=== PATIENT | female | born 1980 | race Caucasian/White ===

== ENCOUNTER 2016-11-12 12:47 | Day surgery (SDC) | payer BC, MEDICAID ==
[2016-11-12] MEDS ORDERED: PROPOFOL 10 MG/ML VIAL IV ONE ×2 (14:00→14:48)
[2016-11-12] MEDS ORDERED: LIDOCAINE 2% MDV (20MG/ML) 20ML VIAL IV ONE (14:48)
--- NOTE | 2016-11-15 08:30 | Operative Note ---
DATE OF SURGERY: 11/12/2016 SURGEON: Cara Jean Baptiste MD OPERATION: COLONOSCOPY. INDICATIONS: This is a 36-year-old female with history of chronic diarrhea who presented for colonoscopy. POSTOPERATIVE DIAGNOSIS: Normal colonic and terminal ileum mucosa with no neoplasm or ulcerative lesions. ANESTHESIA: Sedation is per Anesthesia. Pulse oximetry was monitored throughout the procedure to maintain O2 saturation of 90% or greater. Supplemental oxygen was administered via nasal cannula. Cardiac and vital signs were monitored throughout the duration of the procedure, and they were stable. The procedure of colonoscopy and risks and benefits of the procedure, including the risk of bleeding and perforation, among others, were explained to the patient who voiced understanding and desired to have the procedure done. Physical examination was performed, and the patient was found stable for sedation. PROCEDURE: The patient was placed in the left lateral position. Sedation was initiated. A digital rectal exam was performed and showed some mild external hemorrhoids with no palpable rectal masses. An Olympus PCF-180AL colonoscope was then inserted into the rectum under direct visualization. It was advanced to the cecum without difficulty. The ileocecal valve and appendiceal orifice were identified and photographed. The colonic mucosa was carefully examined upon introduction of the colonoscope. There were no lesions noted. The ileocecal valve was intubated and the terminal ileum mucosa was inspected for about 10 cm and it appeared normal. The colonoscope was then withdrawn while carefully examining the colonic mucosal surfaces. No other lesions were noted. Random biopsies were obtained from the ileocecal valve and the rest of the colon. In the rectum, retroflexion was performed and grade 1 internal hemorrhoids were noted. The colonoscope was then withdrawn and the procedure was terminated. The patient tolerated the procedure well without any immediate complications. She remained with stable vital signs and was transferred to the recovery room. RECOMMENDATIONS: 1. She should be on a high-fiber diet. 2. She is to have a repeat colonoscopy at age 52. Thank you for allowing me to participate in the care of your patient. Cara Jean Baptiste MD CC: Dr. Morales GUSTAFSON
== END 2016-11-12 15:00 | disposition home or self-care (01) ==
LOC: HOP 12:47
PROVIDERS: ATTEND Internal Medicine Gastroenterology
DX: R19.7 Diarrhea, unspecified (principal); E78.00 Pure hypercholesterolemia, unspecified; E11.9 Type 2 diabetes mellitus without complications; Z79.4 Long term (current) use of insulin; F31.9 Bipolar disorder, unspecified; I10 Essential (primary) hypertension
CPT/HCPCS: 80053; 83036

== ENCOUNTER 2016-12-16 19:46 | Emergency (ER) | payer BC, MEDICAID ==
--- NOTE | 2016-12-16 20:22 | Emergency Department Record ---
History of Present Illness - General Chief Complaint: Headache Migraine Stated Complaint: MIGRAINE Time Seen by Provider: 12/16/16 20:21 Mode of Arrival: Ambulatory - History of Present Illness Initial Comments: The patient is here due to a BISHOP for the last 12 hours that will not go away. The pain is a throbbing pain in the R frontal area that came on this AM and gradually worsened. She has nausea but no vomiting and denies any visual changes. The patient has a long hx of these exact same BISHOP's and is seeing an Neurologist at [facility]. She usually receive Reglan, Benadryl and Toradol for the pain with resolution of her symptoms. MD Complaint: Headache, "Migraine" Onset/Timin -: Hour(s) Onset Description: Gradual Location: Frontal, Neck, Right Severity scale (1-10): 9 Quality: Pulsatile, Throbbing, Similar to previous headaches Consistency: Constant Improves With: Nothing Worsens With: None, Movement of head/neck Treatments Prior to Arrival: Prescription analgesic - Related Data Home Medications Medication Instructions Recorded Confirmed Last Taken Insulin Aspart [Novolog] 100 unit SQ TID 03/04/14 12/16/16 12/15/16 Dapagliflozin Propanediol [Farxiga] 10 mg PO DAILY 04/03/15 12/16/16 12/15/16 Insulin Detemir [Levemir] 120 unit SQ ASDIR 04/03/15 12/16/16 12/15/16 Liraglutide [Victoza 2-Cas] 1.2 mg SQ DAILY pen.injctr 06/01/16 12/16/16 Quetiapine Fumarate [Seroquel] 100 mg PO QAM tab 12/14/16 12/16/16 12/15/16 Quetiapine Fumarate [Seroquel] 100 mg PO QPM tab 12/14/16 12/16/16 12/15/16 Previous Rx's Medication Instructions Recorded Metformin HCl [Glucophage] 1,000 mg PO BID #180 tablet 05/21/15 Allergies Allergy/AdvReac Type Severity Reaction Status Date / Time doxycycline Allergy Intermediate VOMITING Verified 12/16/16 20:18 fluoxetine HCl [From Prozac] Allergy Intermediate HYPERSENSIT Verified 12/16/16 20:18 IVITY Sulfa (Sulfonamide Allergy Intermediate HIVES Verified 02/16/17 20:18 Antibiotics) sulfamethoxazole Allergy Intermediate HIVES Verified 12/16/16 20:18 [From Bactrim] sumatriptan [From Imitrex] Allergy Intermediate TACHYCARDIA Verified 12/16/16 20 :18 sumatriptan succinate Allergy Intermediate TACHYCARDIA Verified 12/16/16 20:18 [From Imitrex] topiramate [From Topamax] Allergy Intermediate DIZZINESS Verified 12/16/16 20:18 trimethoprim [From Bactrim] Allergy Intermediate HIVES Verified 12/16/16 20:18 SILK TAPE AdvReac Mild RASH Uncoded 12/16/16 20:18 Travel Screening - Travel/Exposure Within Last 30 Days Have you traveled within the last 30 days?: No - Travel/Exposure Within Last Year Have you traveled outside the [place] in the last year?: No - Additonal Travel Details Have you been exposed to anyone with a communicable illness?: No - Travel Symptoms Symptom Screening: None Review of Systems Constitutional: Denies: Chills, Fever, Malaise Eyes: Denies: Eye discharge ENT: Denies: Congestion Respiratory: Denies: Cough Cardiovascular: Denies: Arrhythmia Past Medical History - SOCIAL HISTORY Smoking Status: Never smoker Alcohol Use: None Drug Use Detail:: Marijuana - RESPIRATORY Hx Respiratory Disorders: Yes Hx Bronchitis: Yes (2014) Hx Sleep Apnea: Yes Hx of CPAP: No - CARDIOVASCULAR Hx Cardio Disorders: No Hx Edema: Yes Hx Hypertension: Yes Comment:: high cholesterol - NEURO Hx Neuro Disorders: Yes Hx Headaches: Yes Hx of Migraines: Yes Hx Neuropathy: Yes (BLE) Hx Seizures: Yes (high fever related as a child none since 7yrs old) - GI Hx GI Disorders: Yes Hx Abdominal Pain: Yes Hx Reflux: Yes Hx Irritable Bowel: Yes - Hx Genitourinary Disorders: No Hx UTI: Yes Comment:: PCOS, endometriosis in abd cavity - ENDOCRINE Hx Endocrine Disorders: Yes Hx Diabetes: Yes Hx Thyroid Disease: No - MUSCULOSKELETAL Hx Musculoskeletal Disorders: Yes Comment:: Bulging discs - PSYCH Hx Psych Problems: No Hx Anxiety: Yes (panic attacks) Hx Behavior Problems: Yes (bipolar) - HEMATOLOGY/ONCOLOGY Hx Hematology/Oncology Disorders: No Family Medical History Any Significant Family History?: No Hx Cancer: Father, Mother, Grandparents *Cancer Comment: lung, colon, prostate, melanoma Hx Diabetes: Father, Mother, Grandparents Hx Heart Disease: Father, Mother Physical Exam - General General Appearance: Alert, Oriented x3, Cooperative, No acute distress - Head Head exam: Atraumatic, Normocephalic, Normal inspection - Eye Eye exam: Normal appearance - Neck Neck exam: Normal inspection, Full ROM. negative: Lymphadenopathy, Meningismus (The neck is very supple.), Tenderness - Respiratory Respiratory exam: Normal lung sounds bilaterally. negative: Respiratory distress - Cardiovascular Cardiovascular Exam: Regular rate, Normal rhythm, Normal heart sounds - Extremities Extremities exam: Normal inspection, Full ROM, Normal capillary refill. negative: Tenderness - Neurological Neurological exam: Alert, Normal gait, Other (Neg Drift and Rhomberg exams.). negative: Abnormal gait, Altered, Motor sensory deficit Course Vital Signs 12/16/16 19:56 Temperature 99.2 F Pulse Rate [ 103 H Pulse Ox Probe] Respiratory 18 Rate Blood Pressure 124/78 [Left Arm] Pulse Ox 98 - Reevaluation(s) Reevaluation #1: The patient is doing much better and the BISHOP is much improved. She feels ready for home. She denies any new symptoms or new issues with her BISHOP's. 12/16/16 21:51 Disposition Disposition: Discharge Clinical Impression: Migraine Qualifiers: Migraine type: other Status migrainosus presence: without status migrainosus Intractability: not intractable Qualified Code(s): G43.809 - Other migraine, not intractable, without status migrainosus Disposition: Home, Self-Care Condition: (1) Good Instructions: Migraine Headache (ED) Additional Instructions: Continue your regular migraine medicine regimen. Please see your PCP for recheck next week if needed. Return to the ER if worse. Forms: Patient Portal Access Time of Disposition: 21:50
[2016-12-16] MEDS ORDERED: METOCLOPRAMIDE HCL 10 MG/2 ML VIAL IVP ONE (20:34)
[2016-12-16] MEDS ORDERED: DIPHENHYDRAMINE HCL IV 50 MG/ML VIAL IVP ONE (20:34)
[2016-12-16] MEDS ORDERED: 0.9 % SODIUM CHLORIDE 1,000 ML BAG IV ONE (20:34)
[2016-12-16] MEDS ORDERED: KETOROLAC 30 MG/ML VIAL IVP ONE (20:34)
== END 2016-12-16 21:58 | disposition home or self-care (01) ==
LOC: ER 19:46
DX: G43.809 Other migraine, not intractable, without status migrainosus (principal); R11.0 Nausea
CPT/HCPCS: 99284 ×2; 96374; 96375; J1885; J1200; J2765; J7030

== ENCOUNTER 2016-12-29 18:26 | Emergency (ER) | payer BC, MEDICAID ==
[2016-12-29 20:07] LABS: BASO % 0.1 % (0-6); EOS % 9.7 % (0-6); HEMATOCRIT 33.8 % (35.0-47.0); HEMOGLOBIN 11.3 gm/dl (11.6-16.0); LYMPH % 30.6 % (16-45); MEAN CELL VOLUME 88.7 fl (81-97); MEAN CORPUSCULAR HGB CONC 33.4 g/dl (32-36); MEAN PLATELET VOLUME 10.6 fl (7.4-10.4); MONO % 6.6 % (0-9); PLATELET COUNT 167 K/uL (130-400); RED BLOOD COUNT 3.81 M/uL (3.80-5.40); RED CELL DISTRIBUTION WIDTH 14.9 % (11.5-14.5); WHITE BLOOD COUNT W/O DIFF 6.7 K/uL (4.2-12.2)
[2016-12-29 20:08] LABS: MEAN CORPUSCULAR HEMOGLOBIN 29.6 pg (27-33)
[2016-12-29 20:22] LABS: ANION GAP 16.5 (7-16); BLOOD UREA NITROGEN 15 mg/dL (7-17); CARBON DIOXIDE 24.5 mmol/L (22-30); CREATININE 0.7 mg/dL (0.52-1.04); EST GLOMERULAR FILTRATION RATE > 60 ml/min; GLUCOSE,RANDOM 374 mg/dL (70-110)
[2016-12-29] MEDS ORDERED: HUMULIN R 100 UNIT/ML VIAL SC ONE (20:44)
[2016-12-29] MEDS ORDERED: HUMULIN R 100 UNIT/ML VIAL SQ ONE (20:44)
[2016-12-29] MEDS ORDERED: HYDROCODONE/APAP 5/325MG TABLET PO ONE (20:56)
--- NOTE | 2016-12-29 20:58 | Emergency Department Record ---
History of Present Illness - General Chief complaint: Rash Stated complaint: RASH ON NECK Time Seen by Provider: 12/29/16 19:24 Source: Patient Mode of Arrival: Ambulatory Limitations: No limitations - History of Present Illness Initial comments: pt has rash on back of her neck which is getting worse. she has had it for 2 wks and saw her family doctor who gave her an ointment for it. it continues to get worse and is painful MD complaint: Abscess/boil, Rash Onset/Timin -: Week(s) Hx Tetanus Toxoid Vaccination: Yes Year of Tetanus Vaccination: 2011 Location: Neck Severity: Moderate Severity scale (1-10): 9 Quality: Aching Consistency: Constant Improves with: None Worsens with: Palpation, Movement Associated symptoms: Denies other symptoms Treatments Prior to Arrival: OTC topical medication - Related Data Home Medications Medication Instructions Recorded Confirmed Last Taken Insulin Aspart [Novolog] 100 unit SQ TID 03/04/14 12/29/16 1 Day Ago Dapagliflozin Propanediol [Farxiga] 10 mg PO DAILY 04/03/15 12/29/16 1 Day Ago Insulin Detemir [Levemir] 120 unit SQ ASDIR 04/03/15 12/29/16 1 Day Ago Liraglutide [Victoza 2-Cas] 1.2 mg SQ DAILY pen.injctr 06/01/16 12/29/16 1 Day Ago Quetiapine Fumarate [Seroquel] 100 mg PO QAM tab 12/14/16 12/29/16 1 Day Ago Quetiapine Fumarate [Seroquel] 100 mg PO QPM tab 12/14/16 12/29/16 1 Day Ago Previous Rx's Medication Instructions Recorded Metformin HCl [Glucophage] 1,000 mg PO BID #180 tablet 05/21/15 Clindamycin HCl [Cleocin HCl] 300 mg PO QID #40 capsule 12/29/16 Hydrocodone/Acetaminophen [Brave 1 tab PO Q6H PRN #10 tab 12/29/16 5mg/325mg] Allergies Allergy/AdvReac Type Severity Reaction Status Date / Time doxycycline Allergy Intermediate VOMITING Verified 12/29/16 18:54 fluoxetine HCl [From Prozac] Allergy Intermediate HYPERSENSIT Verified 12/29/16 18:54 IVITY Sulfa (Sulfonamide Allergy Intermediate HIVES Verified 12/29/16 18:54 Antibiotics) sulfamethoxazole Allergy Intermediate HIVES Verified 12/29/16 18:54 [From Bactrim] sumatriptan [From Imitrex] Allergy Intermediate TACHYCARDIA Verified 12/29/16 18 :54 sumatriptan succinate Allergy Intermediate TACHYCARDIA Verified 12/29/16 18:54 [From Imitrex] trimethoprim [From Bactrim] Allergy Intermediate HIVES Verified 12/29/16 18:54 SILK TAPE AdvReac Mild RASH Uncoded 12/29/16 18:54 Travel Screening - Travel/Exposure Within Last 30 Days Have you traveled within the last 30 days?: No - Travel/Exposure Within Last Year Have you traveled outside the [place] in the last year?: No - Additonal Travel Details Have you been exposed to anyone with a communicable illness?: No - Travel Symptoms Symptom Screening: None Review of Systems Reviewed: No additional complaints except as noted below Constitutional: Reports: As per HPI. Denies: Chills, Fever, Malaise, Night sweats, Weakness, Weight change Eyes: Reports: As per HPI. Denies: Eye discharge, Eye pain, Photophobia, Vision change ENT: Reports: As per HPI. Denies: Congestion, Dental pain, Ear pain, Epistaxis , Hearing loss, Throat pain Respiratory: Reports: As per HPI. Denies: Cough, Dyspnea, Hemoptysis, Stridor, Wheezes Cardiovascular: Reports: As per HPI. Denies: Arrhythmia, Chest pain, Dyspnea on exertion, Edema, Murmurs, Orthopnea, Palpitations, Paroxysmal nocturnal dyspnea, Rheumatic Fever, Syncope Endocrine: Reports: As per HPI. Denies: Fatigue, Heat or cold intolerance, Polydipsia, Polyuria Gastrointestinal: Reports: As per HPI. Denies: Abdominal pain, Constipation, Diarrhea, Hematemesis, Hematochezia, Melena, Nausea, Vomiting Genitourinary: Reports: As per HPI. Denies: Abnormal menses, Discharge, Dyspareunia, Dysuria, Frequency, Hematuria, Incontinence, Retention, Urgency Musculoskeletal: Reports: As per HPI. Denies: Arthralgia, Back pain, Gout, Joint swelling, Myalgia, Neck pain Skin: Reports: As per HPI. Denies: Bruising, Change in color, Change in hair/ nails, Lesions, Pruritus, Rash Neurological: Reports: As per HPI. Denies: Abnormal gait, Confusion, Headache, Numbness, Paresthesias, Seizure, Tingling, Tremors, Vertigo, Weakness Psychiatric: Reports: As per HPI. Denies: Anxiety, Auditory hallucinations, Depression, Homicidal thoughts, Suicidal thoughts, Visual hallucinations Hematological/Lymphatic: Reports: As per HPI. Denies: Anemia, Blood Clots, Easy bleeding, Easy bruising, Swollen glands Past Medical History - SOCIAL HISTORY Smoking Status: Never smoker Alcohol Use: None Drug Use: None - RESPIRATORY Hx Respiratory Disorders: Yes Hx Bronchitis: Yes (2015) Hx Sleep Apnea: Yes Hx of CPAP: No - CARDIOVASCULAR Hx Cardio Disorders: No Hx Edema: Yes Hx Hypertension: Yes Comment:: high cholesterol - NEURO Hx Neuro Disorders: Yes Hx Headaches: Yes Hx of Migraines: Yes Hx Neuropathy: Yes (BLE) Hx Seizures: Yes (high fever related as a child none since 7yrs old) - GI Hx GI Disorders: Yes Hx Abdominal Pain: Yes Hx Reflux: Yes Hx Irritable Bowel: Yes - Hx Genitourinary Disorders: No Hx UTI: Yes Comment:: PCOS, endometriosis in abd cavity - ENDOCRINE Hx Endocrine Disorders: Yes Hx Diabetes: Yes Hx Thyroid Disease: No - MUSCULOSKELETAL Hx Musculoskeletal Disorders: Yes Comment:: Bulging discs - PSYCH Hx Psych Problems: No Hx Anxiety: Yes (panic attacks) Hx Behavior Problems: Yes (bipolar) - HEMATOLOGY/ONCOLOGY Hx Hematology/Oncology Disorders: No Family Medical History Any Significant Family History?: Yes Hx Cancer: Father, Mother, Grandparents *Cancer Comment: lung, colon, prostate, melanoma Hx Diabetes: Father, Mother, Grandparents Hx Heart Disease: Father, Mother Physical Exam - General General Appearance: Alert, Oriented x3, Cooperative, Mild distress - Head Head exam: Normal inspection - Eye Eye exam: Normal appearance, PERRL, EOMI Pupils: Normal accommodation - ENT ENT exam: Normal exam, Mucous membranes moist, Normal external ear exam, Normal orophraynx Ear exam: Normal external inspection. negative: External canal tenderness Nasal Exam: Normal inspection. negative: Discharge, Sinus tenderness Mouth exam: Normal external inspection, Tongue normal Teeth exam: Normal inspection. negative: Dental caries Throat exam: Normal inspection. negative: Tonsillar erythema, Tonsillar exudate - Neck Neck exam: Full ROM, Tenderness, Other (rash on back of neck) - Respiratory Respiratory exam: Normal lung sounds bilaterally. negative: Respiratory distress - Cardiovascular Cardiovascular Exam: Regular rate, Normal rhythm, Normal heart sounds - GI/Abdominal GI/Abdominal exam: Soft, Normal bowel sounds. negative: Tenderness - Rectal Rectal exam: Deferred - exam: Deferred - Extremities Extremities exam: Normal inspection, Full ROM, Normal capillary refill. negative: Tenderness - Back Back exam: Reports: Normal inspection, Full ROM. Denies: Muscle spasm, Rash noted, Tenderness - Neurological Neurological exam: Alert, CN II-XII intact, Normal gait, Oriented X3 - Psychiatric Psychiatric exam: Normal affect, Normal mood - Skin Skin exam: Dry, Intact, Normal color, Warm Course Vital Signs 12/29/16 18:48 Temperature 99.2 F Pulse Rate 93 H Respiratory 20 Rate Blood Pressure 156/99 Pulse Ox 98 Medical Decision Making - Lab Data Result diagrams: 12/29/16 20:00 12/29/16 20:00 Lab Results 12/29/16 12/29/16 Range/Units 20:00 20:00 WBC 6.7 (4.2-12.2) K/uL RBC 3.81 (3.80-5.40) M/uL Hgb 11.3 L (11.6-16.0) gm/dl Hct 33.8 L (35.0-47.0) % MCV 88.7 (81-97) fl MCH 29.6 (27-33) pg MCHC 33.4 (32-36) g/dl RDW 14.9 H (11.5-14.5) % Plt Count 167 (130-400) K/uL MPV 10.6 H (7.4-10.4) fl Gran % 53.0 (47-80) % Lymphocytes % 30.6 (16-45) % Monocytes % 6.6 (0-9) % Eosinophils % 9.7 H (0-6) % Basophils % 0.1 (0-6) % Sodium 136 (136-145) mmol/L Potassium 4.6 (3.5-5.1) mmol/L Chloride 95 L (98-107) mmol/L Carbon Dioxide 24.5 (22-30) mmol/L Anion Gap 16.5 H (7-16) BUN 15 (7-17) mg/dL Creatinine 0.7 (0.52-1.04) mg/dL Estimated GFR > 60 ml/min Random Glucose 374 H (70-110) mg/dL Calcium 9.4 (8.5-10.1) mg/dL Disposition Disposition: Discharge Clinical Impression: Cellulitis, neck, Thyroid nodule Hyperglycemia due to type 2 diabetes mellitus Qualifiers: Diabetes mellitus certified massage therapist insulin use: with certified massage therapist use Qualified Code(s): E11.65 - Type 2 diabetes mellitus with hyperglycemia; Z79.4 - group home (current ) use of insulin Disposition: Home, Self-Care Condition: (1) Good Instructions: Cellulitis (ED), Thyroid Nodules (ED), Diabetic Hyperglycemia (ED ) Additional Instructions: follow up with family doctor. return sooner if worse. moist heat 4 time a day. get ultrasound of thyroid. Prescriptions: Clindamycin HCl [Cleocin HCl] 300 mg PO QID #40 capsule Hydrocodone/Acetaminophen [Brave 5mg/325mg] 1 tab PO Q6H PRN #10 tab PRN Reason: Pain - General Forms: Patient Portal Access
[2016-12-29] MEDS ORDERED: CLINDAMYCIN 150 MG CAP PO ONE (21:03)
== END 2016-12-29 21:36 | disposition home or self-care (01) ==
LOC: ER 18:26
DX: L03.221 Cellulitis of neck (principal); E04.1 Nontoxic single thyroid nodule; E11.65 Type 2 diabetes mellitus with hyperglycemia; Z79.4 Long term (current) use of insulin; I10 Essential (primary) hypertension
CPT/HCPCS: 36416; 70491; 80048; 82948; 85025; 96372; 99283; 99284

== ENCOUNTER 2017-01-23 16:18 | Emergency (ER) | payer BC, MEDICAID ==
--- NOTE | 2017-01-23 17:25 | Emergency Department Record ---
History of Present Illness - General Chief Complaint: Headache Migraine Stated Complaint: HEADACHE FOR A WEEK Time Seen by Provider: 01/23/17 17:18 Source: Patient, Family Mode of Arrival: Ambulatory Limitations: No limitations - History of Present Illness Initial Comments: 36 yo female presents with headache. She states it has been present for about one week. She has a long history of migraines. This headache has similar features to her migraine. She has light sensitivity. She has nausea and some dry heaves. The location is typical. No fevers. No injury or trauma. She is followed for her migraines by Dr Thornton and her neurologist at [facility]. She has had migraines since age 18. MD Complaint: Headache, "Migraine" Onset/Timin -: Days(s) Onset Description: Gradual Location: Diffuse Severity: Moderate Severity scale (1-10): 9 Quality: Aching Consistency: Constant, Intermittent Improves With: Nothing Worsens With: Exertion/activity, Light, Noise Associated Symptoms: Nausea, Photophobia, Sensitivity to sound - Symptoms of Stroke Onset of Symptoms Date: 01/15/17 - Related Data Home Medications Medication Instructions Recorded Confirmed Last Taken Insulin Aspart [Novolog] 100 unit SQ TID 03/04/14 01/23/17 1 Day Ago Dapagliflozin Propanediol [Farxiga] 10 mg PO DAILY 04/03/15 01/23/17 1 Day Ago Insulin Detemir [Levemir] 120 unit SQ ASDIR 04/03/15 01/23/17 1 Day Ago Liraglutide [Victoza 2-Cas] 1.2 mg SQ DAILY pen.injctr 06/01/16 01/23/17 1 Day Ago Previous Rx's Medication Instructions Recorded Metformin HCl [Glucophage] 1,000 mg PO BID #180 tablet 05/21/15 Allergies Allergy/AdvReac Type Severity Reaction Status Date / Time doxycycline Allergy Intermediate VOMITING Verified 01/23/17 17:14 fluoxetine HCl [From Prozac] Allergy Intermediate HYPERSENSIT Verified 01/23/17 17:14 IVITY Sulfa (Sulfonamide Allergy Intermediate HIVES Verified 01/23/17 17:14 Antibiotics) sulfamethoxazole Allergy Intermediate HIVES Verified 01/23/17 17:14 [From Bactrim] sumatriptan [From Imitrex] Allergy Intermediate TACHYCARDIA Verified 01/23/17 17 :14 sumatriptan succinate Allergy Intermediate TACHYCARDIA Verified 01/23/17 17:14 [From Imitrex] trimethoprim [From Bactrim] Allergy Intermediate HIVES Verified 01/23/17 17:14 SILK TAPE AdvReac Mild RASH Uncoded 01/23/17 17:14 Travel Screening - Travel/Exposure Within Last 30 Days Have you traveled within the last 30 days?: No - Travel/Exposure Within Last Year Have you traveled outside the [place] in the last year?: No - Additonal Travel Details Have you been exposed to anyone with a communicable illness?: No - Travel Symptoms Symptom Screening: None Review of Systems Constitutional: Denies: Chills, Fever, Malaise, Weakness Eyes: Reports: Photophobia. Denies: Eye discharge, Eye pain, Vision change ENT: Denies: Congestion, Throat pain Respiratory: Denies: Cough, Dyspnea, Wheezes Cardiovascular: Denies: Chest pain, Palpitations, Syncope Endocrine: Denies: Fatigue Gastrointestinal: Reports: Nausea. Denies: Abdominal pain, Diarrhea, Vomiting Genitourinary: Denies: Dysuria, Urgency Musculoskeletal: Reports: Back pain (chronic). Denies: Arthralgia, Joint swelling, Myalgia Skin: Denies: Bruising, Change in color, Rash Neurological: Reports: Headache. Denies: Confusion, Numbness, Paresthesias, Tingling, Tremors, Vertigo, Weakness Psychiatric: Denies: Anxiety Hematological/Lymphatic: Denies: Blood Clots, Easy bleeding, Easy bruising, Swollen glands Past Medical History - SOCIAL HISTORY Smoking Status: Never smoker Alcohol Use: None Drug Use: None - RESPIRATORY Hx Respiratory Disorders: Yes Hx Bronchitis: Yes (2015) Hx Sleep Apnea: Yes Hx of CPAP: No - CARDIOVASCULAR Hx Cardio Disorders: No Hx Edema: Yes Hx Hypertension: Yes Comment:: high cholesterol - NEURO Hx Neuro Disorders: Yes Hx Headaches: Yes Hx of Migraines: Yes Hx Neuropathy: Yes (BLE) Hx Seizures: Yes (high fever related as a child none since 7yrs old) - GI Hx GI Disorders: Yes Hx Abdominal Pain: Yes Hx Reflux: Yes Hx Irritable Bowel: Yes - Hx Genitourinary Disorders: No Hx UTI: Yes Comment:: PCOS, endometriosis in abd cavity - ENDOCRINE Hx Endocrine Disorders: Yes Hx Diabetes: Yes Hx Thyroid Disease: No - MUSCULOSKELETAL Hx Musculoskeletal Disorders: Yes Comment:: Bulging discs - PSYCH Hx Psych Problems: No Hx Anxiety: Yes (panic attacks) Hx Behavior Problems: Yes (bipolar) - HEMATOLOGY/ONCOLOGY Hx Hematology/Oncology Disorders: No Family Medical History Any Significant Family History?: Yes Hx Cancer: Father, Mother, Grandparents *Cancer Comment: lung, colon, prostate, melanoma Hx Diabetes: Father, Mother, Grandparents Hx Heart Disease: Father, Mother Physical Exam - General General Appearance: Alert, Oriented x3, Cooperative, No acute distress Limitations: No limitations - Head Head exam: Normal inspection - Eye Eye exam: Normal appearance, PERRL, EOMI. negative: Conjunctival injection, Nystagmus, Periorbital swelling - ENT ENT exam: Normal exam, Mucous membranes moist Ear exam: Normal external inspection Nasal Exam: Normal inspection Mouth exam: Normal external inspection Teeth exam: Normal inspection Throat exam: Normal inspection - Neck Neck exam: Normal inspection, Full ROM. negative: Tenderness - Respiratory Respiratory exam: Normal lung sounds bilaterally. negative: Respiratory distress - Cardiovascular Cardiovascular Exam: Regular rate, Normal rhythm, Normal heart sounds - GI/Abdominal GI/Abdominal exam: Soft, Other (Morbid obesity) - Rectal Rectal exam: Deferred - exam: Deferred - Extremities Extremities exam: Normal inspection, Full ROM, Normal capillary refill. negative: Tenderness - Back Back exam: Reports: Normal inspection, Full ROM. Denies: Muscle spasm, Rash noted, Tenderness - Neurological Neurological exam: Alert, CN II-XII intact, Normal gait, Oriented X3. negative : Altered, Motor sensory deficit - Psychiatric Psychiatric exam: Normal affect, Normal mood. negative: Agitated, Anxious - Skin Skin exam: Dry, Intact, Normal color, Warm Course Vital Signs 01/23/17 17:10 Temperature 99.5 F Pulse Rate 111 H Respiratory 20 Rate Blood Pressure 129/72 Pulse Ox 96 - Reevaluation(s) Reevaluation #1: The patient is much improved at this time Her pain and nausea are well controlled DC home to follow up with the PCP 01/23/17 18:58 Disposition Disposition: Discharge Clinical Impression: Migraine Qualifiers: Migraine type: other Status migrainosus presence: without status migrainosus Intractability: not intractable Qualified Code(s): G43.809 - Other migraine, not intractable, without status migrainosus Disposition: Home, Self-Care Condition: (1) Good Instructions: Migraine Headache (ED) Additional Instructions: Call your doctor tomorrow for close follow up Return if you have any uncontrolled pain, new symptoms or concenrs. Forms: Patient Portal Access Time of Disposition: 18:58
[2017-01-23] MEDS ORDERED: DIPHENHYDRAMINE HCL IV 50 MG/ML VIAL IVP ONE (17:26)
[2017-01-23] MEDS ORDERED: 0.9 % SODIUM CHLORIDE 1,000 ML BAG IV ONE (17:26)
[2017-01-23] MEDS ORDERED: METOCLOPRAMIDE HCL 10 MG/2 ML VIAL IVP ONE (17:26)
[2017-01-23] MEDS ORDERED: KETOROLAC 30 MG/ML VIAL IVP ONE (17:26)
[2017-01-23] MEDS ORDERED: ACETAMINOPHEN 1,000 MG in SODIUM CHLORIDE 1 BAG IVPB ONE (18:14)
[2017-01-23] MEDS ORDERED: DEXAMETHASONE SOD PHOSPHATE 10MG/ML VIAL IVP ONE ×2 (18:14→18:15)
[2017-01-23] MEDS ORDERED: MORPHINE SULFATE 5 MG/ML PFS IVP ONE (18:16)
== END 2017-01-23 19:15 | disposition home or self-care (01) ==
LOC: ER 16:18
DX: G43.809 Other migraine, not intractable, without status migrainosus (principal); R11.0 Nausea; H53.149 Visual discomfort, unspecified
CPT/HCPCS: 96374; 96375; 99284; J1200; J1885; J2765; J7030

== ENCOUNTER 2017-03-03 20:46 | Emergency (ER) | payer MEDICAID ==
[2017-03-03] MEDS ORDERED: DIPHENHYDRAMINE HCL IV 50 MG/ML VIAL IVP ONE (20:58)
[2017-03-03] MEDS ORDERED: 0.9 % SODIUM CHLORIDE 1,000 ML BAG IV ONE (20:58)
[2017-03-03] MEDS ORDERED: KETOROLAC 30 MG/ML VIAL IVP ONE (20:59)
[2017-03-03] MEDS ORDERED: METOCLOPRAMIDE HCL 10 MG/2 ML VIAL IVP ONE (20:59)
--- NOTE | 2017-03-03 20:59 | Emergency Department Record ---
History of Present Illness - General Chief Complaint: Headache Migraine Stated Complaint: MIGRAINE Time Seen by Provider: 03/03/17 20:52 Source: Patient Mode of Arrival: Ambulatory Limitations: No limitations - History of Present Illness Initial Comments: 36 yo female presents with a headache. She has had a headache for several days. She has had migraines since she a teenager. She does follow with Dr thornton and a [facility] [place] [facility] neurologist for migraines. She gets light sensitive and nausea. The current symptoms are typical of her migraines. No new or unusual symptoms. No trauma or fevers. MD Complaint: "Migraine" -: Days(s) Onset Description: Gradual Location: Diffuse Quality: Aching Consistency: Constant Improves With: Nothing Worsens With: Light Associated Symptoms: Photophobia Treatments Prior to Arrival: Migraine medication - Related Data Home Medications Medication Instructions Recorded Confirmed Last Taken Insulin Aspart [Novolog] 100 unit SQ TID 03/04/14 03/03/17 1 Day Ago ~01/22/17 Dapagliflozin Propanediol [Farxiga] 10 mg PO DAILY 04/03/15 03/03/17 1 Day Ago ~01/22/17 Insulin Detemir [Levemir] 120 unit SQ ASDIR 04/03/15 03/03/17 1 Day Ago ~01/22/17 Liraglutide [Victoza 2-Cas] 1.2 mg SQ DAILY pen.injctr 06/01/16 03/03/17 1 Day Ago ~01/22/17 Previous Rx's Medication Instructions Recorded Metformin HCl [Glucophage] 1,000 mg PO BID #180 tablet 05/21/15 Allergies Allergy/AdvReac Type Severity Reaction Status Date / Time doxycycline Allergy Intermediate VOMITING Unverified 02/02/17 10:17 fluoxetine HCl [From Prozac] Allergy Intermediate HYPERSENSIT Unverified 10:17 IVITY Sulfa (Sulfonamide Allergy Intermediate HIVES Unverified 02/02/17 10:17 Antibiotics) sulfamethoxazole Allergy Intermediate HIVES Unverified 02/02/17 10:17 [From Bactrim] sumatriptan succinate Allergy Intermediate TACHYCARDIA Unverified 02/02/17 10:17 [From Imitrex] trimethoprim [From Bactrim] Allergy Intermediate HIVES Unverified 02/02/17 10:17 topiramate [From Topamax] AdvReac DIZZINESS Verified 03/03/17 20:54 SILK TAPE AdvReac Mild RASH Uncoded 01/23/17 17:14 Imitrex (oral only) AdvReac TACHYCARDIA Uncoded 03/03/17 20:55 Review of Systems Constitutional: Denies: Chills, Fever, Malaise, Weakness Eyes: Reports: Photophobia. Denies: Eye discharge, Eye pain, Vision change ENT: Denies: Congestion, Throat pain Respiratory: Denies: Cough Cardiovascular: Denies: Chest pain, Palpitations, Syncope Endocrine: Denies: Fatigue Gastrointestinal: Reports: Nausea. Denies: Abdominal pain, Diarrhea Genitourinary: Denies: Dysuria, Urgency Musculoskeletal: Denies: Arthralgia, Back pain, Myalgia, Neck pain Skin: Denies: Bruising, Change in color, Rash Neurological: Reports: Headache. Denies: Abnormal gait, Confusion, Numbness, Tingling Psychiatric: Denies: Anxiety Hematological/Lymphatic: Denies: Blood Clots, Easy bleeding, Easy bruising, Swollen glands Past Medical History - SOCIAL HISTORY Smoking Status: Never smoker Drug Use: None - RESPIRATORY Hx Respiratory Disorders: Yes Hx Bronchitis: Yes (2015) Hx Sleep Apnea: Yes Hx of CPAP: No - CARDIOVASCULAR Hx Cardio Disorders: No Hx Edema: Yes Hx Hypertension: Yes Comment:: high cholesterol - NEURO Hx Neuro Disorders: Yes Hx Headaches: Yes Hx of Migraines: Yes Hx Neuropathy: Yes (BLE) Hx Seizures: Yes (high fever related as a child none since 7yrs old) - GI Hx GI Disorders: Yes Hx Abdominal Pain: Yes Hx Reflux: Yes Hx Irritable Bowel: Yes - Hx Genitourinary Disorders: No Hx UTI: Yes Comment:: PCOS, endometriosis in abd cavity - ENDOCRINE Hx Endocrine Disorders: Yes Hx Diabetes: Yes Hx Thyroid Disease: No - MUSCULOSKELETAL Hx Musculoskeletal Disorders: Yes Comment:: Bulging discs - PSYCH Hx Psych Problems: No Hx Anxiety: Yes (panic attacks) Hx Behavior Problems: Yes (bipolar) - HEMATOLOGY/ONCOLOGY Hx Hematology/Oncology Disorders: No Family Medical History Hx Cancer: Father, Mother, Grandparents *Cancer Comment: lung, colon, prostate, melanoma Hx Diabetes: Father, Mother, Grandparents Hx Heart Disease: Father, Mother Physical Exam - General General Appearance: Alert, Oriented x3, Cooperative, No acute distress, Other ( Well appearing) Limitations: No limitations - Head Head exam: Atraumatic, Normocephalic, Normal inspection - Eye Eye exam: Normal appearance, PERRL, EOMI. negative: Conjunctival injection, Nystagmus, Periorbital swelling - ENT ENT exam: Normal exam, Mucous membranes moist Ear exam: Normal external inspection. negative: External canal tenderness Nasal Exam: Normal inspection. negative: Discharge, Sinus tenderness Mouth exam: Normal external inspection, Tongue normal Teeth exam: Normal inspection. negative: Dental caries Throat exam: Normal inspection. negative: Tonsillar erythema, Tonsillar exudate - Neck Neck exam: Normal inspection, Full ROM. negative: Lymphadenopathy, Meningismus , Tenderness, Thyromegaly - Respiratory Respiratory exam: Normal lung sounds bilaterally. negative: Respiratory distress - Cardiovascular Cardiovascular Exam: Regular rate, Normal rhythm, Normal heart sounds - GI/Abdominal GI/Abdominal exam: Soft - Rectal Rectal exam: Deferred - exam: Deferred - Extremities Extremities exam: Normal inspection, Full ROM, Normal capillary refill. negative: Tenderness - Back Back exam: Reports: Normal inspection, Full ROM. Denies: Muscle spasm, Rash noted, Tenderness - Neurological Neurological exam: Alert, CN II-XII intact, Normal gait, Oriented X3. negative : Altered, Motor sensory deficit - Psychiatric Psychiatric exam: Normal affect, Normal mood. negative: Agitated, Anxious - Skin Skin exam: Dry, Intact, Normal color, Warm Course - Reevaluation(s) Reevaluation #1: 03/03/17 20:57 EMR reviewed for prior ED visits and clinic visits she does follow with her PCP regarding her migraines Reevaluation #2: The patient is reporting feeling better Will provide Ofirmev as well and likely re-eval and DC if improved 03/03/17 22:18 Reevaluation #3: 03/03/17 22:46The patient is much improved DC home Disposition Disposition: Discharge Clinical Impression: Migraine Qualifiers: Migraine type: unspecified Status migrainosus presence: without status migrainosus Intractability: not intractable Qualified Code(s): G43.909 - Migraine, unspecified, not intractable, without status migrainosus Disposition: Home, Self-Care Condition: (1) Good Instructions: Migraine Headache (ED) Additional Instructions: Call Dr Thornton tomorrow to discuss your migraines and this ER visit Return if worse, fever, vomiting or any new concerns. Forms: Patient Portal Access Time of Disposition: 22:46
[2017-03-03] MEDS ORDERED: ACETAMINOPHEN 1,000 MG/100 ML BTL IVPB ONE (22:17)
== END 2017-03-03 22:52 | disposition home or self-care (01) ==
LOC: ER 20:46
DX: G43.909 Migraine, unspecified, not intractable, without status migrainosus (principal); R11.0 Nausea; H53.149 Visual discomfort, unspecified
CPT/HCPCS: 99284 ×2; 96374; 96375; J1885; J1200; J2765; J7030

== ENCOUNTER 2017-03-17 18:18 | Emergency (ER) | payer OTHER, MEDICAID ==
[2017-03-17] MEDS ORDERED: DIPHENHYDRAMINE HCL IV 50 MG/ML VIAL IVP ONE (19:50)
[2017-03-17] MEDS ORDERED: METOCLOPRAMIDE HCL 10 MG/2 ML VIAL IVP ONE (19:50)
[2017-03-17] MEDS ORDERED: KETOROLAC 30 MG/ML VIAL IVP ONE (19:50)
[2017-03-17] MEDS ORDERED: 0.9 % SODIUM CHLORIDE 1,000 ML BAG IV ONE (19:51)
--- NOTE | 2017-03-17 20:55 | Emergency Department Record ---
History of Present Illness - General Chief Complaint: Headache Migraine Stated Complaint: BISHOP Time Seen by Provider: 03/17/17 19:37 Source: Patient Mode of Arrival: Ambulatory Limitations: No limitations - History of Present Illness Initial Comments: pt has had migraine for 2 days that oral meds are not working for. it feels the same as always MD Complaint: "Migraine" Onset/Timin -: Days(s) Onset Description: Gradual Location: Frontal Severity scale (1-10): 10 Quality: Pulsatile, Throbbing, Similar to previous headaches Consistency: Constant Improves With: Nothing Worsens With: Light, Noise Associated Symptoms: Nausea, Photophobia, Sensitivity to sound Treatments Prior to Arrival: Migraine medication - Related Data Home Medications Medication Instructions Recorded Confirmed Last Taken Insulin Aspart [Novolog] 100 unit SQ TID 03/04/14 03/03/17 1 Day Ago ~01/22/17 Dapagliflozin Propanediol [Farxiga] 10 mg PO DAILY 04/03/15 03/03/17 1 Day Ago ~01/22/17 Insulin Detemir [Levemir] 120 unit SQ ASDIR 04/03/15 03/03/17 1 Day Ago ~01/22/17 Liraglutide [Victoza 2-Cas] 1.2 mg SQ DAILY pen.injctr 06/01/16 03/03/17 1 Day Ago ~01/22/17 Previous Rx's Medication Instructions Recorded Metformin HCl [Glucophage] 1,000 mg PO BID #180 tablet 05/21/15 Allergies Allergy/AdvReac Type Severity Reaction Status Date / Time doxycycline Allergy Intermediate VOMITING Unverified 02/02/17 10:17 fluoxetine HCl [From Prozac] Allergy Intermediate HYPERSENSIT Unverified 10:17 IVITY Sulfa (Sulfonamide Allergy Intermediate HIVES Unverified 02/02/17 10:17 Antibiotics) sulfamethoxazole Allergy Intermediate HIVES Unverified 02/02/17 10:17 [From Bactrim] sumatriptan succinate Allergy Intermediate TACHYCARDIA Unverified 02/02/17 10:17 [From Imitrex] trimethoprim [From Bactrim] Allergy Intermediate HIVES Unverified 02/02/17 10:17 topiramate [From Topamax] AdvReac DIZZINESS Verified 03/03/17 20:54 SILK TAPE AdvReac Mild RASH Uncoded 01/23/17 17:14 Imitrex (oral only) AdvReac TACHYCARDIA Uncoded 03/03/17 20:55 Travel Screening - Travel/Exposure Within Last 30 Days Have you traveled within the last 30 days?: No - Travel Symptoms Symptom Screening: None Review of Systems Reviewed: No additional complaints except as noted below Constitutional: Reports: As per HPI. Denies: Chills, Fever, Malaise, Night sweats, Weakness, Weight change Eyes: Reports: As per HPI. Denies: Eye discharge, Eye pain, Photophobia, Vision change ENT: Reports: As per HPI. Denies: Congestion, Dental pain, Ear pain, Epistaxis , Hearing loss, Throat pain Respiratory: Reports: As per HPI. Denies: Cough, Dyspnea, Hemoptysis, Stridor, Wheezes Cardiovascular: Reports: As per HPI. Denies: Arrhythmia, Chest pain, Dyspnea on exertion, Edema, Murmurs, Orthopnea, Palpitations, Paroxysmal nocturnal dyspnea, Rheumatic Fever, Syncope Endocrine: Reports: As per HPI. Denies: Fatigue, Heat or cold intolerance, Polydipsia, Polyuria Gastrointestinal: Reports: As per HPI. Denies: Abdominal pain, Constipation, Diarrhea, Hematemesis, Hematochezia, Melena, Nausea, Vomiting Genitourinary: Reports: As per HPI. Denies: Abnormal menses, Discharge, Dyspareunia, Dysuria, Frequency, Hematuria, Incontinence, Retention, Urgency Musculoskeletal: Reports: As per HPI. Denies: Arthralgia, Back pain, Gout, Joint swelling, Myalgia, Neck pain Skin: Reports: As per HPI. Denies: Bruising, Change in color, Change in hair/ nails, Lesions, Pruritus, Rash Neurological: Reports: As per HPI. Denies: Abnormal gait, Confusion, Headache, Numbness, Paresthesias, Seizure, Tingling, Tremors, Vertigo, Weakness Psychiatric: Reports: As per HPI. Denies: Anxiety, Auditory hallucinations, Depression, Homicidal thoughts, Suicidal thoughts, Visual hallucinations Hematological/Lymphatic: Reports: As per HPI. Denies: Anemia, Blood Clots, Easy bleeding, Easy bruising, Swollen glands Past Medical History - SOCIAL HISTORY Smoking Status: Never smoker - RESPIRATORY Hx Respiratory Disorders: Yes Hx Bronchitis: Yes (2014) Hx Sleep Apnea: Yes Hx of CPAP: No - CARDIOVASCULAR Hx Cardio Disorders: No Hx Edema: Yes Hx Hypertension: Yes Comment:: high cholesterol - NEURO Hx Neuro Disorders: Yes Hx Headaches: Yes Hx of Migraines: Yes Hx Neuropathy: Yes (BLE) Hx Seizures: Yes (high fever related as a child none since 7yrs old) - GI Hx GI Disorders: Yes Hx Abdominal Pain: Yes Hx Reflux: Yes Hx Irritable Bowel: Yes - Hx Genitourinary Disorders: Yes Hx UTI: Yes Comment:: PCOS, endometriosis in abd cavity - ENDOCRINE Hx Endocrine Disorders: Yes Hx Diabetes: Yes Hx Thyroid Disease: No - MUSCULOSKELETAL Hx Musculoskeletal Disorders: Yes Comment:: Bulging discs - PSYCH Hx Psych Problems: Yes Hx Anxiety: Yes (panic attacks) Hx Behavior Problems: Yes (bipolar) - HEMATOLOGY/ONCOLOGY Hx Hematology/Oncology Disorders: No Family Medical History Any Significant Family History?: Yes Hx Cancer: Father, Mother, Grandparents *Cancer Comment: lung, colon, prostate, melanoma Hx Diabetes: Father, Mother, Grandparents Hx Heart Disease: Father, Mother Physical Exam - General General Appearance: Alert, Oriented x3, Cooperative, Mild distress - Head Head exam: Normal inspection - Eye Eye exam: Normal appearance, PERRL, EOMI Pupils: Normal accommodation - ENT ENT exam: Normal exam, Mucous membranes moist, Normal external ear exam, Normal orophraynx Ear exam: Normal external inspection. negative: External canal tenderness Nasal Exam: Normal inspection. negative: Discharge, Sinus tenderness Mouth exam: Normal external inspection, Tongue normal Teeth exam: Normal inspection. negative: Dental caries Throat exam: Tonsillar erythema. negative: Tonsillar exudate - Neck Neck exam: Normal inspection, Full ROM. negative: Tenderness - Respiratory Respiratory exam: Normal lung sounds bilaterally. negative: Respiratory distress - Cardiovascular Cardiovascular Exam: Regular rate, Normal rhythm, Normal heart sounds - GI/Abdominal GI/Abdominal exam: Soft, Normal bowel sounds. negative: Tenderness - Rectal Rectal exam: Deferred - exam: Deferred - Extremities Extremities exam: Normal inspection, Full ROM, Normal capillary refill. negative: Tenderness - Back Back exam: Reports: Normal inspection, Full ROM. Denies: Muscle spasm, Rash noted, Tenderness - Neurological Neurological exam: Alert, CN II-XII intact, Normal gait, Oriented X3 - Psychiatric Psychiatric exam: Normal affect, Normal mood - Skin Skin exam: Dry, Intact, Normal color, Warm Course Vital Signs 05/18/17 19:13 Temperature 99.5 F Pulse Rate [ 105 H Pulse Ox Probe] Respiratory 18 Rate Blood Pressure 131/84 [Left Arm] Pulse Ox 96 - Reevaluation(s) Reevaluation #1: 03/17/17 20:53 pt feels better Disposition Disposition: Discharge Clinical Impression: Migraine Qualifiers: Migraine type: unspecified Status migrainosus presence: with status migrainosus Intractability: intractable Qualified Code(s): G43.911 - Migraine, unspecified, intractable, with status migrainosus Disposition: Home, Self-Care Condition: (1) Good Instructions: Migraine Headache (ED) Additional Instructions: follow up with neurologist. return sooner if worse. Forms: Patient Portal Access
== END 2017-03-17 21:16 | disposition home or self-care (01) ==
LOC: ER 18:18
DX: G43.911 Migraine, unspecified, intractable, with status migrainosus (principal); R11.0 Nausea; H53.149 Visual discomfort, unspecified
CPT/HCPCS: 99284 ×2; 96374; 96375; J1885; J1200; J2765; J7030

== ENCOUNTER 2017-03-19 12:03 | Emergency (ER) | payer OTHER, MEDICAID ==
[2017-03-19] MEDS ORDERED: 0.9 % SODIUM CHLORIDE 1,000 ML BAG IV ONE (12:35)
[2017-03-19] MEDS ORDERED: KETOROLAC 30 MG/ML VIAL IVP ONE (12:37)
[2017-03-19] MEDS ORDERED: DIPHENHYDRAMINE HCL IV 50 MG/ML VIAL IVP ONE (12:37)
[2017-03-19] MEDS ORDERED: METOCLOPRAMIDE HCL 10 MG/2 ML VIAL IVP ONE (12:37)
--- NOTE | 2017-03-19 13:19 | Emergency Department Record ---
History of Present Illness - General Chief Complaint: Headache Migraine Stated Complaint: BISHOP Time Seen by Provider: 03/19/17 12:14 Source: Patient, RN notes reviewed Mode of Arrival: Ambulatory - History of Present Illness Initial Comments: headache same as her usual and she said she is planning to see her neurologist and get reevaluated for her headaches MD Complaint: Headache, "Migraine" Onset/Timin -: Days(s) Onset Description: Gradual Location: Diffuse Severity: Mild Severity scale (1-10): 10 Quality: Aching Consistency: Constant Improves With: Nothing Treatments Prior to Arrival: Migraine medication - Related Data Home Medications Medication Instructions Recorded Confirmed Last Taken Insulin Aspart [Novolog] 100 unit SQ TID 03/04/14 03/19/17 1 Day Ago ~03/18/17 Dapagliflozin Propanediol [Farxiga] 10 mg PO DAILY 04/03/15 03/19/17 1 Day Ago ~03/18/17 Insulin Detemir [Levemir] 120 unit SQ ASDIR 04/03/15 03/19/17 1 Day Ago ~03/18/17 Albiglutide [Tanzeum] 50 mg SQ WEEKLY 03/17/17 03/19/17 1 Day Ago ~03/18/17 Previous Rx's Medication Instructions Recorded Metformin HCl [Glucophage] 1,000 mg PO BID #180 tablet 05/21/15 Allergies Allergy/AdvReac Type Severity Reaction Status Date / Time doxycycline Allergy Intermediate VOMITING Verified 03/19/17 12:13 fluoxetine HCl [From Prozac] Allergy Intermediate HYPERSENSIT Verified 03/19/17 12:13 IVITY Sulfa (Sulfonamide Allergy Intermediate HIVES Verified 03/19/17 12:13 Antibiotics) sulfamethoxazole Allergy Intermediate HIVES Verified 03/19/17 12:13 [From Bactrim] sumatriptan succinate Allergy Intermediate TACHYCARDIA Verified 03/19/17 12:13 [From Imitrex] trimethoprim [From Bactrim] Allergy Intermediate HIVES Verified 03/19/17 12:13 topiramate [From Topamax] AdvReac DIZZINESS Verified 03/19/17 12:13 SILK TAPE AdvReac Mild RASH Uncoded 03/19/17 12:13 Imitrex (oral only) AdvReac TACHYCARDIA Uncoded 03/19/17 12:13 Travel Screening - Travel/Exposure Within Last 30 Days Have you traveled within the last 30 days?: No - Travel/Exposure Within Last Year Have you traveled outside the [place] in the last year?: No - Additonal Travel Details Have you been exposed to anyone with a communicable illness?: No - Travel Symptoms Symptom Screening: None Review of Systems Reviewed: No additional complaints except as noted below Constitutional: Reports: As per HPI. Denies: Chills, Fever, Malaise, Night sweats, Weakness, Weight change Eyes: Reports: As per HPI. Denies: Eye discharge, Eye pain, Photophobia, Vision change ENT: Reports: As per HPI. Denies: Congestion, Dental pain, Ear pain, Epistaxis , Hearing loss, Throat pain Respiratory: Reports: As per HPI. Denies: Cough, Dyspnea, Hemoptysis, Stridor, Wheezes Cardiovascular: Reports: As per HPI. Denies: Arrhythmia, Chest pain, Dyspnea on exertion, Edema, Murmurs, Orthopnea, Palpitations, Paroxysmal nocturnal dyspnea, Rheumatic Fever, Syncope Endocrine: Reports: As per HPI. Denies: Fatigue, Heat or cold intolerance, Polydipsia, Polyuria Gastrointestinal: Reports: As per HPI. Denies: Abdominal pain, Constipation, Diarrhea, Hematemesis, Hematochezia, Melena, Nausea, Vomiting Genitourinary: Reports: As per HPI. Denies: Abnormal menses, Discharge, Dyspareunia, Dysuria, Frequency, Hematuria, Incontinence, Retention, Urgency Musculoskeletal: Reports: As per HPI. Denies: Arthralgia, Back pain, Gout, Joint swelling, Myalgia, Neck pain Skin: Reports: As per HPI. Denies: Bruising, Change in color, Change in hair/ nails, Lesions, Pruritus, Rash Neurological: Reports: As per HPI, Headache. Denies: Abnormal gait, Confusion, Numbness, Paresthesias, Seizure, Tingling, Tremors, Vertigo, Weakness Psychiatric: Reports: As per HPI. Denies: Anxiety, Auditory hallucinations, Depression, Homicidal thoughts, Suicidal thoughts, Visual hallucinations Hematological/Lymphatic: Reports: As per HPI. Denies: Anemia, Blood Clots, Easy bleeding, Easy bruising, Swollen glands Past Medical History - SOCIAL HISTORY Smoking Status: Never smoker Alcohol Use: None Drug Use: None - RESPIRATORY Hx Respiratory Disorders: Yes Hx Bronchitis: Yes (2014) Hx Sleep Apnea: Yes Hx of CPAP: No - CARDIOVASCULAR Hx Cardio Disorders: No Hx Edema: Yes Hx Hypertension: Yes Comment:: high cholesterol - NEURO Hx Neuro Disorders: Yes Hx Headaches: Yes Hx of Migraines: Yes Hx Neuropathy: Yes (BLE) Hx Seizures: Yes (high fever related as a child none since 7yrs old) - GI Hx GI Disorders: Yes Hx Abdominal Pain: Yes Hx Reflux: Yes Hx Irritable Bowel: Yes - Hx Genitourinary Disorders: Yes Hx UTI: Yes Comment:: PCOS, endometriosis in abd cavity - ENDOCRINE Hx Endocrine Disorders: Yes Hx Diabetes: Yes Hx Thyroid Disease: No - MUSCULOSKELETAL Hx Musculoskeletal Disorders: Yes Comment:: Bulging discs - PSYCH Hx Psych Problems: Yes Hx Anxiety: Yes (panic attacks) Hx Behavior Problems: Yes (bipolar) - HEMATOLOGY/ONCOLOGY Hx Hematology/Oncology Disorders: No Family Medical History Any Significant Family History?: Yes Hx Cancer: Father, Mother, Grandparents *Cancer Comment: lung, colon, prostate, melanoma Hx Diabetes: Father, Mother, Grandparents Hx Heart Disease: Father, Mother Physical Exam - General General Appearance: Alert, Oriented x3, Cooperative, No acute distress - Head Head exam: Normal inspection - Eye Eye exam: Normal appearance, PERRL Pupils: Normal accommodation - ENT ENT exam: Normal exam, Mucous membranes moist, Normal external ear exam, Normal orophraynx, TM's normal bilaterally Ear exam: Normal external inspection. negative: External canal tenderness Nasal Exam: Normal inspection. negative: Discharge, Sinus tenderness Mouth exam: Normal external inspection, Tongue normal Teeth exam: Normal inspection. negative: Dental caries Throat exam: Normal inspection. negative: Tonsillar erythema, Tonsillar exudate - Neck Neck exam: Normal inspection, Full ROM. negative: Tenderness - Respiratory Respiratory exam: Normal lung sounds bilaterally. negative: Respiratory distress - Cardiovascular Cardiovascular Exam: Regular rate, Normal rhythm, Normal heart sounds - GI/Abdominal GI/Abdominal exam: Soft, Normal bowel sounds. negative: Tenderness - Rectal Rectal exam: Deferred - exam: Deferred - Extremities Extremities exam: Normal inspection, Full ROM, Normal capillary refill. negative: Tenderness - Back Back exam: Reports: Normal inspection, Full ROM. Denies: Muscle spasm, Rash noted, Tenderness - Neurological Neurological exam: Alert, Normal gait, Oriented X3, Reflexes normal - Psychiatric Psychiatric exam: Normal affect, Normal mood - Skin Skin exam: Dry, Intact, Normal color, Warm Course Vital Signs 05/20/17 12:06 Temperature 98.7 F Pulse Rate 111 H Respiratory 16 Rate Blood Pressure 138/77 Pulse Ox 98 improved and neuro check intact - Reevaluation(s) Reevaluation #1: patient headache is better 03/19/17 14:06 Reevaluation #2: feeling better , neuro intact 03/19/17 14:55 Disposition Clinical Impression: Migraine Qualifiers: Migraine type: unspecified Status migrainosus presence: without status migrainosus Intractability: not intractable Qualified Code(s): G43.909 - Migraine, unspecified, not intractable, without status migrainosus Disposition: Home, Self-Care Condition: (1) Good Instructions: Migraine Headache (ED) Additional Instructions: follow up with family in 2-3 days Forms: Patient Portal Access Time of Disposition: 14:53
[2017-03-19] MEDS ORDERED: HYDROMORPHONE HCL 1 MG/ML CPJ IVP ONE (13:41)
== END 2017-03-19 15:09 | disposition home or self-care (01) ==
LOC: ER 12:03
DX: G43.909 Migraine, unspecified, not intractable, without status migrainosus (principal); R11.0 Nausea; H53.8 Other visual disturbances; I10 Essential (primary) hypertension
CPT/HCPCS: 99284 ×2; 96374; 96375; J1885; J1170; J1200; J2765; J7030

== ENCOUNTER 2017-03-27 10:00 | Emergency (ER) | payer OTHER, MEDICAID ==
[2017-03-27] MEDS ORDERED: METOCLOPRAMIDE HCL 10 MG/2 ML VIAL IVP ONE (10:13)
[2017-03-27] MEDS ORDERED: KETOROLAC 30 MG/ML VIAL IVP ONE (10:13)
[2017-03-27] MEDS ORDERED: 0.9 % SODIUM CHLORIDE 1,000 ML BAG IV ONE (10:13)
[2017-03-27] MEDS ORDERED: DIPHENHYDRAMINE HCL IV 50 MG/ML VIAL IVP ONE (10:13)
--- NOTE | 2017-03-27 10:21 | Emergency Department Record ---
History of Present Illness - General Chief Complaint: Headache Migraine Stated Complaint: HEADACHE/VOMITING Time Seen by Provider: 03/27/17 10:10 Source: Patient Mode of Arrival: Ambulatory Limitations: No limitations - History of Present Illness Initial Comments: 36 yo female presents with a headache. She has a history of migraines for about 15-20 years. She follows with Dr Thornton. She tried her home medications without resolution of symptoms. She is nauseated and light sensitive. No fevers or trauma. Her symptoms are similar to her migraine pattern. No new or atypical features. No vision changes except light bothers her. Complaint: "Migraine" Onset/Timin -: Days(s) Onset Description: Gradual Location: Left Severity scale (1-10): 10 Quality: Aching, Similar to previous headaches Consistency: Constant Improves With: Nothing Worsens With: None Associated Symptoms: Vomiting Treatments Prior to Arrival: None - Related Data Home Medications Medication Instructions Recorded Confirmed Last Taken Insulin Aspart [Novolog] 100 unit SQ TID 03/04/14 03/27/17 1 Day Ago ~03/18/17 Dapagliflozin Propanediol [Farxiga] 10 mg PO DAILY 04/03/15 03/27/17 1 Day Ago ~03/18/17 Insulin Detemir [Levemir] 120 unit SQ ASDIR 04/03/15 03/27/17 1 Day Ago ~03/18/17 Albiglutide [Tanzeum] 50 mg SQ WEEKLY 03/17/17 03/27/17 1 Day Ago ~03/18/17 Previous Rx's Medication Instructions Recorded Metformin HCl [Glucophage] 1,000 mg PO BID #180 tablet 05/21/15 Allergies Allergy/AdvReac Type Severity Reaction Status Date / Time doxycycline Allergy Intermediate VOMITING Verified 03/19/17 12:13 fluoxetine HCl [From Prozac] Allergy Intermediate HYPERSENSIT Verified 03/19/17 12:13 IVITY Sulfa (Sulfonamide Allergy Intermediate HIVES Verified 03/19/17 12:13 Antibiotics) sulfamethoxazole Allergy Intermediate HIVES Verified 03/19/17 12:13 [From Bactrim] sumatriptan succinate Allergy Intermediate TACHYCARDIA Verified 03/19/17 12:13 [From Imitrex] trimethoprim [From Bactrim] Allergy Intermediate HIVES Verified 03/19/17 12:13 topiramate [From Topamax] AdvReac DIZZINESS Verified 03/19/17 12:13 SILK TAPE AdvReac Mild RASH Uncoded 03/19/17 12:13 Imitrex (oral only) AdvReac TACHYCARDIA Uncoded 03/19/17 12:13 Travel Screening - Travel/Exposure Within Last 30 Days Have you traveled within the last 30 days?: No Review of Systems Constitutional: Denies: Chills, Fever, Malaise, Weakness Eyes: Reports: Photophobia. Denies: Eye discharge, Eye pain, Vision change ENT: Denies: Congestion, Throat pain Respiratory: Denies: Cough, Dyspnea, Hemoptysis, Stridor, Wheezes Cardiovascular: Denies: Chest pain, Palpitations, Syncope Endocrine: Denies: Fatigue Gastrointestinal: Reports: Nausea. Denies: Abdominal pain, Diarrhea, Vomiting Genitourinary: Denies: Dysuria, Frequency, Urgency Musculoskeletal: Denies: Arthralgia, Back pain, Myalgia, Neck pain Skin: Denies: Bruising, Change in color, Rash Neurological: Reports: Headache. Denies: Confusion, Tingling, Weakness Psychiatric: Denies: Anxiety Hematological/Lymphatic: Denies: Anemia, Blood Clots, Easy bleeding, Easy bruising, Swollen glands Past Medical History - SOCIAL HISTORY Smoking Status: Never smoker Alcohol Use: None Drug Use: None - RESPIRATORY Hx Respiratory Disorders: Yes Hx Bronchitis: Yes (2015) Hx Sleep Apnea: Yes Hx of CPAP: No - CARDIOVASCULAR Hx Cardio Disorders: Yes Hx Edema: Yes Hx Hypertension: Yes Comment:: high cholesterol - NEURO Hx Neuro Disorders: Yes Hx Headaches: Yes Hx of Migraines: Yes Hx Neuropathy: Yes (BLE) Hx Seizures: Yes (high fever related as a child none since 7yrs old) - GI Hx GI Disorders: Yes Hx Abdominal Pain: Yes Hx Reflux: Yes Hx Irritable Bowel: Yes - Hx Genitourinary Disorders: Yes Hx UTI: Yes Comment:: PCOS, endometriosis in abd cavity - ENDOCRINE Hx Endocrine Disorders: Yes Hx Diabetes: Yes Hx Thyroid Disease: No - MUSCULOSKELETAL Hx Musculoskeletal Disorders: Yes Comment:: Bulging discs - PSYCH Hx Psych Problems: Yes Hx Anxiety: Yes (panic attacks) Hx Behavior Problems: Yes (bipolar) - HEMATOLOGY/ONCOLOGY Hx Hematology/Oncology Disorders: No Family Medical History Any Significant Family History?: Yes Hx Cancer: Father, Mother, Grandparents *Cancer Comment: lung, colon, prostate, melanoma Hx Diabetes: Father, Mother, Grandparents Hx Heart Disease: Father, Mother Physical Exam - General General Appearance: Alert, Oriented x3, Cooperative, No acute distress, Other ( Well appearing, no acute distress) Limitations: No limitations - Head Head exam: Atraumatic, Normocephalic, Normal inspection - Eye Eye exam: Normal appearance, PERRL. negative: Conjunctival injection, Periorbital swelling - ENT ENT exam: Normal exam, Mucous membranes moist, Normal external ear exam, Normal orophraynx, TM's normal bilaterally Ear exam: Normal external inspection. negative: External canal tenderness Nasal Exam: Normal inspection. negative: Discharge, Sinus tenderness Mouth exam: Normal external inspection, Tongue normal Teeth exam: Normal inspection. negative: Dental caries Throat exam: Normal inspection. negative: Tonsillar erythema, Tonsillar exudate - Neck Neck exam: Normal inspection, Full ROM. negative: Tenderness - Respiratory Respiratory exam: Normal lung sounds bilaterally. negative: Respiratory distress - Cardiovascular Cardiovascular Exam: Regular rate, Normal rhythm, Normal heart sounds - GI/Abdominal GI/Abdominal exam: Soft. negative: Tenderness - Rectal Rectal exam: Deferred - exam: Deferred - Extremities Extremities exam: Normal inspection, Full ROM, Normal capillary refill. negative: Pedal edema, Tenderness - Back Back exam: Reports: Normal inspection, Full ROM. Denies: Muscle spasm, Rash noted, Tenderness - Neurological Neurological exam: Alert, CN II-XII intact, Normal gait, Oriented X3, Reflexes normal. negative: Altered, Motor sensory deficit - Psychiatric Psychiatric exam: Normal affect, Normal mood - Skin Skin exam: Dry, Intact, Normal color, Warm Course Vital Signs 03/27/17 10:07 Temperature 98.7 F Pulse Rate 94 H Respiratory 18 Rate Blood Pressure 136/74 Pulse Ox 97 - Reevaluation(s) Reevaluation #1: 03/27/17 12:09 The patient is improved and ready for DC home She will call her neurologist office this week Disposition Disposition: Discharge Clinical Impression: Migraine Disposition: Home, Self-Care Condition: (1) Good Instructions: Migraine Headache (ED) Additional Instructions: Call your doctor and your neurologist this week for close follow up Rest and stay well hydrated Return if any worsening or uncontrolled symptoms Forms: Patient Portal Access Time of Disposition: 12:09
== END 2017-03-27 12:37 | disposition home or self-care (01) ==
LOC: ER 10:00
DX: G43.909 Migraine, unspecified, not intractable, without status migrainosus (principal); R11.2 Nausea with vomiting, unspecified; H53.149 Visual discomfort, unspecified
CPT/HCPCS: 99284 ×2; 96374; 96375; J1885; J1200; J2765; J7030

== ENCOUNTER 2017-04-10 08:19 | Emergency (ER) | payer OTHER, MEDICAID ==
[2017-04-10] MEDS ORDERED: 0.9 % SODIUM CHLORIDE 1000ML 1,000 ML IV ONE (08:44)
[2017-04-10] MEDS ORDERED: METOCLOPRAMIDE HCL 10 MG/2 ML VIAL IVP ONE (08:45)
[2017-04-10] MEDS ORDERED: KETOROLAC 30 MG/ML VIAL IVP ONE (08:45)
[2017-04-10] MEDS ORDERED: DIPHENHYDRAMINE HCL IV 50 MG/ML VIAL IVP ONE (08:45)
[2017-04-10] MEDS ORDERED: HYDROMORPHONE HCL 1 MG/ML CPJ IVP ONE (08:45)
--- NOTE | 2017-04-10 08:52 | Emergency Department Record ---
History of Present Illness - General Chief Complaint: Headache Migraine Stated Complaint: MIGRAINE Time Seen by Provider: 04/10/17 08:38 Source: Patient, RN Mode of Arrival: Ambulatory - History of Present Illness Initial Comments: her typical headache and she is going to go to a different neurologist and no nuchal signs and no vomiting and she has nausea. She had toradol and reglan PO 5 hours ago and she took norco yesterday. Aura distorted vision eyes a dancing around MD Complaint: "Migraine" Onset/Timin -: Days(s) Onset Description: Sudden, Awoke with symptoms Location: Frontal Severity scale (1-10): 9 Quality: Pulsatile, Throbbing, Similar to previous headaches Consistency: Constant Improves With: Nothing Worsens With: Light, Noise Associated Symptoms: Photophobia Treatments Prior to Arrival: Migraine medication - Related Data Home Medications Medication Instructions Recorded Confirmed Last Taken Insulin Aspart [Novolog] 100 unit SQ TID 03/04/14 04/10/17 04/10/17 Dapagliflozin Propanediol [Farxiga] 10 mg PO DAILY 04/03/15 04/10/17 04/10/17 Insulin Detemir [Levemir] 120 unit SQ ASDIR 04/03/15 04/10/17 04/10/17 Albiglutide [Tanzeum] 50 mg SQ WEEKLY 03/17/17 04/10/17 04/10/17 Previous Rx's Medication Instructions Recorded Metformin HCl [Glucophage] 1,000 mg PO BID #180 tablet 05/21/15 Allergies Allergy/AdvReac Type Severity Reaction Status Date / Time doxycycline Allergy Intermediate VOMITING Verified 04/10/17 08:28 fluoxetine HCl [From Prozac] Allergy Intermediate HYPERSENSIT Verified 04/10/17 08:28 IVITY Sulfa (Sulfonamide Allergy Intermediate HIVES Verified 04/10/17 08:28 Antibiotics) sulfamethoxazole Allergy Intermediate HIVES Verified 04/10/17 08:28 [From Bactrim] sumatriptan succinate Allergy Intermediate TACHYCARDIA Verified 04/10/17 08:28 [From Imitrex] trimethoprim [From Bactrim] Allergy Intermediate HIVES Verified 04/10/17 08:28 topiramate [From Topamax] AdvReac DIZZINESS Verified 04/10/17 08:28 SILK TAPE AdvReac Mild RASH Uncoded 03/19/17 12:13 Imitrex (oral only) AdvReac TACHYCARDIA Uncoded 03/19/17 12:13 Travel Screening - Travel/Exposure Within Last 30 Days Have you traveled within the last 30 days?: No - Travel/Exposure Within Last Year Have you traveled outside the [place] in the last year?: No - Additonal Travel Details Have you been exposed to anyone with a communicable illness?: No - Travel Symptoms Symptom Screening: None Review of Systems Reviewed: No additional complaints except as noted below Constitutional: Reports: As per HPI. Denies: Chills, Fever, Malaise, Night sweats, Weakness, Weight change Eyes: Reports: As per HPI. Denies: Eye discharge, Eye pain, Photophobia, Vision change ENT: Reports: As per HPI. Denies: Congestion, Dental pain, Ear pain, Epistaxis , Hearing loss, Throat pain Respiratory: Reports: As per HPI. Denies: Cough, Dyspnea, Hemoptysis, Stridor, Wheezes Cardiovascular: Reports: As per HPI. Denies: Arrhythmia, Chest pain, Dyspnea on exertion, Edema, Murmurs, Orthopnea, Palpitations, Paroxysmal nocturnal dyspnea, Rheumatic Fever, Syncope Endocrine: Reports: As per HPI. Denies: Fatigue, Heat or cold intolerance, Polydipsia, Polyuria Gastrointestinal: Reports: As per HPI, Nausea. Denies: Abdominal pain, Constipation, Diarrhea, Hematemesis, Hematochezia, Melena, Vomiting Genitourinary: Reports: As per HPI. Denies: Abnormal menses, Discharge, Dyspareunia, Dysuria, Frequency, Hematuria, Incontinence, Retention, Urgency Musculoskeletal: Reports: As per HPI. Denies: Arthralgia, Back pain, Gout, Joint swelling, Myalgia, Neck pain Skin: Reports: As per HPI. Denies: Bruising, Change in color, Change in hair/ nails, Lesions, Pruritus, Rash Neurological: Reports: As per HPI, Headache. Denies: Abnormal gait, Confusion, Numbness, Paresthesias, Seizure, Tingling, Tremors, Vertigo, Weakness Psychiatric: Reports: As per HPI. Denies: Anxiety, Auditory hallucinations, Depression, Homicidal thoughts, Suicidal thoughts, Visual hallucinations Hematological/Lymphatic: Reports: As per HPI. Denies: Anemia, Blood Clots, Easy bleeding, Easy bruising, Swollen glands Past Medical History - SOCIAL HISTORY Smoking Status: Never smoker Alcohol Use: None Drug Use Detail:: Marijuana - RESPIRATORY Hx Respiratory Disorders: Yes Hx Bronchitis: Yes (2015) Hx Sleep Apnea: Yes Hx of CPAP: No - CARDIOVASCULAR Hx Cardio Disorders: Yes Hx Edema: Yes Hx Hypertension: Yes Comment:: high cholesterol - NEURO Hx Neuro Disorders: Yes Hx Headaches: Yes Hx of Migraines: Yes Hx Neuropathy: Yes (BLE) Hx Seizures: Yes (high fever related as a child none since 7yrs old) - GI Hx GI Disorders: Yes Hx Abdominal Pain: Yes Hx Reflux: Yes Hx Irritable Bowel: Yes - Hx Genitourinary Disorders: Yes Hx UTI: Yes Comment:: PCOS, endometriosis in abd cavity - ENDOCRINE Hx Endocrine Disorders: Yes Hx Diabetes: Yes Hx Thyroid Disease: No - MUSCULOSKELETAL Hx Musculoskeletal Disorders: Yes Comment:: Bulging discs - PSYCH Hx Psych Problems: Yes Hx Anxiety: Yes (panic attacks) Hx Behavior Problems: Yes (bipolar) - HEMATOLOGY/ONCOLOGY Hx Hematology/Oncology Disorders: No Family Medical History Any Significant Family History?: Yes Hx Cancer: Father, Mother, Grandparents *Cancer Comment: lung, colon, prostate, melanoma Hx Diabetes: Father, Mother, Grandparents Hx Heart Disease: Father, Mother Physical Exam - General General Appearance: Alert, Oriented x3, Cooperative, No acute distress - Head Head exam: Normal inspection - Eye Eye exam: Normal appearance, PERRL Pupils: Normal accommodation - ENT ENT exam: Normal exam, Mucous membranes moist, Normal external ear exam, Normal orophraynx, TM's normal bilaterally Ear exam: Normal external inspection. negative: External canal tenderness Nasal Exam: Normal inspection. negative: Discharge, Sinus tenderness Mouth exam: Normal external inspection, Tongue normal Teeth exam: Normal inspection. negative: Dental caries Throat exam: Normal inspection. negative: Tonsillar erythema, Tonsillar exudate - Neck Neck exam: Normal inspection, Full ROM. negative: Tenderness - Respiratory Respiratory exam: Normal lung sounds bilaterally. negative: Respiratory distress - Cardiovascular Cardiovascular Exam: Regular rate, Normal rhythm, Normal heart sounds - GI/Abdominal GI/Abdominal exam: Soft, Normal bowel sounds. negative: Tenderness - Rectal Rectal exam: Deferred - exam: Deferred - Extremities Extremities exam: Normal inspection, Full ROM, Normal capillary refill. negative: Tenderness - Back Back exam: Reports: Normal inspection, Full ROM. Denies: Muscle spasm, Rash noted, Tenderness - Neurological Neurological exam: Alert, Normal gait, Oriented X3, Reflexes normal - Psychiatric Psychiatric exam: Normal affect, Normal mood - Skin Skin exam: Dry, Intact, Normal color, Warm Course Vital Signs 04/10/17 08:28 Temperature 98.6 F Pulse Rate [ 99 H Pulse Ox Probe] Respiratory 22 Rate Blood Pressure 133/70 [Left Arm] Pulse Ox 98 - Reevaluation(s) Reevaluation #1: feeling better 04/10/17 09:55 Disposition Clinical Impression: Migraine Qualifiers: Migraine type: with aura Status migrainosus presence: without status migrainosus Intractability: not intractable Qualified Code(s): G43.109 - Migraine with aura, not intractable, without status migrainosus Disposition: Home, Self-Care Condition: (1) Good Instructions: Migraine Headache (ED) Additional Instructions: follow up with Dr. Flynn Forms: Patient Portal Access Time of Disposition: 09:56
== END 2017-04-10 10:11 | disposition home or self-care (01) ==
LOC: ER 08:19
DX: G43.109 Migraine with aura, not intractable, without status migrainosus (principal); R11.0 Nausea; H53.149 Visual discomfort, unspecified
CPT/HCPCS: 99284 ×2; 96374; 96375; J1885; J1170; J1200; J2765

== ENCOUNTER 2017-04-28 13:48 | Emergency (ER) | payer OTHER, MEDICARE, MEDICAID ==
[2017-04-28] MEDS ORDERED: KETOROLAC 30 MG/ML VIAL IVP ONE (14:22)
[2017-04-28] MEDS ORDERED: DIPHENHYDRAMINE HCL IV 50 MG/ML VIAL IVP ONE (14:22)
[2017-04-28] MEDS ORDERED: METOCLOPRAMIDE HCL 10 MG/2 ML VIAL IVP ONE (14:22)
--- NOTE | 2017-04-28 14:27 | Emergency Department Record ---
History of Present Illness - General Chief Complaint: Headache Migraine Stated Complaint: BISHOP Time Seen by Provider: 04/28/17 14:17 Source: Patient Mode of Arrival: Ambulatory Limitations: No limitations - History of Present Illness Initial Comments: 37 yo female returns to ED for evaluation of headache symptoms. Patient reports that her headache symptoms are similar to previous, denies fevers, chills, or neck stiffness symptoms. Patient reports "throbbing" in the head and nausea symptoms. Patient reports that she follows-up with a neurologist through [facility] as well as Dr. Thornton for her chronic headaches. Complaint: Headache Onset/Timin -: Days(s) Onset Description: Gradual Location: Frontal, Retro-orbital Severity: Moderate Severity scale (1-10): 9 Quality: Throbbing, Similar to previous headaches Consistency: Constant Improves With: Nothing Worsens With: Light, Noise Associated Symptoms: Photophobia, Sensitivity to sound Treatment Prior to Arrival Comment:: Jose G ED - Related Data Home Medications Medication Instructions Recorded Confirmed Last Taken Insulin Aspart [Novolog] 100 unit SQ TID 03/04/14 04/28/17 04/28/17 Dapagliflozin Propanediol [Farxiga] 10 mg PO DAILY 04/03/15 04/28/17 04/28/17 Insulin Detemir [Levemir] 120 unit SQ ASDIR 04/03/15 04/28/17 04/28/17 Albiglutide [Tanzeum] 50 mg SQ WEEKLY 03/17/17 04/28/17 04/28/17 Previous Rx's Medication Instructions Recorded Metformin HCl [Glucophage] 1,000 mg PO BID #180 tablet 05/21/15 Allergies Allergy/AdvReac Type Severity Reaction Status Date / Time cephalexin monohydrate Allergy Intermediate throat Verified 04/28/17 14:01 [From Keflex] swelling doxycycline Allergy Intermediate VOMITING Verified 04/28/17 14:01 fluoxetine HCl [From Prozac] Allergy Intermediate HYPERSENSIT Verified 04/28/17 14:01 IVITY Sulfa (Sulfonamide Allergy Intermediate HIVES Verified 04/28/17 14:01 Antibiotics) sulfamethoxazole Allergy Intermediate HIVES Verified 04/28/17 14:01 [From Bactrim] sumatriptan succinate Allergy Intermediate TACHYCARDIA Verified 04/28/17 14:01 [From Imitrex] trimethoprim [From Bactrim] Allergy Intermediate HIVES Verified 04/28/17 14:01 topiramate [From Topamax] AdvReac DIZZINESS Verified 04/28/17 14:01 SILK TAPE AdvReac Mild RASH Uncoded 03/19/17 12:13 Imitrex (oral only) AdvReac TACHYCARDIA Uncoded 03/19/17 12:13 Travel Screening - Travel/Exposure Within Last 30 Days Have you traveled within the last 30 days?: No - Travel/Exposure Within Last Year Have you traveled outside the [place] in the last year?: No - Additonal Travel Details Have you been exposed to anyone with a communicable illness?: No - Travel Symptoms Symptom Screening: None Review of Systems Constitutional: Denies: Chills, Fever, Malaise, Night sweats Eyes: Reports: Photophobia. Denies: Eye discharge, Eye pain ENT: Denies: Congestion, Ear pain, Epistaxis Respiratory: Denies: Cough, Dyspnea Cardiovascular: Denies: Chest pain, Dyspnea on exertion Endocrine: Denies: Fatigue, Heat or cold intolerance Gastrointestinal: Denies: Abdominal pain, Vomiting Genitourinary: Denies: Incontinence, Retention Musculoskeletal: Denies: Arthralgia, Back pain Skin: Denies: Bruising, Change in color Neurological: Reports: Headache. Denies: Confusion, Seizure Psychiatric: Denies: Anxiety Hematological/Lymphatic: Denies: Anemia, Blood Clots Past Medical History - SOCIAL HISTORY Smoking Status: Never smoker Alcohol Use: None Drug Use: None - RESPIRATORY Hx Respiratory Disorders: Yes Hx Bronchitis: Yes (2015) Hx Sleep Apnea: Yes Hx of CPAP: No - CARDIOVASCULAR Hx Cardio Disorders: Yes Hx Edema: Yes Comment:: high cholesterol - NEURO Hx Neuro Disorders: Yes Hx Headaches: Yes Hx of Migraines: Yes Hx Neuropathy: Yes (BLE) Hx Seizures: Yes (high fever related as a child none since 7yrs old) - GI Hx GI Disorders: Yes Hx Abdominal Pain: Yes - Hx Genitourinary Disorders: Yes Comment:: PCOS, endometriosis in abd cavity - ENDOCRINE Hx Endocrine Disorders: Yes Hx Diabetes: Yes Hx Thyroid Disease: No - MUSCULOSKELETAL Hx Musculoskeletal Disorders: Yes Hx Gout: Yes Comment:: Bulging discs - PSYCH Hx Psych Problems: Yes Hx Anxiety: Yes (panic attacks) Hx Behavior Problems: Yes (bipolar) - HEMATOLOGY/ONCOLOGY Hx Hematology/Oncology Disorders: No Family Medical History Any Significant Family History?: Yes Hx Cancer: Father, Mother, Grandparents *Cancer Comment: lung, colon, prostate, melanoma Hx Diabetes: Father, Mother, Grandparents Hx Heart Disease: Father, Mother Physical Exam - General General Appearance: Alert, Oriented x3, Cooperative, Mild distress Limitations: No limitations - Head Head exam: Atraumatic, Normocephalic, Normal inspection Head exam detail: negative: Abrasion, Contusion, Marcelino's sign, General tenderness, Hematoma, Laceration - Eye Eye exam: Normal appearance. negative: Conjunctival injection, Periorbital swelling, Periorbital tenderness, Scleral icterus - ENT Ear exam: negative: Auricular hematoma, Auricular trauma Nasal Exam: negative: Active bleeding, Discharge, Dried blood Mouth exam: negative: Drooling, Laceration, Muffled voice, Tongue elevation - Neck Neck exam: Normal inspection. negative: Meningismus, Tenderness - Respiratory Respiratory exam: Normal lung sounds bilaterally. negative: Rales, Respiratory distress, Rhonchi, Stridor - Cardiovascular Cardiovascular Exam: Regular rate, Normal rhythm, Normal heart sounds - GI/Abdominal GI/Abdominal exam: Soft. negative: Rebound, Rigid, Tenderness - Rectal Rectal exam: Deferred - exam: Deferred - Extremities Extremities exam: negative: Pedal edema, Tenderness - Back Back exam: Denies: CVA tenderness (R), CVA tenderness (L) - Neurological Neurological exam: Alert, Normal gait, Oriented X3 - Psychiatric Psychiatric exam: Normal affect, Normal mood - Skin Skin exam: Normal color. negative: Abrasion Type of lesion: negative: abrasion Course Vital Signs 04/28/17 14:15 Temperature 98.9 F Pulse Rate 110 H Respiratory 20 Rate Blood Pressure 116/67 Pulse Ox 97 - Reevaluation(s) Reevaluation #1: 04/28/17 14:32 Records reviewed from patient's visit last night to [facility], patient was given Reglan, Benadryl, Toradol, and IM Thorazine for her headache symptoms. Will reassess the patient's symptoms in 45-60 minutes. Reevaluation #2: 04/28/17 16:45 Patient reassessed, reports that she is feeling much better, is drinking apple juice, and reports that she is ready to go home at this time. Patient appears stable for discharge at this time. Disposition Disposition: Discharge Clinical Impression: Headache Qualifiers: Headache type: unspecified Headache chronicity pattern: acute headache Intractability: not intractable Qualified Code(s): R51 - Headache Disposition: Home, Self-Care Condition: (2) Stable Instructions: Acute Headache (ED) Additional Instructions: Return to ED if your symptoms worsen or if you have any concerns. Follow-up with Dr. Thornton in 3-5 days as directed. Forms: Patient Portal Access Time of Disposition: 16:45
[2017-04-28] MEDS ORDERED: MAGNESIUM SULFATE 16 MEQ in 0.9 % SODIUM CHLORIDE 100ML 100 ML IV ONE (14:40)
== END 2017-04-28 17:05 | disposition home or self-care (01) ==
LOC: ER 13:48
DX: R51 Headache (principal); H53.149 Visual discomfort, unspecified
CPT/HCPCS: 99284 ×2; 96374; 96375; J1885; J1200; J2765

== ENCOUNTER → 2017-04-29 | Day surgery (SDC) | payer OTHER, MEDICARE, MEDICAID ==
[~2017-04-29] MED LIST: FENTANYL PF 100MCG/2ML VIAL IV ONE; LIDOCAINE 2% MDV (20MG/ML) 20ML VIAL IV ONE; PROPOFOL 10 MG/ML VIAL IV ONE
--- NOTE | 2017-05-02 15:10 | Operative Note ---
DATE OF SURGERY: 04/29/2017 SURGEON: Cara Jean Baptiste MD OPERATION: ESOPHAGOGASTRODUODENOSCOPY. INDICATIONS: This is a 37-year-old female with a history of abdominal pain and nausea and vomiting who presented for esophagogastroduodenoscopy. POSTOPERATIVE DIAGNOSES: 1. Normal esophagus. 2. Diffuse erosive gastritis. 3. Normal duodenum. ANESTHESIA: Sedation is per Anesthesia. Pulse oximetry was monitored throughout the procedure to maintain O2 saturation of 90% or greater. Supplemental oxygen was administered via nasal cannula. Cardiac and vital signs were monitored throughout the duration of the procedure, and they were stable. The procedure of esophagogastroduodenoscopy and risks and benefits of the procedure, including the risk of bleeding and perforation, among others, were explained to the patient who voiced understanding and desired to have the procedure done. Physical examination was performed, and the patient was found stable for sedation. PROCEDURE: The patient was placed in the left lateral position. Sedation was initiated. A plastic bite block was inserted into the oral cavity. The Olympus [id number] gastroscope was introduced into the oral cavity and advanced to the proximal esophagus without difficulty. The esophageal mucosa was carefully examined upon introduction of the gastroscope. The proximal, mid, and distal esophageal mucosa appeared normal. The gastroscope was then advanced into the stomach, and surveillance of the stomach revealed normal gastric fundus but diffuse erosions in the gastric body and antrum but no ulcers were noted. The gastroscope was then advanced to the descending duodenum without difficulty. The duodenal bulb and descending duodenum appeared normal. The gastroscope was then withdrawn into the stomach and retroflexion was performed. No other lesions were noted. The gastroscope was then straightened and withdrawn while carefully examining the gastric and esophageal mucosa. No other lesions noted. Multiple duodenal and gastric biopsies were obtained. She remained with stable vital signs and was transferred to the recovery room. RECOMMENDATIONS: The patient should remain on proton pump inhibitors. I would be happy to see her back in the office as needed. Thank you for allowing me to participate in the care of your patient. Cara Jean Baptiste MD CC: Dr. Morales GUSTAFSON
== END | disposition home or self-care (01) ==
LOC: HOP 12:05
PROVIDERS: ATTEND Internal Medicine Gastroenterology
DX: R10.9 Unspecified abdominal pain (principal); R11.2 Nausea with vomiting, unspecified; K29.60 Other gastritis without bleeding; E11.9 Type 2 diabetes mellitus without complications; Z79.84 Long term (current) use of oral hypoglycemic drugs; Z79.4 Long term (current) use of insulin; G62.9 Polyneuropathy, unspecified; E78.00 Pure hypercholesterolemia, unspecified; F31.89 Other bipolar disorder
CPT/HCPCS: 43239; 00740; J3010

== ENCOUNTER 2017-05-06 13:15 | Emergency (ER) | payer OTHER, MEDICARE, MEDICAID ==
--- NOTE | 2017-05-06 13:34 | Emergency Department Record ---
History of Present Illness - General Chief complaint: Extremity Problem Stated complaint: RT LEG PAIN Time Seen by Provider: 05/06/17 13:16 Source: Patient Mode of Arrival: Ambulatory Limitations: No limitations - History of Present Illness Initial comments: 37 yo presents with right second toe pain for several days. She developed a blister initially. She called Dr Jacobsen her livestock inspector. She states she was advised to rupture the blister. The toes has been mildly swollen and tender. No pus. She additionally has developed an ache in her upper medial thigh and was concerned about DVT. No history of DVT. No calf pain. No trauma or immobilization. MD Complaint: Extremity pain, Joint pain -: Days(s) Location: Right -: Yes Arthralgia Radiation: Distal Quality: Aching Consistency: Constant Improves with: Nothing Worsens with: Palpation, Walking Associated Symptoms: Arthralgias - Related Data Home Medications Medication Instructions Recorded Confirmed Last Taken Insulin Aspart [Novolog] 100 unit SQ TID 03/04/14 05/06/17 05/06/17 Dapagliflozin Propanediol [Farxiga] 10 mg PO DAILY 04/03/15 05/06/17 05/06/17 Insulin Detemir [Levemir] 120 unit SQ ASDIR 04/03/15 05/06/17 05/06/17 Albiglutide [Tanzeum] 50 mg SQ WEEKLY 03/17/17 04/28/17 05/06/17 Previous Rx's Medication Instructions Recorded Metformin HCl [Glucophage] 1,000 mg PO BID #180 tablet 05/21/15 Clindamycin HCl [Cleocin HCl] 300 mg PO QID #28 capsule 05/06/17 Mupirocin [Bactroban] 1 apply TP BID #1 tube 05/06/17 Allergies Allergy/AdvReac Type Severity Reaction Status Date / Time cephalexin monohydrate Allergy Intermediate throat Verified 05/06/17 13:16 [From Keflex] swelling doxycycline Allergy Intermediate VOMITING Verified 05/06/17 13:16 fluoxetine HCl [From Prozac] Allergy Intermediate HYPERSENSIT Verified 05/06/17 13:16 IVITY Sulfa (Sulfonamide Allergy Intermediate HIVES Verified 05/06/17 13:16 Antibiotics) sulfamethoxazole Allergy Intermediate HIVES Verified 05/06/17 13:16 [From Bactrim] sumatriptan succinate Allergy Intermediate TACHYCARDIA Verified 05/06/17 13:16 [From Imitrex] trimethoprim [From Bactrim] Allergy Intermediate HIVES Verified 05/06/17 13:16 topiramate [From Topamax] AdvReac DIZZINESS Verified 05/06/17 13:16 SILK TAPE AdvReac Mild RASH Uncoded 03/19/17 12:13 Imitrex (oral only) AdvReac TACHYCARDIA Uncoded 03/19/17 12:13 Review of Systems Constitutional: Denies: Chills, Fever, Weakness Eyes: Denies: Eye discharge ENT: Denies: Congestion, Throat pain Respiratory: Denies: Cough Cardiovascular: Denies: Chest pain Endocrine: Denies: Fatigue, Polydipsia, Polyuria Gastrointestinal: Denies: Abdominal pain, Diarrhea, Nausea, Vomiting Genitourinary: Denies: Dysuria Musculoskeletal: Reports: As per HPI, Arthralgia, Joint swelling Skin: Reports: As per HPI, Change in color. Denies: Bruising Neurological: Denies: Confusion, Headache Psychiatric: Denies: Anxiety Hematological/Lymphatic: Denies: Blood Clots, Easy bleeding, Easy bruising, Swollen glands Past Medical History - SOCIAL HISTORY Smoking Status: Never smoker Drug Use: None - RESPIRATORY Hx Respiratory Disorders: Yes Hx Bronchitis: Yes (2015) Hx Sleep Apnea: Yes Hx of CPAP: No - CARDIOVASCULAR Hx Cardio Disorders: Yes Hx Edema: Yes Comment:: high cholesterol - NEURO Hx Neuro Disorders: Yes Hx Headaches: Yes Hx of Migraines: Yes Hx Neuropathy: Yes (BLE) Hx Seizures: Yes (high fever related as a child none since 7yrs old) - GI Hx GI Disorders: Yes Hx Abdominal Pain: Yes - Hx Genitourinary Disorders: Yes Comment:: PCOS, endometriosis in abd cavity - ENDOCRINE Hx Endocrine Disorders: Yes Hx Diabetes: Yes Hx Thyroid Disease: No - MUSCULOSKELETAL Hx Musculoskeletal Disorders: Yes Hx Gout: Yes Comment:: Bulging discs - PSYCH Hx Psych Problems: Yes Hx Anxiety: Yes (panic attacks) Hx Behavior Problems: Yes (bipolar) - HEMATOLOGY/ONCOLOGY Hx Hematology/Oncology Disorders: No Family Medical History Hx Cancer: Father, Mother, Grandparents *Cancer Comment: lung, colon, prostate, melanoma Hx Diabetes: Father, Mother, Grandparents Hx Heart Disease: Father, Mother Physical Exam - General General Appearance: Alert, Oriented x3, Cooperative, No acute distress Limitations: No limitations - Head Head exam: Normal inspection - Eye Eye exam: Normal appearance - ENT ENT exam: Normal exam Ear exam: Normal external inspection Nasal Exam: Normal inspection - Neck Neck exam: Normal inspection - Respiratory Respiratory exam: Normal lung sounds bilaterally. negative: Respiratory distress - Cardiovascular Cardiovascular Exam: Regular rate, Normal rhythm, Normal heart sounds - GI/Abdominal GI/Abdominal exam: Soft. negative: Tenderness - Rectal Rectal exam: Deferred - exam: Deferred - Extremities Extremities exam: Full ROM, Joint swelling, Normal capillary refill, Tenderness (medial thigh). negative: Normal inspection, Calf tenderness, Pedal edema Image of Feet: 1 - ulcered appearing area left from the debrided blsiter, mild swelling, mild erythema, no pus - Neurological Neurological exam: Alert, Normal gait, Oriented X3, Reflexes normal - Psychiatric Psychiatric exam: Normal affect, Normal mood - Skin Skin exam: Erythema (mild of the toe) Course - Reevaluation(s) Reevaluation #1: XR and Venous doppler ordered 05/06/17 13:37 Reevaluation #2: The XR was reviewed No acute lissa changes noted The prelim venous doppler report was reviewed. No DVT. Limited below the knee. No above the knee where her pain is located. She will be advised to see her PCP for a recheck if symptoms continue 05/06/17 14:32 Disposition Disposition: Discharge Clinical Impression: Leg pain, right, Cellulitis of toe, right Disposition: Home, Self-Care Condition: (1) Good Instructions: Cellulitis (ED) Additional Instructions: Call your doctor and livestock inspector today to schedule rechecks of your symptoms first of the week Return if worse, fever, pus or concerns Use the Post-OP shoe and avoid shoes with a cover to eliminate rubbing of the toes Take the Clindamycin 4 times daily Apply the Bactroban twice daily to the toe Prescriptions: Clindamycin HCl [Cleocin HCl] 300 mg PO QID #28 capsule Mupirocin [Bactroban] 1 apply TP BID #1 tube Forms: Patient Portal Access Time of Disposition: 14:39 Quality - Quality Measures Quality Measures: N/A - Blood Pressure Screening View Details: Yes Blood Pressure Classification: Normal BP Reading Systolic Measurement: 115 Diastolic Measurement: 76 Screening for High Blood Pressure: < Normal BP, F/U Not Required > [G8783] Normal BP Follow-up Interventions: No follow-up required
[2017-05-06] MEDS: CLINDAMYCIN 150 MG CAP PO ONE (13:55)
[2017-05-06] MEDS: MUPIROCIN OINT 22 GM TUBE TOP STA (14:52)
--- NOTE | 2017-05-06 14:55 | RADIOLOGY REPORT ---
EXAM: RIGHT SECOND TOE HISTORY: PAIN. TECHNIQUE: Three views of the right second toe were performed. FINDINGS: There is no evidence of fracture or dislocation. No lytic or blastic lesion. IMPRESSION: NEGATIVE RIGHT SECOND TOE EXAMINATION. JOB NUMBER: [id number] [facility]
--- NOTE | 2017-05-06 14:58 | US VENOUS DOPPLER REPORT ---
EXAM: ULTRASOUND OF THE DEEP VENOUS SYSTEM OF THE RIGHT LOWER EXTREMITY HISTORY: RIGHT LOWER EXTREMITY SOFT TISSUE SWELLING. TECHNIQUE: Sonographic evaluation of the deep venous system of the right lower extremity was performed with the addition of Doppler, compression, and augmentation. FINDINGS: There is no evidence of deep vein thrombosis identified from the right common femoral vein to the popliteal vein. The posterior tibial, anterior tibial, and peroneal veins are not visualized on this examination. IMPRESSION: NO SONOGRAPHIC EVIDENCE OF DEEP VEIN THROMBOSIS IDENTIFIED IN THE PROXIMAL RIGHT LOWER EXTREMITY. [facility]: [id number] [facility]
[2017-05-06] MEDS ORDERED: MUPIROCIN OINT 22 GM TUBE TOP SCH (22:00)
== END 2017-05-06 15:08 | disposition home or self-care (01) ==
LOC: ER 13:15
DX: L03.031 Cellulitis of right toe (principal); M79.651 Pain in right thigh
CPT/HCPCS: 73660; 99283; 99284

== ENCOUNTER 2017-05-16 19:47 | Emergency (ER) | payer OTHER, MEDICARE, MEDICAID ==
--- NOTE | 2017-05-16 20:10 | Emergency Department Record ---
History of Present Illness - General Chief Complaint: Headache Migraine Stated Complaint: BISHOP Time Seen by Provider: 05/16/17 20:01 Source: Patient Mode of Arrival: Ambulatory - History of Present Illness Initial Comments: The patient states that she has had a typical migraine headache over the past week associated with photophobia, nausea, vomiting 3 times. She has taken toradol pils, reglan, norco, and her other meds without relief. She is under lots of stress as a family member has stage 3 cancer. She denies f,c, stiff neck URI symptoms, rashes, st, cough. MD Complaint: "Migraine" Onset/Timin -: Days(s) Location: Frontal Severity scale (1-10): 10 Quality: Pulsatile Consistency: Constant, Getting worse Worsens With: Light, Noise Associated Symptoms: Photophobia Treatments Prior to Arrival: Antiemetic - Related Data Home Medications Medication Instructions Recorded Confirmed Last Taken Insulin Aspart [Novolog] 100 unit SQ TID 03/04/14 05/16/17 05/06/17 Dapagliflozin Propanediol [Farxiga] 10 mg PO DAILY 04/03/15 05/16/17 05/06/17 Insulin Detemir [Levemir] 120 unit SQ ASDIR 04/03/15 05/16/17 05/06/17 Albiglutide [Tanzeum] 50 mg SQ WEEKLY 03/17/17 05/16/17 05/06/17 Diphenhydramine HCl [Benadryl] 50 mg PO Q6H PRN 05/16/17 05/16/17 Unknown Ketorolac Tromethamine 10 mg PO TID PRN 05/16/17 05/16/17 05/16/17 10:00 Metoclopramide HCl [Reglan] 10 mg PO TID PRN 05/16/17 05/16/17 05/16/17 10:00 Previous Rx's Medication Instructions Recorded Metformin HCl [Glucophage] 1,000 mg PO BID #180 tablet 05/21/15 Mupirocin [Bactroban] 1 apply TP BID #1 tube 05/06/17 Allergies Allergy/AdvReac Type Severity Reaction Status Date / Time cephalexin monohydrate Allergy Intermediate throat Verified 05/06/17 13:16 [From Keflex] swelling doxycycline Allergy Intermediate VOMITING Verified 05/06/17 13:16 fluoxetine HCl [From Prozac] Allergy Intermediate HYPERSENSIT Verified 05/06/17 13:16 IVITY Sulfa (Sulfonamide Allergy Intermediate HIVES Verified 05/06/17 13:16 Antibiotics) sulfamethoxazole Allergy Intermediate HIVES Verified 05/06/17 13:16 [From Bactrim] sumatriptan succinate Allergy Intermediate TACHYCARDIA Verified 05/06/17 13:16 [From Imitrex] trimethoprim [From Bactrim] Allergy Intermediate HIVES Verified 05/06/17 13:16 topiramate [From Topamax] AdvReac DIZZINESS Verified 05/06/17 13:16 SILK TAPE AdvReac Mild RASH Uncoded 03/19/17 12:13 Imitrex (oral only) AdvReac TACHYCARDIA Uncoded 03/19/17 12:13 Travel Screening - Travel/Exposure Within Last 30 Days Have you traveled within the last 30 days?: No Review of Systems Reviewed: No additional complaints except as noted below Constitutional: Reports: As per HPI. Denies: Chills, Fever, Malaise, Night sweats, Weakness, Weight change Eyes: Reports: As per HPI. Denies: Eye discharge, Eye pain, Photophobia, Vision change ENT: Reports: As per HPI. Denies: Congestion, Dental pain, Ear pain, Epistaxis , Hearing loss, Throat pain Respiratory: Reports: As per HPI. Denies: Cough, Dyspnea, Hemoptysis, Stridor, Wheezes Cardiovascular: Reports: As per HPI. Denies: Arrhythmia, Chest pain, Dyspnea on exertion, Edema, Murmurs, Orthopnea, Palpitations, Paroxysmal nocturnal dyspnea, Rheumatic Fever, Syncope Endocrine: Reports: As per HPI. Denies: Fatigue, Heat or cold intolerance, Polydipsia, Polyuria Gastrointestinal: Reports: As per HPI. Denies: Abdominal pain, Constipation, Diarrhea, Hematemesis, Hematochezia, Melena, Nausea, Vomiting Genitourinary: Reports: As per HPI. Denies: Abnormal menses, Discharge, Dyspareunia, Dysuria, Frequency, Hematuria, Incontinence, Retention, Urgency Musculoskeletal: Reports: As per HPI. Denies: Arthralgia, Back pain, Gout, Joint swelling, Myalgia, Neck pain Skin: Reports: As per HPI. Denies: Bruising, Change in color, Change in hair/ nails, Lesions, Pruritus, Rash Neurological: Reports: As per HPI. Denies: Abnormal gait, Confusion, Headache, Numbness, Paresthesias, Seizure, Tingling, Tremors, Vertigo, Weakness Psychiatric: Reports: As per HPI. Denies: Anxiety, Auditory hallucinations, Depression, Homicidal thoughts, Suicidal thoughts, Visual hallucinations Hematological/Lymphatic: Reports: As per HPI. Denies: Anemia, Blood Clots, Easy bleeding, Easy bruising, Swollen glands Past Medical History - SOCIAL HISTORY Smoking Status: Never smoker Alcohol Use: None Drug Use: None - RESPIRATORY Hx Respiratory Disorders: Yes Hx Bronchitis: Yes (2015) Hx Sleep Apnea: Yes Hx of CPAP: No - CARDIOVASCULAR Hx Cardio Disorders: Yes Hx Edema: Yes Comment:: high cholesterol - NEURO Hx Neuro Disorders: Yes Hx Headaches: Yes Hx of Migraines: Yes Hx Neuropathy: Yes (BLE) Hx Seizures: Yes (high fever related as a child none since 7yrs old) - GI Hx GI Disorders: Yes Hx Abdominal Pain: Yes - Hx Genitourinary Disorders: Yes Comment:: PCOS, endometriosis in abd cavity - ENDOCRINE Hx Endocrine Disorders: Yes Hx Diabetes: Yes Hx Thyroid Disease: No - MUSCULOSKELETAL Hx Musculoskeletal Disorders: Yes Hx Gout: Yes Comment:: Bulging discs - PSYCH Hx Psych Problems: Yes Hx Anxiety: Yes (panic attacks) Hx Behavior Problems: Yes (bipolar) - HEMATOLOGY/ONCOLOGY Hx Hematology/Oncology Disorders: No Family Medical History Any Significant Family History?: Yes Hx Cancer: Father, Mother, Grandparents *Cancer Comment: lung, colon, prostate, melanoma Hx Diabetes: Father, Mother, Grandparents Hx Heart Disease: Father, Mother Physical Exam - General General Appearance: Alert, Oriented x3, Cooperative, Moderate distress (in dark room, holdin gice pack on her left cheek), Other (morbidly obese) - Head Head exam: Normal inspection - Eye Eye exam: Normal appearance, PERRL Pupils: Normal accommodation - ENT ENT exam: Normal exam, Mucous membranes moist, Normal external ear exam, Normal orophraynx, TM's normal bilaterally Ear exam: Normal external inspection. negative: External canal tenderness Nasal Exam: Normal inspection. negative: Discharge, Sinus tenderness Mouth exam: Normal external inspection, Tongue normal Teeth exam: Normal inspection. negative: Dental caries Throat exam: Normal inspection. negative: Tonsillar erythema, Tonsillar exudate - Neck Neck exam: Normal inspection, Full ROM. negative: Tenderness - Respiratory Respiratory exam: Normal lung sounds bilaterally. negative: Respiratory distress - Cardiovascular Cardiovascular Exam: Regular rate, Normal rhythm, Normal heart sounds - GI/Abdominal GI/Abdominal exam: Soft, Normal bowel sounds. negative: Tenderness - Rectal Rectal exam: Deferred - exam: Deferred - Extremities Extremities exam: Normal inspection, Full ROM, Normal capillary refill. negative: Tenderness - Back Back exam: Reports: Normal inspection, Full ROM. Denies: Muscle spasm, Rash noted, Tenderness - Neurological Neurological exam: Alert, Normal gait, Oriented X3, Reflexes normal - Psychiatric Psychiatric exam: Normal affect, Normal mood - Skin Skin exam: Dry, Intact, Normal color, Warm Course Vital Signs 05/16/17 19:55 Temperature 99.4 F Pulse Rate [ 109 H Pulse Ox Probe] Respiratory 20 Rate Blood Pressure 127/82 [Left Arm] Pulse Ox 97 - Reevaluation(s) Reevaluation #2: Patient states she is not feeling much better. She agrees to get norflex and phenergan and go home to bed. 05/16/17 21:20 Medical Decision Making - Management Options MDM Management: No Additional Work-up Planned Disposition Disposition: Discharge Clinical Impression: Migraine Qualifiers: Migraine type: unspecified Status migrainosus presence: without status migrainosus Intractability: not intractable Qualified Code(s): G43.909 - Migraine, unspecified, not intractable, without status migrainosus Disposition: Home, Self-Care Condition: (1) Good Instructions: Migraine Headache (ED) Additional Instructions: Home, rest. Do not drive tonight. Continue present meds. Follow up with PCP as needed. Quality - Quality Measures Quality Measures: N/A, Headache - Headache: Neuroimaging Quality Measure: Measure #419: Overuse of Neuroimaging Headache: Use of Neuroimaging: < CTA, CT, MRA or MRI was NOT ordered > [G9534] Neurological Exam: Patient had a normal neurological exam. [G9535] - Blood Pressure Screening Blood Pressure Classification: Pre-Hypertensive BP Reading Systolic Measurement: 127 Diastolic Measurement: 82 Screening for High Blood Pressure: < Normal BP, F/U Not Required > [G8783] Normal BP Follow-up Interventions: No follow-up required
[2017-05-16] MEDS ORDERED: METOCLOPRAMIDE HCL 10 MG/2 ML VIAL IVP ONE (20:14)
[2017-05-16] MEDS ORDERED: KETOROLAC 30 MG/ML VIAL IVP ONE (20:14)
[2017-05-16] MEDS ORDERED: 0.9 % SODIUM CHLORIDE 1,000 ML BAG IV ONE (20:14)
[2017-05-16] MEDS ORDERED: DIPHENHYDRAMINE HCL IV 50 MG/ML VIAL IVP ONE (20:14)
[2017-05-16] MEDS ORDERED: PROMETHAZINE HCL 25 MG in 0.9 % SODIUM CHLORIDE 100ML 50 ML IVP ONE (21:19)
[2017-05-16] MEDS ORDERED: ORPHENADRINE CITRATE 60MG/2ML VIAL IVP ONE (21:19)
== END 2017-05-16 22:03 | disposition home or self-care (01) ==
LOC: ER 19:47
DX: G43.909 Migraine, unspecified, not intractable, without status migrainosus (principal); R11.2 Nausea with vomiting, unspecified; H53.149 Visual discomfort, unspecified
CPT/HCPCS: 99284 ×2; 96374; 96375; J1885; J1200; J2360; J2550; J2765

== ENCOUNTER 2017-10-05 16:08 | Emergency (ER) | payer MEDICARE, OTHER, MEDICAID ==
[2017-10-05] MEDS: KETOROLAC 30 MG/ML VIAL IVP ONE (16:54)
[2017-10-05] MEDS: METOCLOPRAMIDE HCL 10 MG/2 ML VIAL IVP ONE (16:54)
[2017-10-05] MEDS ORDERED: HYDROMORPHONE HCL 1MG/ML **SYRINGE IVP ONE (16:54)
[2017-10-05] MEDS: DIPHENHYDRAMINE HCL IV 50 MG/ML VIAL IVP ONE (16:54)
[2017-10-05] MEDS: 0.9 % SODIUM CHLORIDE 1000ML 1,000 ML IV ONE (16:55)
--- NOTE | 2017-10-05 17:10 | Emergency Department Record ---
History of Present Illness - General Chief complaint: ENT Stated complaint: MIGRAINE,LT EAR PAIN Time Seen by Provider: 10/05/17 16:22 Source: Patient, RN notes reviewed Mode of Arrival: Ambulatory - History of Present Illness Initial comments: headache similiar to other headaches and she has been seen for migraines before Onset/Timin -: Days(s) Location: L ear Severity scale (1-10): 8 Consistency: Constant Improves with: None Worsens with: None Associated Symptoms: Other - Related Data Previous Rx's Medication Instructions Recorded Metformin HCl [Glucophage] 1,000 mg PO BID #180 tablet 05/21/15 Neomycin/Polymyxin B Sulf/Hc 4 drop OT QID #10 btl 10/05/17 [Cortisporin Otic] Allergies Allergy/AdvReac Type Severity Reaction Status Date / Time cephalexin monohydrate Allergy Intermediate throat Unverified 09/14/17 13:45 [From Keflex] swelling doxycycline Allergy Intermediate VOMITING Unverified 09/14/17 13:45 fluoxetine HCl [From Prozac] Allergy Intermediate HYPERSENSIT Unverified 13:45 IVITY Sulfa (Sulfonamide Allergy Intermediate HIVES Unverified 09/14/17 13:45 Antibiotics) sulfamethoxazole Allergy Intermediate HIVES Unverified 09/14/17 13:45 [From Bactrim] sumatriptan succinate Allergy Intermediate TACHYCARDIA Unverified 09/14/17 13:45 [From Imitrex] trimethoprim [From Bactrim] Allergy Intermediate HIVES Unverified 09/14/17 13:45 topiramate [From Topamax] AdvReac DIZZINESS Unverified 09/14/17 13:45 SILK TAPE AdvReac Mild RASH Uncoded 03/19/17 12:13 Imitrex (oral only) AdvReac TACHYCARDIA Uncoded 03/19/17 12:13 Travel Screening - Travel/Exposure Within Last 30 Days Have you traveled within the last 30 days?: No Review of Systems Reviewed: No additional complaints except as noted below Constitutional: Reports: As per HPI. Denies: Chills, Fever, Malaise, Night sweats, Weakness, Weight change Eyes: Reports: As per HPI. Denies: Eye discharge, Eye pain, Photophobia, Vision change ENT: Reports: As per HPI, Ear pain (left ear apin ). Denies: Congestion, Dental pain, Epistaxis, Hearing loss, Throat pain Respiratory: Reports: As per HPI. Denies: Cough, Dyspnea, Hemoptysis, Stridor, Wheezes Cardiovascular: Reports: As per HPI. Denies: Arrhythmia, Chest pain, Dyspnea on exertion, Edema, Murmurs, Orthopnea, Palpitations, Paroxysmal nocturnal dyspnea, Rheumatic Fever, Syncope Endocrine: Reports: As per HPI. Denies: Fatigue, Heat or cold intolerance, Polydipsia, Polyuria Gastrointestinal: Reports: As per HPI. Denies: Abdominal pain, Constipation, Diarrhea, Hematemesis, Hematochezia, Melena, Nausea, Vomiting Genitourinary: Reports: As per HPI. Denies: Abnormal menses, Discharge, Dyspareunia, Dysuria, Frequency, Hematuria, Incontinence, Retention, Urgency Musculoskeletal: Reports: As per HPI. Denies: Arthralgia, Back pain, Gout, Joint swelling, Myalgia, Neck pain Skin: Reports: As per HPI. Denies: Bruising, Change in color, Change in hair/ nails, Lesions, Pruritus, Rash Neurological: Reports: As per HPI, Headache. Denies: Abnormal gait, Confusion, Numbness, Paresthesias, Seizure, Tingling, Tremors, Vertigo, Weakness Psychiatric: Reports: As per HPI. Denies: Anxiety, Auditory hallucinations, Depression, Homicidal thoughts, Suicidal thoughts, Visual hallucinations Hematological/Lymphatic: Reports: As per HPI. Denies: Anemia, Blood Clots, Easy bleeding, Easy bruising, Swollen glands Past Medical History - SOCIAL HISTORY Smoking Status: Never smoker Alcohol Use: None Drug Use: None - RESPIRATORY Hx Respiratory Disorders: Yes Hx Bronchitis: Yes (2015) Hx Sleep Apnea: Yes Hx of CPAP: No - CARDIOVASCULAR Hx Cardio Disorders: Yes Hx Edema: Yes Comment:: high cholesterol - NEURO Hx Neuro Disorders: Yes Hx Headaches: Yes Hx of Migraines: Yes Hx Neuropathy: Yes (BLE) Hx Seizures: Yes (high fever related as a child none since 7yrs old) - GI Hx GI Disorders: Yes Hx Abdominal Pain: Yes - Hx Genitourinary Disorders: Yes Comment:: PCOS, endometriosis in abd cavity - ENDOCRINE Hx Endocrine Disorders: Yes Hx Diabetes: Yes Hx Thyroid Disease: No - MUSCULOSKELETAL Hx Musculoskeletal Disorders: Yes Hx Gout: Yes Comment:: Bulging discs - PSYCH Hx Psych Problems: Yes Hx Anxiety: Yes (panic attacks) Hx Behavior Problems: Yes (bipolar) - HEMATOLOGY/ONCOLOGY Hx Hematology/Oncology Disorders: No Family Medical History Any Significant Family History?: Yes Hx Cancer: Father, Mother, Grandparents *Cancer Comment: lung, colon, prostate, melanoma Hx Diabetes: Father, Mother, Grandparents Hx Heart Disease: Father, Mother Physical Exam - General General Appearance: Alert, Oriented x3, Cooperative, No acute distress - Head Head exam: Normal inspection - Eye Eye exam: Normal appearance, PERRL Pupils: Normal accommodation - ENT ENT exam: Normal exam, Mucous membranes moist, Normal external ear exam, Normal orophraynx, TM's normal bilaterally Ear exam: Normal external inspection. negative: External canal tenderness Nasal Exam: Normal inspection. negative: Discharge, Sinus tenderness Mouth exam: Normal external inspection, Tongue normal Teeth exam: Normal inspection. negative: Dental caries Throat exam: Normal inspection. negative: Tonsillar erythema, Tonsillar exudate - Neck Neck exam: Normal inspection, Full ROM. negative: Tenderness - Respiratory Respiratory exam: Normal lung sounds bilaterally. negative: Respiratory distress - Cardiovascular Cardiovascular Exam: Regular rate, Normal rhythm, Normal heart sounds - GI/Abdominal GI/Abdominal exam: Soft, Normal bowel sounds. negative: Tenderness - Rectal Rectal exam: Deferred - exam: Deferred - Extremities Extremities exam: Normal inspection, Full ROM, Normal capillary refill. negative: Tenderness - Back Back exam: Reports: Normal inspection, Full ROM. Denies: Muscle spasm, Rash noted, Tenderness - Neurological Neurological exam: Alert, Normal gait, Oriented X3, Reflexes normal - Psychiatric Psychiatric exam: Normal affect, Normal mood - Skin Skin exam: Dry, Intact, Normal color, Warm Course Vital Signs 10/05/17 16:16 Temperature 98.2 F Pulse Rate 99 H Respiratory 20 Rate Blood Pressure 142/72 Pulse Ox 98 - Reevaluation(s) Reevaluation #1: feeling better 10/05/17 17:39 Disposition Clinical Impression: Migraine Qualifiers: Migraine type: unspecified Status migrainosus presence: without status migrainosus Intractability: not intractable Qualified Code(s): G43.909 - Migraine, unspecified, not intractable, without status migrainosus Otitis externa Qualifiers: Otitis externa type: swimmer's ear Chronicity: acute Laterality: left Qualified Code(s): H60.332 - Swimmer's ear, left ear Disposition: Home, Self-Care Condition: (1) Good Prescriptions: Neomycin/Polymyxin B Sulf/Hc [Cortisporin Otic] 4 drop OT QID #10 btl Forms: Patient Portal Access Time of Disposition: 17:12 Quality - Quality Measures Quality Measures: N/A - Blood Pressure Screening Does Patient Have Any of the Following: No Blood Pressure Classification: Hypertensive Reading Systolic Measurement: 142 Diastolic Measurement: 72 Screening for High Blood Pressure: < Pre-Hypertensive BP, F/U Documented > [ G8950] Pre-Hypertensive Follow-up Interventions: Referral to alternative/primary care provider.
== END 2017-10-05 17:58 | disposition home or self-care (01) ==
LOC: ER 16:08
DX: H60.332 Swimmer's ear, left ear (principal)
CPT/HCPCS: 99284 ×2; 96374; 96375; J1885; J1200; J2765

== ENCOUNTER 2017-10-22 06:34 | Emergency (ER) | payer MEDICARE, OTHER, MEDICAID ==
--- NOTE | 2017-10-22 07:34 | Emergency Department Record ---
History of Present Illness - General Chief complaint: Lower Extremity Pain Stated complaint: CAST NEEDS TO COME OFF Time Seen by Provider: 10/22/17 07:10 Source: Patient Mode of Arrival: Wheelchair Limitations: No limitations - History of Present Illness Initial comments: pt has a cast that was put on her l foot 3 days ago that is causing her increased pain and numbness. cast was put on by superintendent track because she has an ulcer on her great toe. she has been put in casts before for this reasong but has never had pain from it like this. Complaint: Extremity pain Onset/Timin -: Hour(s) Location: Left, Lower Leg History of Same: No Radiation: Proximal Severity scale (1-10): 8 Quality: Burning Consistency: Constant Improves with: Nothing Worsens with: Nothing Associated Symptoms: Denies other symptoms - Related Data Previous Rx's Medication Instructions Recorded Metformin HCl [Glucophage] 1,000 mg PO BID #180 tablet 05/21/15 Neomycin/Polymyxin B Sulf/Hc 4 drop OT QID #10 btl 10/05/17 [Cortisporin Otic] Amoxicillin/Potassium Clav 1 each PO BID #20 tablet 10/22/17 [Augmentin 875Mg/125Mg] Allergies Allergy/AdvReac Type Severity Reaction Status Date / Time cephalexin monohydrate Allergy Intermediate throat Verified 10/22/17 06:45 [From Keflex] swelling doxycycline Allergy Intermediate VOMITING Verified 10/22/17 06:46 fluoxetine HCl [From Prozac] Allergy Intermediate HYPERSENSIT Verified 10/22/17 06:46 IVITY Sulfa (Sulfonamide Allergy Intermediate HIVES Verified 10/22/17 06:46 Antibiotics) sulfamethoxazole Allergy Intermediate HIVES Verified 10/22/17 06:46 [From Bactrim] sumatriptan succinate Allergy Intermediate TACHYCARDIA Verified 10/22/17 06:46 [From Imitrex] trimethoprim [From Bactrim] Allergy Intermediate HIVES Verified 10/22/17 06:46 topiramate [From Topamax] AdvReac DIZZINESS Verified 10/22/17 06:46 Imitrex (oral only) AdvReac Intermediate TACHYCARDIA Uncoded 10/22/17 06:45 SILK TAPE AdvReac Mild RASH Uncoded 03/19/17 12:13 Travel Screening - Travel/Exposure Within Last 30 Days Have you traveled within the last 30 days?: No - Travel/Exposure Within Last Year Have you traveled outside the [place] in the last year?: No - Additonal Travel Details Have you been exposed to anyone with a communicable illness?: No Review of Systems Reviewed: No additional complaints except as noted below Constitutional: Reports: As per HPI. Denies: Chills, Fever, Malaise, Night sweats, Weakness, Weight change Eyes: Reports: As per HPI. Denies: Eye discharge, Eye pain, Photophobia, Vision change ENT: Reports: As per HPI. Denies: Congestion, Dental pain, Ear pain, Epistaxis , Hearing loss, Throat pain Respiratory: Reports: As per HPI. Denies: Cough, Dyspnea, Hemoptysis, Stridor, Wheezes Cardiovascular: Reports: As per HPI. Denies: Arrhythmia, Chest pain, Dyspnea on exertion, Edema, Murmurs, Orthopnea, Palpitations, Paroxysmal nocturnal dyspnea, Rheumatic Fever, Syncope Endocrine: Reports: As per HPI. Denies: Fatigue, Heat or cold intolerance, Polydipsia, Polyuria Gastrointestinal: Reports: As per HPI. Denies: Abdominal pain, Constipation, Diarrhea, Hematemesis, Hematochezia, Melena, Nausea, Vomiting Genitourinary: Reports: As per HPI. Denies: Abnormal menses, Discharge, Dyspareunia, Dysuria, Frequency, Hematuria, Incontinence, Retention, Urgency Musculoskeletal: Reports: As per HPI. Denies: Arthralgia, Back pain, Gout, Joint swelling, Myalgia, Neck pain Skin: Reports: As per HPI. Denies: Bruising, Change in color, Change in hair/ nails, Lesions, Pruritus, Rash Neurological: Reports: As per HPI. Denies: Abnormal gait, Confusion, Headache, Numbness, Paresthesias, Seizure, Tingling, Tremors, Vertigo, Weakness Psychiatric: Reports: As per HPI. Denies: Anxiety, Auditory hallucinations, Depression, Homicidal thoughts, Suicidal thoughts, Visual hallucinations Hematological/Lymphatic: Reports: As per HPI. Denies: Anemia, Blood Clots, Easy bleeding, Easy bruising, Swollen glands Past Medical History - SOCIAL HISTORY Smoking Status: Never smoker Alcohol Use: None Drug Use: None - RESPIRATORY Hx Respiratory Disorders: Yes Hx Bronchitis: Yes (2014) Hx Sleep Apnea: Yes Hx of CPAP: No - CARDIOVASCULAR Hx Cardio Disorders: Yes Hx Edema: Yes Comment:: high cholesterol - NEURO Hx Neuro Disorders: Yes Hx Headaches: Yes Hx of Migraines: Yes Hx Neuropathy: Yes (BLE) Hx Seizures: Yes (high fever related as a child none since 7yrs old) - GI Hx GI Disorders: Yes Hx Abdominal Pain: Yes - Hx Genitourinary Disorders: Yes Comment:: PCOS, endometriosis in abd cavity - ENDOCRINE Hx Endocrine Disorders: Yes Hx Diabetes: Yes Hx Thyroid Disease: No - MUSCULOSKELETAL Hx Musculoskeletal Disorders: Yes Hx Gout: Yes Comment:: Bulging discs - PSYCH Hx Psych Problems: Yes Hx Anxiety: Yes (panic attacks) Hx Behavior Problems: Yes (bipolar) - HEMATOLOGY/ONCOLOGY Hx Hematology/Oncology Disorders: No Family Medical History Any Significant Family History?: Yes Hx Cancer: Father, Mother, Grandparents *Cancer Comment: lung, colon, prostate, melanoma Hx Diabetes: Father, Mother, Grandparents Hx Heart Disease: Father, Mother Physical Exam - General General Appearance: Alert, Oriented x3, Cooperative, Mild distress - Head Head exam: Normal inspection - Eye Eye exam: Normal appearance, PERRL, EOMI Pupils: Normal accommodation - ENT ENT exam: Normal exam, Mucous membranes moist, Normal external ear exam, Normal orophraynx Ear exam: Normal external inspection. negative: External canal tenderness Nasal Exam: Normal inspection. negative: Discharge, Sinus tenderness Mouth exam: Normal external inspection, Tongue normal Teeth exam: Normal inspection. negative: Dental caries Throat exam: Normal inspection. negative: Tonsillar erythema, Tonsillar exudate - Neck Neck exam: Normal inspection, Full ROM. negative: Tenderness - Respiratory Respiratory exam: Normal lung sounds bilaterally. negative: Respiratory distress - Cardiovascular Cardiovascular Exam: Regular rate, Normal rhythm, Normal heart sounds - GI/Abdominal GI/Abdominal exam: Soft, Normal bowel sounds. negative: Tenderness - Rectal Rectal exam: Deferred - exam: Deferred - Extremities Extremities exam: Full ROM, Normal capillary refill, Tenderness, Other (cast removed) Image of Feet: 1 - mild erythema and selling w slight oozing 2 - ulcer 3 - new area of erythema [from cast] - Back Back exam: Reports: Normal inspection, Full ROM. Denies: Muscle spasm, Rash noted, Tenderness - Neurological Neurological exam: Alert, CN II-XII intact, Normal gait, Oriented X3 - Psychiatric Psychiatric exam: Normal affect, Normal mood - Skin Skin exam: Dry, Intact, Normal color, Warm Course Vital Signs 10/22/17 06:36 Temperature 98.7 F Pulse Rate 86 Respiratory 20 Rate Blood Pressure 130/87 Pulse Ox 97 - Reevaluation(s) Reevaluation #1: 10/22/17 07:38 cast removed. pt feels better but is concerned re new redness in 2nd toe Disposition Disposition: Discharge Clinical Impression: Cast discomfort, Cast removal Cellulitis Qualifiers: Site of cellulitis: extremity Site of cellulitis of extremity: toe Laterality: left Qualified Code(s): L03.032 - Cellulitis of left toe Diabetic ulcer of toe Qualifiers: Diabetes mellitus type: type 2 Laterality: left Non-pressure ulcer stage: unspecified non-pressure ulcer stage Qualified Code(s): E11.621 - Type 2 diabetes mellitus with foot ulcer; L97.529 - Non-pressure chronic ulcer of other part of left foot with unspecified severity; L97.529 - Non-pressure chronic ulcer of other part of left foot with unspecified severity; L97.529 - Non-pressure chronic ulcer of other part of left foot with unspecified severity ; L97.529 - Non-pressure chronic ulcer of other part of left foot with unspecified severity Condition: (1) Good Instructions: Diabetic Foot Ulcers (ED), Cellulitis (ED) Additional Instructions: follow up with superintendent track on tuesday. return sooner if worse. elevate and soak foot Prescriptions: Amoxicillin/Potassium Clav [Augmentin 875Mg/125Mg] 1 each PO BID #20 tablet Quality - Quality Measures Quality Measures: N/A - Blood Pressure Screening Does Patient Have Any of the Following: No Blood Pressure Classification: Pre-Hypertensive BP Reading Systolic Measurement: 130 Diastolic Measurement: 87 Screening for High Blood Pressure: < Pre-Hypertensive BP, F/U Documented > [ G8950] Pre-Hypertensive Follow-up Interventions: Follow-up with rescreen every year.
== END 2017-10-22 08:00 | disposition home or self-care (01) ==
LOC: ER 06:34
DX: L03.032 Cellulitis of left toe (principal); E11.621 Type 2 diabetes mellitus with foot ulcer; L97.529 Non-pressure chronic ulcer of other part of left foot with unspecified severity; Z79.84 Long term (current) use of oral hypoglycemic drugs
CPT/HCPCS: 99282

== ENCOUNTER 2017-11-10 16:23 | Emergency (ER) | payer MEDICARE, OTHER, MEDICAID ==
[2017-11-10] MEDS ORDERED: HUMULIN R 100 UNIT/ML VIAL SC ONE (16:24)
[2017-11-10] MEDS ORDERED: KETOROLAC 30 MG/ML VIAL IVP ONE (16:42)
[2017-11-10] MEDS ORDERED: DIPHENHYDRAMINE HCL IV 50 MG/ML VIAL IVP ONE (16:42)
[2017-11-10] MEDS ORDERED: METOCLOPRAMIDE HCL 10 MG/2 ML VIAL IVP ONE (16:42)
[2017-11-10] MEDS ORDERED: 0.9 % SODIUM CHLORIDE 1,000 ML BAG IV ONE (16:42)
--- NOTE | 2017-11-10 16:48 | Emergency Department Record ---
History of Present Illness - General Chief Complaint: Headache Migraine Stated Complaint: BISHOP/MIGRAINE Time Seen by Provider: 11/10/17 16:37 Source: Patient Mode of Arrival: Ambulatory Limitations: No limitations - History of Present Illness Initial Comments: The patient is here due to a migraine BISHOP. She had the onset of a frontal BISHOP last evening about 18 hours ago and it has slowly worsened. She has had some visual changes she describes as an aura also. The patient has a long hx of these exact same BISHOP's in the past and has been to the ER multiple times for them. The symptoms today are typical for her. She also is under a lot of stress at home. MD Complaint: "Migraine" Onset/Timin -: Hour(s) Onset Description: Gradual Location: Frontal Severity: Moderate Severity scale (1-10): 10 Quality: Aching, Pulsatile Improves With: Nothing Worsens With: None Associated Symptoms: Photophobia, Sensitivity to sound, Other Treatments Prior to Arrival: Prescription analgesic Treatment Prior to Arrival Comment:: Toradol 10am - Related Data Previous Rx's Medication Instructions Recorded Metformin HCl [Glucophage] 1,000 mg PO BID #180 tablet 05/21/15 Neomycin/Polymyxin B Sulf/Hc 4 drop OT QID #10 btl 10/05/17 [Cortisporin Otic] Amoxicillin/Potassium Clav 1 each PO BID #20 tablet 10/22/17 [Augmentin 875Mg/125Mg] Allergies Allergy/AdvReac Type Severity Reaction Status Date / Time cephalexin monohydrate Allergy Intermediate throat Verified 10/22/17 06:45 [From Keflex] swelling doxycycline Allergy Intermediate VOMITING Verified 10/22/17 06:46 fluoxetine HCl [From Prozac] Allergy Intermediate HYPERSENSIT Verified 10/22/17 06:46 IVITY Sulfa (Sulfonamide Allergy Intermediate HIVES Verified 10/22/17 06:46 Antibiotics) sulfamethoxazole Allergy Intermediate HIVES Verified 10/22/17 06:46 [From Bactrim] sumatriptan succinate Allergy Intermediate TACHYCARDIA Verified 10/22/17 06:46 [From Imitrex] trimethoprim [From Bactrim] Allergy Intermediate HIVES Verified 10/22/17 06:46 topiramate [From Topamax] AdvReac DIZZINESS Verified 10/22/17 06:46 Imitrex (oral only) AdvReac Intermediate TACHYCARDIA Uncoded 10/22/17 06:45 SILK TAPE AdvReac Mild RASH Uncoded 03/19/17 12:13 Travel Screening - Travel/Exposure Within Last 30 Days Have you traveled within the last 30 days?: No - Travel/Exposure Within Last Year Have you traveled outside the [place] in the last year?: No - Additonal Travel Details Have you been exposed to anyone with a communicable illness?: No - Travel Symptoms Symptom Screening: None Review of Systems Constitutional: Denies: Chills, Fever Eyes: Denies: Eye discharge ENT: Denies: Congestion Respiratory: Denies: Cough, Dyspnea Past Medical History - SOCIAL HISTORY Smoking Status: Never smoker Alcohol Use: Rare Drug Use: Occasional Drug Use Detail:: Marijuana - RESPIRATORY Hx Respiratory Disorders: Yes Hx Bronchitis: Yes (2015) Hx Sleep Apnea: Yes Hx of CPAP: No - CARDIOVASCULAR Hx Cardio Disorders: Yes Hx Edema: Yes Comment:: high cholesterol - NEURO Hx Neuro Disorders: Yes Hx Headaches: Yes Hx of Migraines: Yes Hx Neuropathy: Yes (BLE) Hx Seizures: Yes (high fever related as a child none since 7yrs old) - GI Hx GI Disorders: Yes Hx Abdominal Pain: Yes - Hx Genitourinary Disorders: Yes Comment:: PCOS, endometriosis in abd cavity - ENDOCRINE Hx Endocrine Disorders: Yes Hx Diabetes: Yes Hx Thyroid Disease: No - MUSCULOSKELETAL Hx Musculoskeletal Disorders: Yes Hx Gout: Yes Comment:: Bulging discs - PSYCH Hx Psych Problems: Yes Hx Anxiety: Yes (panic attacks) Hx Behavior Problems: Yes (bipolar) - HEMATOLOGY/ONCOLOGY Hx Hematology/Oncology Disorders: No Family Medical History Any Significant Family History?: No Hx Cancer: Father, Mother, Grandparents *Cancer Comment: lung, colon, prostate, melanoma Hx Diabetes: Father, Mother, Grandparents Hx Heart Disease: Father, Mother Physical Exam - General General Appearance: Alert, Oriented x3, Cooperative, No acute distress - Head Head exam: Atraumatic, Normocephalic, Normal inspection - Eye Eye exam: Normal appearance, PERRL, EOMI - Neck Neck exam: Normal inspection, Full ROM. negative: Tenderness - Respiratory Respiratory exam: Normal lung sounds bilaterally. negative: Respiratory distress - Cardiovascular Cardiovascular Exam: Regular rate, Normal rhythm, Normal heart sounds - GI/Abdominal GI/Abdominal exam: Soft, Normal bowel sounds. negative: Tenderness - Extremities Extremities exam: Normal inspection, Full ROM, Normal capillary refill. negative: Tenderness - Neurological Neurological exam: Alert, Normal gait, Oriented X3, Other (Neg Drift and Rhomberg exams.). negative: Abnormal gait, Motor sensory deficit - Psychiatric Psychiatric exam: negative: Agitated, Anxious - Skin Skin exam: negative: Rash Course Vital Signs 11/10/17 16:27 Temperature 98.9 F Pulse Rate 106 H Respiratory 16 Rate Blood Pressure 121/71 Pulse Ox 98 - Reevaluation(s) Reevaluation #1: The patient is doing better. I did discuss her elevated blood sugar with her and she states it was 570 last evening. Her BISHOP is improving presently so we will give her an extra 5 units of Reg Insulin IV and recheck her blood sugar in an hour. 11/10/17 17:25 Reevaluation #2: The patient is doing much better. Her pain is resolving and she feels MUCH better. On recheck of her sugar her accucheck is reading under 400. She is to monitor her blood sugar and see her diabetes doctor next week as planned. 11/10/17 18:07 Medical Decision Making - Data Complexity MDM Data: Labs Ordered and/or Reviewed - Lab Data Result diagrams: 11/10/17 16:53 11/10/17 16:53 Disposition Disposition: Discharge Clinical Impression: Migraine Qualifiers: Migraine type: unspecified Status migrainosus presence: without status migrainosus Intractability: not intractable Qualified Code(s): G43.909 - Migraine, unspecified, not intractable, without status migrainosus Disposition: Home, Self-Care Condition: (2) Stable Instructions: Migraine Headache (ED) Additional Instructions: Please continue your regular medicines and monitor your blood sugar regularly. Please keep your appointments with your doctors for next week. Return to the ER for any worsening symptoms or a blood sugar > 500. Forms: Patient Portal Access Time of Disposition: 18:10 Quality - Quality Measures Quality Measures: N/A - Blood Pressure Screening View Details: Yes Does Patient Have Any of the Following: No Blood Pressure Classification: Pre-Hypertensive BP Reading Systolic Measurement: 121 Diastolic Measurement: 71 Screening for High Blood Pressure: < Pre-Hypertensive BP, F/U Documented > [ G8950] Pre-Hypertensive Follow-up Interventions: Referral to alternative/primary care provider.
[2017-11-10 16:59] LABS: BASO % 0.2 % (0-6); EOS % 5.3 % (0-6); HEMATOCRIT 33.4 % (35.0-47.0); HEMOGLOBIN 10.8 gm/dl (11.6-16.0); LYMPH % 24.5 % (16-45); MEAN CELL VOLUME 88.8 fl (81-97); MEAN CORPUSCULAR HEMOGLOBIN 28.7 pg (27-33); MEAN CORPUSCULAR HGB CONC 32.3 g/dl (32-36); MEAN PLATELET VOLUME 10.8 fl (7.4-10.4); PLATELET COUNT 151 K/uL (130-400); RED BLOOD COUNT 3.76 M/uL (3.80-5.40); RED CELL DISTRIBUTION WIDTH 15.4 % (11.5-14.5); WHITE BLOOD COUNT W/O DIFF 6.2 K/uL (4.2-12.2)
[2017-11-10 17:10] LABS: BLOOD UREA NITROGEN 11 mg/dL (6-20); CREATININE 0.7 mg/dL (0.5-0.9); EST GLOMERULAR FILTRATION RATE > 60 mL/min
[2017-11-10 17:17] LABS: GLUCOSE,RANDOM 471 mg/dL (74-109)
[2017-11-10] MEDS ORDERED: HUMULIN R 100 UNIT/ML VIAL IV ONE (17:19)
== END 2017-11-10 18:22 | disposition home or self-care (01) ==
LOC: ER 16:23
DX: G43.909 Migraine, unspecified, not intractable, without status migrainosus (principal); H53.149 Visual discomfort, unspecified; E11.65 Type 2 diabetes mellitus with hyperglycemia; Z79.84 Long term (current) use of oral hypoglycemic drugs
CPT/HCPCS: 99284 ×2; 96374; 96375; 96361; 85025; 80048; 36416; 82948; J1885; J1815; J1200; J2765; J7030

== ENCOUNTER 2017-11-25 22:23 | Emergency (ER) | payer MEDICARE, OTHER, MEDICAID ==
[2017-11-26] MEDS ORDERED: DIPHENHYDRAMINE HCL IV 50 MG/ML VIAL IVP ONE (00:11)
[2017-11-26] MEDS ORDERED: METOCLOPRAMIDE HCL 10 MG/2 ML VIAL IVP ONE (00:12)
[2017-11-26] MEDS ORDERED: KETOROLAC 30 MG/ML VIAL IVP ONE (00:12)
--- NOTE | 2017-11-26 00:47 | Emergency Department Record ---
History of Present Illness - General Chief Complaint: Headache Migraine Stated Complaint: MIGRAINE Time Seen by Provider: 11/25/17 23:56 Source: Patient Mode of Arrival: Ambulatory Limitations: No limitations - History of Present Illness MD Complaint: "Migraine" Onset/Timin -: Days(s) Location: Frontal Severity scale (1-10): 9 Quality: Similar to previous headaches Consistency: Constant Improves With: Nothing Worsens With: Light, Noise Associated Symptoms: Nausea, Photophobia, Sensitivity to sound Treatments Prior to Arrival: Migraine medication - Related Data Home Medications Medication Instructions Recorded Confirmed Last Taken Ciprofloxacin HCl [Cipro] 500 mg PO Q12HR 11/25/17 11/25/17 Unknown Previous Rx's Medication Instructions Recorded Metformin HCl [Glucophage] 1,000 mg PO BID #180 tablet 05/21/15 Neomycin/Polymyxin B Sulf/Hc 4 drop OT QID #10 btl 10/05/17 [Cortisporin Otic] Allergies Allergy/AdvReac Type Severity Reaction Status Date / Time cephalexin monohydrate Allergy Intermediate throat Verified 11/25/17 22:42 [From Keflex] swelling doxycycline Allergy Intermediate VOMITING Verified 11/25/17 22:42 fluoxetine HCl [From Prozac] Allergy Intermediate HYPERSENSIT Verified 11/25/17 22:42 IVITY Sulfa (Sulfonamide Allergy Intermediate HIVES Verified 11/25/17 22:42 Antibiotics) sulfamethoxazole Allergy Intermediate HIVES Verified 11/25/17 22:42 [From Bactrim] sumatriptan succinate Allergy Intermediate TACHYCARDIA Verified 11/25/17 22:42 [From Imitrex] trimethoprim [From Bactrim] Allergy Intermediate HIVES Verified 11/25/17 22:42 topiramate [From Topamax] AdvReac DIZZINESS Verified 11/25/17 22:42 Imitrex (oral only) AdvReac Intermediate TACHYCARDIA Uncoded 10/22/17 06:45 SILK TAPE AdvReac Mild RASH Uncoded 03/19/17 12:13 Travel Screening - Travel/Exposure Within Last 30 Days Have you traveled within the last 30 days?: No - Travel Symptoms Symptom Screening: None Review of Systems Reviewed: No additional complaints except as noted below Constitutional: Reports: As per HPI. Denies: Chills, Fever, Malaise, Night sweats, Weakness, Weight change Eyes: Reports: As per HPI. Denies: Eye discharge, Eye pain, Photophobia, Vision change ENT: Reports: As per HPI. Denies: Congestion, Dental pain, Ear pain, Epistaxis , Hearing loss, Throat pain Respiratory: Reports: As per HPI. Denies: Cough, Dyspnea, Hemoptysis, Stridor, Wheezes Cardiovascular: Reports: As per HPI. Denies: Arrhythmia, Chest pain, Dyspnea on exertion, Edema, Murmurs, Orthopnea, Palpitations, Paroxysmal nocturnal dyspnea, Rheumatic Fever, Syncope Endocrine: Reports: As per HPI. Denies: Fatigue, Heat or cold intolerance, Polydipsia, Polyuria Gastrointestinal: Reports: As per HPI, Nausea. Denies: Abdominal pain, Constipation, Diarrhea, Hematemesis, Hematochezia, Melena, Vomiting Genitourinary: Reports: As per HPI. Denies: Abnormal menses, Discharge, Dyspareunia, Dysuria, Frequency, Hematuria, Incontinence, Retention, Urgency Musculoskeletal: Reports: As per HPI. Denies: Arthralgia, Back pain, Gout, Joint swelling, Myalgia, Neck pain Skin: Reports: As per HPI. Denies: Bruising, Change in color, Change in hair/ nails, Lesions, Pruritus, Rash Neurological: Reports: As per HPI, Headache. Denies: Abnormal gait, Confusion, Numbness, Paresthesias, Seizure, Tingling, Tremors, Vertigo, Weakness Psychiatric: Reports: As per HPI. Denies: Anxiety, Auditory hallucinations, Depression, Homicidal thoughts, Suicidal thoughts, Visual hallucinations Hematological/Lymphatic: Reports: As per HPI. Denies: Anemia, Blood Clots, Easy bleeding, Easy bruising, Swollen glands Past Medical History - SOCIAL HISTORY Smoking Status: Never smoker Drug Use Detail:: Marijuana - RESPIRATORY Hx Respiratory Disorders: Yes Hx Bronchitis: Yes (2015) Hx Sleep Apnea: Yes Hx of CPAP: No - CARDIOVASCULAR Hx Cardio Disorders: Yes Hx Edema: Yes Comment:: high cholesterol - NEURO Hx Neuro Disorders: Yes Hx Headaches: Yes Hx of Migraines: Yes Hx Neuropathy: Yes (BLE) Hx Seizures: Yes (high fever related as a child none since 7yrs old) - GI Hx GI Disorders: Yes Hx Abdominal Pain: Yes - Hx Genitourinary Disorders: Yes Comment:: PCOS, endometriosis in abd cavity - ENDOCRINE Hx Endocrine Disorders: Yes Hx Diabetes: Yes Hx Thyroid Disease: No - MUSCULOSKELETAL Hx Musculoskeletal Disorders: Yes Hx Gout: Yes Comment:: Bulging discs - PSYCH Hx Psych Problems: Yes Hx Anxiety: Yes (panic attacks) Hx Behavior Problems: Yes (bipolar) - HEMATOLOGY/ONCOLOGY Hx Hematology/Oncology Disorders: No Family Medical History Any Significant Family History?: Yes Hx Cancer: Father, Mother, Grandparents *Cancer Comment: lung, colon, prostate, melanoma Hx Diabetes: Father, Mother, Grandparents Hx Heart Disease: Father, Mother Physical Exam - General General Appearance: Alert, Oriented x3, Cooperative, Mild distress - Head Head exam: Normal inspection - Eye Eye exam: Normal appearance, PERRL, EOMI Pupils: Normal accommodation - ENT ENT exam: Normal exam, Mucous membranes moist, Normal external ear exam, Normal orophraynx Ear exam: Normal external inspection. negative: External canal tenderness Nasal Exam: Normal inspection. negative: Discharge, Sinus tenderness Mouth exam: Normal external inspection, Tongue normal Teeth exam: Normal inspection. negative: Dental caries Throat exam: Normal inspection. negative: Tonsillar erythema, Tonsillar exudate - Neck Neck exam: Normal inspection, Full ROM. negative: Tenderness - Respiratory Respiratory exam: Normal lung sounds bilaterally. negative: Respiratory distress - Cardiovascular Cardiovascular Exam: Regular rate, Normal rhythm, Normal heart sounds - GI/Abdominal GI/Abdominal exam: Soft, Normal bowel sounds. negative: Tenderness - Rectal Rectal exam: Deferred - exam: Deferred - Extremities Extremities exam: Normal inspection, Full ROM, Normal capillary refill. negative: Tenderness - Back Back exam: Reports: Normal inspection, Full ROM. Denies: Muscle spasm, Rash noted, Tenderness - Neurological Neurological exam: Alert, CN II-XII intact, Normal gait, Oriented X3 - Psychiatric Psychiatric exam: Normal affect, Normal mood - Skin Skin exam: Dry, Intact, Normal color, Warm Course Vital Signs 11/25/17 22:43 Temperature 98.5 F Pulse Rate 101 H Respiratory 20 Rate Blood Pressure 103/65 Pulse Ox 97 - Reevaluation(s) Reevaluation #1: 11/26/17 01:09 pt feels better Disposition Disposition: Discharge Clinical Impression: Migraine Qualifiers: Migraine type: unspecified Status migrainosus presence: with status migrainosus Intractability: intractable Qualified Code(s): G43.911 - Migraine, unspecified, intractable, with status migrainosus Disposition: Home, Self-Care Condition: (1) Good Instructions: Migraine Headache (ED) Additional Instructions: follow up with family doctor. return sooner if worse. push fluids Forms: Patient Portal Access Quality - Quality Measures Quality Measures: N/A - Blood Pressure Screening Does Patient Have Any of the Following: No Blood Pressure Classification: Normal BP Reading Systolic Measurement: 103 Diastolic Measurement: 65 Screening for High Blood Pressure: < Normal BP, F/U Not Required > [G8783]
== END 2017-11-26 01:18 | disposition home or self-care (01) ==
LOC: ER 22:23
DX: G43.911 Migraine, unspecified, intractable, with status migrainosus (principal); R11.0 Nausea; H53.149 Visual discomfort, unspecified
CPT/HCPCS: 99284 ×2; 96374; 96375; 36416; 82948; J1885; J1200; J2765

== ENCOUNTER 2017-12-04 21:37 | Emergency (ER) | payer MEDICARE, OTHER, MEDICAID ==
[2017-12-04] MEDS ORDERED: DIPHENHYDRAMINE HCL IV 50 MG/ML VIAL IVP ONE (22:23)
[2017-12-04] MEDS ORDERED: KETOROLAC 30 MG/ML VIAL IVP ONE (22:23)
[2017-12-04] MEDS ORDERED: METOCLOPRAMIDE HCL 10 MG/2 ML VIAL IVP ONE (22:23)
--- NOTE | 2017-12-04 22:28 | Emergency Department Record ---
History of Present Illness - General Chief Complaint: Headache Migraine Stated Complaint: MIGRAINE Time Seen by Provider: 12/04/17 22:10 Source: Patient Mode of Arrival: Ambulatory Limitations: No limitations - History of Present Illness Initial Comments: 37 yo female presents to ED for evaluation of a "migraine headache" that began approximately 48 hours ago. Patient reports taking her home regimen for her headaches without significant improvement. Patient denies fevers, chills, or neck stiffness symptoms. Patient denies the use of anticoagulation medications. MD Complaint: Headache Onset/Timin -: Days(s) Onset Description: Gradual Location: Diffuse Severity scale (1-10): 9 Quality: Similar to previous headaches Consistency: Constant, Getting worse Improves With: Nothing Worsens With: None Treatments Prior to Arrival: Migraine medication, Prescription analgesic, Other - Symptoms of Stroke Baseline State: Baseline State - Related Data Previous Rx's Medication Instructions Recorded Metformin HCl [Glucophage] 1,000 mg PO BID #180 tablet 05/21/15 Neomycin/Polymyxin B Sulf/Hc 4 drop OT QID #10 btl 10/05/17 [Cortisporin Otic] Allergies Allergy/AdvReac Type Severity Reaction Status Date / Time cephalexin monohydrate Allergy Intermediate throat Verified 12/04/17 22:18 [From Keflex] swelling doxycycline Allergy Intermediate VOMITING Verified 12/04/17 22:18 fluoxetine HCl [From Prozac] Allergy Intermediate HYPERSENSIT Verified 12/04/17 22:18 IVITY Sulfa (Sulfonamide Allergy Intermediate HIVES Verified 12/04/17 22:18 Antibiotics) sulfamethoxazole Allergy Intermediate HIVES Verified 12/04/17 22:18 [From Bactrim] sumatriptan succinate Allergy Intermediate TACHYCARDIA Verified 12/04/17 22:18 [From Imitrex] trimethoprim [From Bactrim] Allergy Intermediate HIVES Verified 12/04/17 22:18 topiramate [From Topamax] AdvReac DIZZINESS Verified 12/04/17 22:18 Imitrex (oral only) AdvReac Intermediate TACHYCARDIA Uncoded 12/04/17 22:18 SILK TAPE AdvReac Mild RASH Uncoded 12/04/17 22:18 Travel Screening - Travel/Exposure Within Last 30 Days Have you traveled within the last 30 days?: No - Travel/Exposure Within Last Year Have you traveled outside the [place] in the last year?: No - Additonal Travel Details Have you been exposed to anyone with a communicable illness?: No - Travel Symptoms Symptom Screening: None Review of Systems Constitutional: Denies: Chills, Fever, Malaise, Night sweats Eyes: Denies: Eye discharge, Eye pain ENT: Denies: Congestion, Ear pain Respiratory: Denies: Cough, Dyspnea Cardiovascular: Denies: Chest pain, Dyspnea on exertion Endocrine: Denies: Fatigue, Heat or cold intolerance Gastrointestinal: Denies: Abdominal pain, Nausea, Vomiting Genitourinary: Denies: Incontinence, Retention Musculoskeletal: Denies: Arthralgia, Back pain, Gout, Joint swelling Skin: Denies: Bruising, Change in color Neurological: Reports: Headache. Denies: Abnormal gait, Confusion, Seizure Psychiatric: Denies: Anxiety Hematological/Lymphatic: Denies: Anemia, Blood Clots Past Medical History - SOCIAL HISTORY Smoking Status: Never smoker Alcohol Use: Rare Drug Use: Heavy Drug Use Detail:: Marijuana, Opiates - RESPIRATORY Hx Respiratory Disorders: Yes Hx Bronchitis: Yes (2015) Hx Sleep Apnea: Yes Hx of CPAP: No (PT IS SUPPOSED TO WEAR ONE) - CARDIOVASCULAR Hx Cardio Disorders: Yes Hx Edema: Yes - NEURO Hx Neuro Disorders: Yes Hx Headaches: Yes Hx of Migraines: Yes Hx Neuropathy: Yes (BLE) Hx Seizures: Yes (high fever related as a child none since 7yrs old) - GI Hx GI Disorders: Yes Hx Abdominal Pain: Yes - Hx Genitourinary Disorders: Yes Comment:: PCOS, endometriosis in abd cavity - ENDOCRINE Hx Endocrine Disorders: Yes Hx Diabetes: Yes Hx Thyroid Disease: No - MUSCULOSKELETAL Hx Musculoskeletal Disorders: Yes Hx Gout: Yes Comment:: Bulging discs - PSYCH Hx Psych Problems: Yes Hx Anxiety: Yes (panic attacks) Hx Behavior Problems: Yes (bipolar) - HEMATOLOGY/ONCOLOGY Hx Hematology/Oncology Disorders: No Family Medical History Any Significant Family History?: No Hx Cancer: Father, Mother, Grandparents *Cancer Comment: lung, colon, prostate, melanoma Hx Diabetes: Father, Mother, Grandparents Hx Heart Disease: Father, Mother Physical Exam - General General Appearance: Alert, Oriented x3, Cooperative, Mild distress Limitations: No limitations - Head Head exam: Atraumatic, Normocephalic, Normal inspection Head exam detail: negative: Abrasion, Contusion, Marcelino's sign, General tenderness, Hematoma, Laceration - Eye Eye exam: Normal appearance. negative: Conjunctival injection, Periorbital swelling, Periorbital tenderness, Scleral icterus - ENT Ear exam: negative: Auricular hematoma, Auricular trauma Nasal Exam: negative: Active bleeding, Discharge, Dried blood, Foreign body Mouth exam: negative: Drooling, Laceration, Muffled voice, Tongue elevation - Neck Neck exam: Normal inspection. negative: Meningismus, Tenderness - Respiratory Respiratory exam: Normal lung sounds bilaterally. negative: Rales, Respiratory distress, Rhonchi, Stridor - Cardiovascular Cardiovascular Exam: Regular rate, Normal rhythm, Normal heart sounds - GI/Abdominal GI/Abdominal exam: Soft. negative: Rebound, Rigid, Tenderness - Rectal Rectal exam: Deferred - exam: Deferred - Extremities Extremities exam: Normal inspection. negative: Pedal edema, Tenderness - Back Back exam: Denies: CVA tenderness (R), CVA tenderness (L) - Neurological Neurological exam: Alert, Normal gait, Oriented X3 - Psychiatric Psychiatric exam: Normal affect, Normal mood - Skin Skin exam: Normal color. negative: Abrasion Type of lesion: negative: abrasion Course Vital Signs 12/04/17 22:09 Temperature 99.5 F Pulse Rate [ 98 H Pulse Ox Probe] Respiratory 18 Rate Blood Pressure 135/83 [Right Arm] Pulse Ox 99 - Reevaluation(s) Reevaluation #1: 12/04/17 23:18 Patient reassessed and reports that she is feeling much better, appears stable for discharge at this time. Disposition Disposition: Discharge Clinical Impression: Headache Qualifiers: Headache type: unspecified Headache chronicity pattern: acute headache Intractability: not intractable Qualified Code(s): R51 - Headache Disposition: Home, Self-Care Condition: (2) Stable Instructions: Acute Headache (ED) Additional Instructions: Return to ED if your symptoms worsen or if you have any concerns. Follow-up with your family doctor in 3-5 days as directed. Forms: Patient Portal Access Time of Disposition: 23:19 Quality - Quality Measures Quality Measures: N/A - Blood Pressure Screening Does Patient Have Any of the Following: No Blood Pressure Classification: Pre-Hypertensive BP Reading Systolic Measurement: 139 Diastolic Measurement: 84 Screening for High Blood Pressure: < Pre-Hypertensive BP, F/U Documented > [ G8950] Pre-Hypertensive Follow-up Interventions: Referral to alternative/primary care provider.
[2017-12-04] MEDS ORDERED: 0.9 % SODIUM CHLORIDE 1000ML 1,000 ML IV SCH (22:30)
== END 2017-12-04 23:29 | disposition home or self-care (01) ==
LOC: ER 21:37
DX: R51 Headache (principal)
CPT/HCPCS: 99284 ×2; 96374; 96375; J1885; J1200; J2765; J7030

== ENCOUNTER 2018-02-20 15:56 | Emergency (ER) | payer MEDICARE, OTHER, MEDICAID ==
--- NOTE | 2018-02-20 17:19 | Emergency Department Record ---
History of Present Illness - General Chief complaint: Pain Stated complaint: LT KNEE PAIN/SWELLING Time Seen by Provider: 02/20/18 17:18 Source: Patient Mode of Arrival: Ambulatory Limitations: No limitations - History of Present Illness Initial comments: 37 yo female presents with a left knee injury from last Tuesday. She fell out of bed and injured her knee. She has had medial knee pain since then. No deformity. She does have pain with weight bearing. Mild swelling and bruising. No other injuries. She has not been able to see her PCP for the symptoms. She does have a wheelchair at home she uses for mobility. MD Complaint: Joint pain -: Days(s) (5) Location: Left, Knee -: Yes Arthralgia Radiation: None Quality: Aching Consistency: Constant Improves with: Elevation, Immobilization Worsens with: Palpation, Weight bearing Associated Symptoms: Denies other symptoms - Related Data Previous Rx's Medication Instructions Recorded Metformin HCl [Glucophage] 1,000 mg PO BID #180 tablet 05/21/15 Allergies Allergy/AdvReac Type Severity Reaction Status Date / Time cephalexin monohydrate Allergy Intermediate throat Verified 12/04/17 22:18 [From Keflex] swelling doxycycline Allergy Intermediate VOMITING Verified 12/04/17 22:18 fluoxetine HCl [From Prozac] Allergy Intermediate HYPERSENSIT Verified 12/04/17 22:18 IVITY Sulfa (Sulfonamide Allergy Intermediate HIVES Verified 12/04/17 22:18 Antibiotics) sulfamethoxazole Allergy Intermediate HIVES Verified 12/04/17 22:18 [From Bactrim] sumatriptan succinate Allergy Intermediate TACHYCARDIA Verified 12/04/17 22:18 [From Imitrex] trimethoprim [From Bactrim] Allergy Intermediate HIVES Verified 12/04/17 22:18 topiramate [From Topamax] AdvReac DIZZINESS Verified 12/04/17 22:18 Imitrex (oral only) AdvReac Intermediate TACHYCARDIA Uncoded 12/04/17 22:18 SILK TAPE AdvReac Mild RASH Uncoded 12/04/17 22:18 Review of Systems Constitutional: Denies: Chills, Fever, Malaise, Night sweats, Weakness Eyes: Denies: Eye discharge ENT: Denies: Congestion, Throat pain Respiratory: Denies: Cough Cardiovascular: Denies: Chest pain, Palpitations, Syncope Endocrine: Denies: Fatigue Gastrointestinal: Denies: Abdominal pain, Diarrhea, Nausea, Vomiting Genitourinary: Denies: Dysuria, Urgency Musculoskeletal: Reports: As per HPI, Arthralgia. Denies: Back pain, Joint swelling, Myalgia Skin: Denies: Bruising, Change in color, Rash Neurological: Denies: Headache, Numbness, Weakness Psychiatric: Denies: Anxiety Hematological/Lymphatic: Denies: Blood Clots, Easy bleeding, Easy bruising, Swollen glands Past Medical History - SOCIAL HISTORY Smoking Status: Never smoker Drug Use: Heavy Drug Use Detail:: Marijuana, Opiates - RESPIRATORY Hx Respiratory Disorders: Yes Hx Bronchitis: Yes (2014) Hx Sleep Apnea: Yes Hx of CPAP: No (PT IS SUPPOSED TO WEAR ONE) - CARDIOVASCULAR Hx Cardio Disorders: Yes Hx Edema: Yes - NEURO Hx Neuro Disorders: Yes Hx Headaches: Yes Hx of Migraines: Yes Hx Neuropathy: Yes (BLE) Hx Seizures: Yes (high fever related as a child none since 7yrs old) - GI Hx GI Disorders: Yes Hx Abdominal Pain: Yes - Hx Genitourinary Disorders: Yes Comment:: PCOS, endometriosis in abd cavity - ENDOCRINE Hx Endocrine Disorders: Yes Hx Diabetes: Yes Hx Thyroid Disease: No - MUSCULOSKELETAL Hx Musculoskeletal Disorders: Yes Hx Gout: Yes Comment:: Bulging discs - PSYCH Hx Psych Problems: Yes Hx Anxiety: Yes (panic attacks) Hx Behavior Problems: Yes (bipolar) - HEMATOLOGY/ONCOLOGY Hx Hematology/Oncology Disorders: No Family Medical History Hx Cancer: Father, Mother, Grandparents *Cancer Comment: lung, colon, prostate, melanoma Hx Diabetes: Father, Mother, Grandparents Hx Heart Disease: Father, Mother Physical Exam - General General Appearance: Alert, Oriented x3, Cooperative, No acute distress Limitations: No limitations - Head Head exam: Normal inspection - Eye Eye exam: Normal appearance, PERRL. negative: Scleral icterus - ENT ENT exam: Normal exam Ear exam: Normal external inspection Nasal Exam: Normal inspection Mouth exam: Normal external inspection - Neck Neck exam: Normal inspection - Cardiovascular Cardiovascular Exam: Regular rate, Normal rhythm, Normal heart sounds - Rectal Rectal exam: Deferred - exam: Deferred - Extremities Extremities exam: Joint swelling (very mild left anterior medial swelling, slight bruise), Normal capillary refill, Tenderness. negative: Normal inspection, Pedal edema Image of Full Body: 1 - mild tenderness and swelling, patella midline - Back Back exam: Reports: Full ROM. Denies: CVA tenderness (R), CVA tenderness (L) - Neurological Neurological exam: Alert, Oriented X3 - Psychiatric Psychiatric exam: Normal affect, Normal mood - Skin Skin exam: Dry, Intact, Normal color, Warm Course - Reevaluation(s) Reevaluation #1: XR ordered of the left knee 02/20/18 17:47 02/20/18 18:44 The knee XR was negative for acute process We discussed the results She will follow up with her PCP for a recheck We discussed that she may need a follow up study if the pain continues Disposition Disposition: Discharge Clinical Impression: Contusion of knee, left Disposition: Home, Self-Care Condition: (1) Good Instructions: Knee Pain (ED) Additional Instructions: Ice the knee 3 times daily Use your wheel chair avoiding weight bearing Call your doctor for a recheck if the knee pain is not improving or any concerns Forms: Patient Portal Access Time of Disposition: 18:45 Quality - Quality Measures Quality Measures: Headache (All Ages) - Headache: Neuroimaging Quality Measure: Measure #419: Overuse of Neuroimaging ICD10 Codes Entered: Yes Neurological Exam: Patient had a normal neurological exam. [G9535] Headache: Use of Neuroimaging: < CTA, CT, MRA or MRI was NOT ordered > [G9534] - Blood Pressure Screening Does Patient Have Any of the Following: No Blood Pressure Classification: Normal BP Reading Systolic Measurement: 104 Diastolic Measurement: 70 Screening for High Blood Pressure: < Normal BP, F/U Not Required > [G8783]
--- NOTE | 2018-02-21 08:32 | RADIOLOGY REPORT ---
EXAM: LEFT KNEE HISTORY: KNEE PAIN. TECHNIQUE: Four views of the left knee were obtained. Comparison: None. Encounter: Initial. FINDINGS: Negative for fracture or dislocation. The soft tissues are unremarkable. The joint spaces are preserved. IMPRESSION: NEGATIVE LEFT KNEE EXAMINATION. JOB NUMBER: [id number] MTDD
== END 2018-02-20 18:59 | disposition home or self-care (01) ==
LOC: ER 15:56
DX: S80.02XA Contusion of left knee, initial encounter (principal); W06.XXXA Fall from bed, initial encounter
CPT/HCPCS: 99283

== ENCOUNTER 2018-03-27 22:00 | Emergency (ER) | payer MEDICARE, OTHER, MEDICAID ==
--- NOTE | 2018-03-27 22:18 | Emergency Department Record ---
History of Present Illness - General Chief Complaint: Headache Migraine Stated Complaint: BISHOP Time Seen by Provider: 03/27/18 22:17 Source: Patient Mode of Arrival: Ambulatory - History of Present Illness Initial Comments: The patient has her typical migraine whih began gradually two days ago. Over 4 fours ago she took her home cocktail of reglan, toradol and benadryl by mouth which didn't help. Her PCP told her to come in and get the Iv cocktail for her headache. She has no fevers, cough, sore throat. She is nauseated with dry heaves, and photophobic. Complaint: "Migraine" Onset/Timin -: Days(s) Onset Description: Gradual Location: Diffuse, Frontal, Neck Severity scale (1-10): 8 Quality: Similar to previous headaches Consistency: Constant Improves With: Rest Worsens With: Light, Noise Treatments Prior to Arrival: Migraine medication - Symptoms of Stroke Baseline State: Baseline State - Related Data Previous Rx's Medication Instructions Recorded Metformin HCl [Glucophage] 1,000 mg PO BID #180 tablet 05/21/15 Allergies Allergy/AdvReac Type Severity Reaction Status Date / Time cephalexin monohydrate Allergy Intermediate throat Verified 12/04/17 22:18 [From Keflex] swelling doxycycline Allergy Intermediate VOMITING Verified 12/04/17 22:18 fluoxetine HCl [From Prozac] Allergy Intermediate HYPERSENSIT Verified 12/04/17 22:18 IVITY Sulfa (Sulfonamide Allergy Intermediate HIVES Verified 12/04/17 22:18 Antibiotics) sulfamethoxazole Allergy Intermediate HIVES Verified 12/04/17 22:18 [From Bactrim] sumatriptan succinate Allergy Intermediate TACHYCARDIA Verified 12/04/17 22:18 [From Imitrex] trimethoprim [From Bactrim] Allergy Intermediate HIVES Verified 12/04/17 22:18 topiramate [From Topamax] AdvReac DIZZINESS Verified 12/04/17 22:18 Imitrex (oral only) AdvReac Intermediate TACHYCARDIA Uncoded 12/04/17 22:18 SILK TAPE AdvReac Mild RASH Uncoded 12/04/17 22:18 Travel Screening - Travel/Exposure Within Last 30 Days Have you traveled within the last 30 days?: No - Travel/Exposure Within Last Year Have you traveled outside the [place] in the last year?: No - Additonal Travel Details Have you been exposed to anyone with a communicable illness?: No - Travel Symptoms Symptom Screening: None Review of Systems Reviewed: No additional complaints except as noted below Constitutional: Reports: As per HPI. Denies: Chills, Fever, Malaise, Night sweats, Weakness, Weight change Eyes: Reports: As per HPI. Denies: Eye discharge, Eye pain, Photophobia, Vision change ENT: Reports: As per HPI. Denies: Congestion, Dental pain, Ear pain, Epistaxis , Hearing loss, Throat pain Respiratory: Reports: As per HPI. Denies: Cough, Dyspnea, Hemoptysis, Stridor, Wheezes Cardiovascular: Reports: As per HPI. Denies: Arrhythmia, Chest pain, Dyspnea on exertion, Edema, Murmurs, Orthopnea, Palpitations, Paroxysmal nocturnal dyspnea, Rheumatic Fever, Syncope Endocrine: Reports: As per HPI. Denies: Fatigue, Heat or cold intolerance, Polydipsia, Polyuria Gastrointestinal: Reports: As per HPI. Denies: Abdominal pain, Constipation, Diarrhea, Hematemesis, Hematochezia, Melena, Nausea, Vomiting Genitourinary: Reports: As per HPI. Denies: Abnormal menses, Discharge, Dyspareunia, Dysuria, Frequency, Hematuria, Incontinence, Retention, Urgency Musculoskeletal: Reports: As per HPI. Denies: Arthralgia, Back pain, Gout, Joint swelling, Myalgia, Neck pain Skin: Reports: As per HPI. Denies: Bruising, Change in color, Change in hair/ nails, Lesions, Pruritus, Rash Neurological: Reports: As per HPI. Denies: Abnormal gait, Confusion, Headache, Numbness, Paresthesias, Seizure, Tingling, Tremors, Vertigo, Weakness Psychiatric: Reports: As per HPI. Denies: Anxiety, Auditory hallucinations, Depression, Homicidal thoughts, Suicidal thoughts, Visual hallucinations Hematological/Lymphatic: Reports: As per HPI. Denies: Anemia, Blood Clots, Easy bleeding, Easy bruising, Swollen glands Past Medical History - SOCIAL HISTORY Smoking Status: Never smoker Alcohol Use: Rare Drug Use: Heavy Drug Use Detail:: Marijuana - RESPIRATORY Hx Respiratory Disorders: Yes Hx Bronchitis: Yes (2014) Hx Sleep Apnea: Yes Hx of CPAP: No (PT IS SUPPOSED TO WEAR ONE) - CARDIOVASCULAR Hx Cardio Disorders: Yes Hx Edema: Yes - NEURO Hx Neuro Disorders: Yes Hx Headaches: Yes Hx of Migraines: Yes Hx Neuropathy: Yes (BLE) Hx Seizures: Yes (high fever related as a child none since 7yrs old) - GI Hx GI Disorders: Yes Hx Abdominal Pain: Yes - Hx Genitourinary Disorders: Yes Comment:: PCOS, endometriosis in abd cavity - ENDOCRINE Hx Endocrine Disorders: Yes Hx Diabetes: Yes Hx Thyroid Disease: No - MUSCULOSKELETAL Hx Musculoskeletal Disorders: Yes Hx Gout: Yes Comment:: Bulging discs - PSYCH Hx Psych Problems: Yes Hx Anxiety: Yes (panic attacks) Hx Behavior Problems: Yes (bipolar) - HEMATOLOGY/ONCOLOGY Hx Hematology/Oncology Disorders: No Family Medical History Any Significant Family History?: No Hx Cancer: Father, Mother, Grandparents *Cancer Comment: lung, colon, prostate, melanoma Hx Diabetes: Father, Mother, Grandparents Hx Heart Disease: Father, Mother Physical Exam - General General Appearance: Alert, Oriented x3, Cooperative, Moderate distress - Head Head exam: Normal inspection - Eye Eye exam: Normal appearance, PERRL Pupils: Normal accommodation - ENT ENT exam: Normal exam, Mucous membranes dry, Normal external ear exam, Normal orophraynx, TM's normal bilaterally Ear exam: Normal external inspection. negative: External canal tenderness Nasal Exam: Normal inspection. negative: Discharge, Sinus tenderness Mouth exam: Normal external inspection, Tongue normal Teeth exam: Normal inspection. negative: Dental caries Throat exam: Normal inspection. negative: Tonsillar erythema, Tonsillar exudate - Neck Neck exam: Normal inspection, Full ROM. negative: Lymphadenopathy, Meningismus , Tenderness - Respiratory Respiratory exam: Normal lung sounds bilaterally. negative: Respiratory distress - Cardiovascular Cardiovascular Exam: Normal rhythm, Normal heart sounds, Tachycardia - GI/Abdominal GI/Abdominal exam: Soft, Normal bowel sounds. negative: Tenderness - Rectal Rectal exam: Deferred - exam: Deferred - Extremities Extremities exam: Normal inspection, Full ROM, Normal capillary refill. negative: Tenderness - Back Back exam: Reports: Normal inspection, Full ROM. Denies: Muscle spasm, Rash noted, Tenderness - Neurological Neurological exam: Alert, CN II-XII intact, Normal gait, Oriented X3, Reflexes normal. negative: Motor sensory deficit - Psychiatric Psychiatric exam: Normal affect, Normal mood - Skin Skin exam: Dry, Intact, Normal color, Warm Course Vital Signs 03/27/18 22:08 Temperature 97.6 F Pulse Rate [ 117 H Pulse Ox Probe] Respiratory 20 Rate Blood Pressure 109/75 [Left Arm] Pulse Ox 98 - Reevaluation(s) Reevaluation #1: the patient states her nausea has resolved, and her neck tightness has resolved , but her headache is still present. She was assisted to the bathroom. 03/27/18 23:35 Reevaluation #2: Headache is down to a 6 and she now feels ready to go home to bed. 03/28/18 00:21 Medical Decision Making - Management Options MDM Management: No Additional Work-up Planned Disposition Disposition: Discharge Clinical Impression: Migraine Qualifiers: Migraine type: without aura Status migrainosus presence: without status migrainosus Disposition: Home, Self-Care Condition: (2) Stable Instructions: Migraine Headache (ED) Additional Instructions: Home, rest. Follow up with PCP. Continue present meds. Quality - Quality Measures Quality Measures: Headache (All Ages) - Headache: Neuroimaging Quality Measure: Measure #419: Overuse of Neuroimaging ICD10 Codes Entered: Yes Neurological Exam: Patient had a normal neurological exam. [G9535] Headache: Use of Neuroimaging: < CTA, CT, MRA or MRI was NOT ordered > [G9534] - Blood Pressure Screening Does Patient Have Any of the Following: No Blood Pressure Classification: Normal BP Reading Systolic Measurement: 109 Diastolic Measurement: 75 Screening for High Blood Pressure: < Normal BP, F/U Not Required > [G8783]
[2018-03-27] MEDS ORDERED: METOCLOPRAMIDE HCL 10 MG/2 ML VIAL IVP ONE (22:29)
[2018-03-27] MEDS ORDERED: 0.9 % SODIUM CHLORIDE 1,000 ML BAG IV ONE (22:29)
[2018-03-27] MEDS ORDERED: DIPHENHYDRAMINE HCL 50 MG/ML VIAL IVP ONE (22:30)
[2018-03-27] MEDS ORDERED: KETOROLAC 30 MG/ML VIAL IVP ONE (22:30)
[2018-03-27] MEDS ORDERED: ORPHENADRINE CITRATE 60MG/2ML VIAL IVP ONE (22:31)
== END 2018-03-28 00:35 | disposition home or self-care (01) ==
LOC: ER 22:00
DX: G43.009 Migraine without aura, not intractable, without status migrainosus (principal); R11.0 Nausea; H53.149 Visual discomfort, unspecified
CPT/HCPCS: 99284 ×2; 96374; 96375; J1885; J1200; J2360; J2765

== ENCOUNTER 2018-03-29 00:46 | Emergency (ER) | payer MEDICARE, OTHER, MEDICAID ==
[2018-03-29] MEDS ORDERED: DIPHENHYDRAMINE HCL 50 MG/ML VIAL IVP ONE (01:08)
[2018-03-29] MEDS ORDERED: KETOROLAC 30 MG/ML VIAL IVP ONE (01:08)
[2018-03-29] MEDS ORDERED: PROMETHAZINE HCL 12.5 MG in 0.9 % SODIUM CHLORIDE 100ML 100 ML IVPB ONE (01:08)
--- NOTE | 2018-03-29 01:28 | Emergency Department Record ---
History of Present Illness - General Chief Complaint: Headache Migraine Stated Complaint: MIGRAIN,FEVER,NECK PAIN Time Seen by Provider: 03/29/18 00:48 Source: Patient Mode of Arrival: Ambulatory Limitations: No limitations - History of Present Illness Initial Comments: 37 yo female presents to ED for re-evaluation of her typical migraine headache symptoms following treatment in ED last night. Patient reports neck "stiffness " that occurs with her typical migraine headaches, but also reports fever of 100.4 at home earlier tonight. Patient reports taking Acetaminophen prior to arrival to the ED. Patient denies urinary symptoms, rash, cough, or sore throat symptoms on examination. Patient does report photophobia related to her headache symptoms. MD Complaint: Headache Onset/Timin -: Days(s) Onset Description: Gradual Location: Diffuse Severity: Severe Severity scale (1-10): 8 Quality: Similar to previous headaches Consistency: Constant Improves With: Medication Worsens With: Movement of head/neck Associated Symptoms: Fever, Neck stiffness Treatments Prior to Arrival: Acetaminophen - Related Data Previous Rx's Medication Instructions Recorded Metformin HCl [Glucophage] 1,000 mg PO BID #180 tablet 05/21/15 Allergies Allergy/AdvReac Type Severity Reaction Status Date / Time cephalexin monohydrate Allergy Intermediate throat Verified 12/04/17 22:18 [From Keflex] swelling doxycycline Allergy Intermediate VOMITING Verified 12/04/17 22:18 fluoxetine HCl [From Prozac] Allergy Intermediate HYPERSENSIT Verified 12/04/17 22:18 IVITY Sulfa (Sulfonamide Allergy Intermediate HIVES Verified 12/04/17 22:18 Antibiotics) sulfamethoxazole Allergy Intermediate HIVES Verified 12/04/17 22:18 [From Bactrim] sumatriptan succinate Allergy Intermediate TACHYCARDIA Verified 12/04/17 22:18 [From Imitrex] trimethoprim [From Bactrim] Allergy Intermediate HIVES Verified 12/04/17 22:18 topiramate [From Topamax] AdvReac DIZZINESS Verified 12/04/17 22:18 Imitrex (oral only) AdvReac Intermediate TACHYCARDIA Uncoded 12/04/17 22:18 SILK TAPE AdvReac Mild RASH Uncoded 12/04/17 22:18 Travel Screening - Travel/Exposure Within Last 30 Days Have you traveled within the last 30 days?: No - Travel Symptoms Symptom Screening: None Review of Systems Constitutional: Reports: Fever. Denies: Chills, Malaise, Night sweats Eyes: Denies: Eye discharge, Eye pain ENT: Denies: Congestion, Ear pain, Epistaxis Respiratory: Denies: Cough, Dyspnea Cardiovascular: Denies: Chest pain, Dyspnea on exertion Endocrine: Denies: Fatigue, Heat or cold intolerance Gastrointestinal: Denies: Abdominal pain, Nausea, Vomiting Genitourinary: Denies: Incontinence, Retention Musculoskeletal: Reports: Neck pain. Denies: Arthralgia, Back pain, Gout, Joint swelling Skin: Denies: Bruising, Change in color Neurological: Reports: Headache. Denies: Abnormal gait, Confusion, Seizure Psychiatric: Denies: Anxiety Hematological/Lymphatic: Denies: Anemia, Blood Clots Past Medical History - SOCIAL HISTORY Smoking Status: Never smoker Alcohol Use: None Drug Use: None - RESPIRATORY Hx Respiratory Disorders: Yes Hx Bronchitis: Yes (2015) Hx Sleep Apnea: Yes Hx of CPAP: No (PT IS SUPPOSED TO WEAR ONE) - CARDIOVASCULAR Hx Cardio Disorders: Yes Hx Edema: Yes - NEURO Hx Neuro Disorders: Yes Hx Headaches: Yes Hx of Migraines: Yes Hx Neuropathy: Yes (BLE) Hx Seizures: Yes (high fever related as a child none since 7yrs old) - GI Hx GI Disorders: Yes Hx Abdominal Pain: Yes - Hx Genitourinary Disorders: Yes Comment:: PCOS, endometriosis in abd cavity - ENDOCRINE Hx Endocrine Disorders: Yes Hx Diabetes: Yes Hx Thyroid Disease: No - MUSCULOSKELETAL Hx Musculoskeletal Disorders: Yes Hx Gout: Yes Comment:: Bulging discs - PSYCH Hx Psych Problems: Yes Hx Anxiety: Yes (panic attacks) Hx Behavior Problems: Yes (bipolar) - HEMATOLOGY/ONCOLOGY Hx Hematology/Oncology Disorders: No Family Medical History Any Significant Family History?: Yes Hx Cancer: Father, Mother, Grandparents *Cancer Comment: lung, colon, prostate, melanoma Hx Diabetes: Father, Mother, Grandparents Hx Heart Disease: Father, Mother Physical Exam - General General Appearance: Alert, Oriented x3, Cooperative, Mild distress, Other ( Patient is well appearing, conversational without meningeal signs on examination.) Limitations: No limitations - Head Head exam: Atraumatic, Normocephalic, Normal inspection Head exam detail: negative: Abrasion, Contusion, Marcelino's sign, General tenderness, Hematoma, Laceration - Eye Eye exam: Normal appearance. negative: Conjunctival injection, Periorbital swelling, Periorbital tenderness, Scleral icterus - ENT Ear exam: negative: Auricular hematoma, Auricular trauma Nasal Exam: negative: Active bleeding, Discharge, Dried blood, Foreign body Mouth exam: negative: Drooling, Laceration, Muffled voice, Tongue elevation - Neck Neck exam: Normal inspection, Other (No meningeal signs on examination.). negative: Meningismus, Tenderness - Respiratory Respiratory exam: Normal lung sounds bilaterally. negative: Rales, Respiratory distress, Rhonchi, Stridor - Cardiovascular Cardiovascular Exam: Regular rate, Normal rhythm, Normal heart sounds - GI/Abdominal GI/Abdominal exam: Soft. negative: Rebound, Rigid, Tenderness - Rectal Rectal exam: Deferred - exam: Deferred - Extremities Extremities exam: Normal inspection. negative: Pedal edema, Tenderness - Back Back exam: Denies: CVA tenderness (R), CVA tenderness (L) - Neurological Neurological exam: Alert, Normal gait, Oriented X3 - Psychiatric Psychiatric exam: Normal affect, Normal mood - Skin Skin exam: Normal color. negative: Abrasion Type of lesion: negative: abrasion Course Vital Signs 03/29/18 00:57 Temperature 99.0 F Pulse Rate [ 91 H Pulse Ox Probe] Respiratory 18 Rate Blood Pressure 119/81 [Left Arm] Pulse Ox 98 - Reevaluation(s) Reevaluation #1: 03/29/18 01:29 On initial examination, I discussed the concern for possible meningitis given the patient's fever symptoms, headache, and "neck stiffness". Risk of missed diagnosis resulting in worsening of her condition, permanent impairment, and were discussed vs. the benefit of diagnosis and treatment of possible meningitis. Risks of bleeding, infection, and post LP headache were also discussed. Patient verbalizes understanding of all risks and benefits and would like to proceed with the procedure as discussed. Will obtain laboratory studies and CT imaging to exclude other headache causes prior to performing the procedure. Reevaluation #2: 03/29/18 02:14 Labs reviewed, Glucose 326, labs are otherwise grossly unremarkable for an acute process. Reevaluation #3: 03/29/18 02:23 CT Brain negative. Reevaluation #4: 03/29/18 02:46 Patient was updated on all results, reports that her headache symptoms are improved following Toradol, Benadryl, and Phenergan. I discussed LP with the patient again, she continues to show NO meningeal signs on examination. Patient was counseled about the possibility of meningitis as she is diabetic and the only way to diagnosis the disease is via LP, patient again declined LP as she no longer febrile and feeling better. Patient also continues to deny any other source for her fever symptoms at home. Patient also verbalizes understanding that not performing LP at this time could delay the diagnosis. Patient reports that she agrees to return to ED if her symptoms worsen. Medical Decision Making - Lab Data Result diagrams: 03/29/18 01:30 03/29/18 01:30 Disposition Disposition: Discharge Clinical Impression: Headache Qualifiers: Headache type: unspecified Headache chronicity pattern: acute headache Intractability: not intractable Qualified Code(s): R51 - Headache Disposition: Home, Self-Care Condition: (2) Stable Instructions: Acute Headache (ED) Additional Instructions: Return to ED if your symptoms worsen or if you have any concerns. Follow-up with your family doctor in 3-5 days as directed. Forms: Patient Portal Access Time of Disposition: 02:45 Quality - Quality Measures Quality Measures: Headache (All Ages) - Headache: Neuroimaging Quality Measure: Measure #419: Overuse of Neuroimaging ICD10 Codes Entered: Yes Neurological Exam: Patient had a normal neurological exam. [G9535] Headache: Use of Neuroimaging: CTA, CT, MRA or MRI Ordered w/Medical Reason [ G9536] Medical Reason for Exam: Change in Type of Headache - Blood Pressure Screening Does Patient Have Any of the Following: No Blood Pressure Classification: Normal BP Reading Systolic Measurement: 108 Diastolic Measurement: 79 Screening for High Blood Pressure: < Normal BP, F/U Not Required > [G8783]
[2018-03-29 01:44] LABS: BASO % 0.2 % (0-6); EOS % 5.4 % (0-6); HEMATOCRIT 40.1 % (35.0-47.0); HEMOGLOBIN 13.6 gm/dl (11.6-16.0); LYMPH % 34.5 % (16-45); MEAN CELL VOLUME 89.5 fl (81-97); MEAN CORPUSCULAR HEMOGLOBIN 30.4 pg (27-33); MEAN CORPUSCULAR HGB CONC 33.9 g/dl (32-36); MEAN PLATELET VOLUME 11.5 fl (7.4-10.4); MONO % 5.9 % (0-9); PLATELET COUNT 193 K/uL (130-400); RED BLOOD COUNT 4.48 M/uL (3.80-5.40); RED CELL DISTRIBUTION WIDTH 14.9 % (11.5-14.5); WHITE BLOOD COUNT W/O DIFF 8.4 K/uL (4.2-12.2)
[2018-03-29 02:00] LABS: BLOOD UREA NITROGEN 18 mg/dL (6-20); CREATININE 0.7 mg/dL (0.5-0.9); EST GLOMERULAR FILTRATION RATE > 60 mL/min
[2018-03-29 02:01] LABS: TOTAL PROTEIN 7.6 g/dL (6.6-8.7)
[2018-03-29 02:03] LABS: GLUCOSE,RANDOM 326 mg/dL (74-109)
[2018-03-29 02:05] LABS: ALB/GLOB RATIO 1.2 (1.1-1.8); ALBUMIN 4.2 g/dL (4.0-5.0); ALT/SGPT 31 U/L (<33); AST/SGOT 21 U/L (10.0-35.0)
[2018-03-29 02:06] LABS: ALKALINE PHOSPHATASE 105 U/L (35-104)
--- NOTE | 2018-03-30 10:49 | CT SCAN REPORT ---
EXAM: CT OF THE BRAIN HISTORY: MIGRAINE. TECHNIQUE: CT of the brain without contrast was obtained. Comparison: None. FINDINGS: The globes are intact. Polyps of the maxillary sinuses. No displaced or depressed skull fracture. No intra or extraaxial hemorrhage. CT is limited for the evaluation of acute infarct. There is no CT evidence for large or territorial acute infarct. No mass or midline shift. The vivas white matter differentiation is preserved. IMPRESSION: POLYPS OF THE MAXILLARY SINUSES BILATERALLY. THE REMAINDER IS UNREMARKABLE. JOB NUMBER: [id number] [facility]
== END 2018-03-29 02:58 | disposition home or self-care (01) ==
LOC: ER 00:46
DX: R51 Headache (principal); M43.6 Torticollis; R50.9 Fever, unspecified; E11.9 Type 2 diabetes mellitus without complications; H53.149 Visual discomfort, unspecified; Z79.84 Long term (current) use of oral hypoglycemic drugs
CPT/HCPCS: 99284 ×2; 96365; 96375; 85025; 80053; 70450; J1885; J1200; J2550

== ENCOUNTER 2018-05-19 16:00 | Emergency (ER) | payer MEDICARE, OTHER, MEDICAID ==
--- NOTE | 2018-05-19 16:16 | Emergency Department Record ---
History of Present Illness - General Stated Complaint: FELL DOWN STAIRS/BOTH KNEE PAIN/RT SHOULDER PAIN Time Seen by Provider: 05/19/18 16:10 Source: Patient Mode of Arrival: Ambulatory Limitations: No limitations - History of Present Illness Initial Comments: 38 yo female presents after a fall early this morning. Her dog was on it's leash and pulled her down. She landed on her right shoulder and both knees. She has been ambulatory throughout the day but with pain. Intact skin. No head injury. No neck pain. No other joint pain. She was at [facility] this afternoon so she decided to get the persistent pain checked out. MD Complaint: Fall -: Hour(s) (12) Fall From: Standing When Fall Occurred: Other (12 hours) Fall Witnessed: No Place Fall Occurred: Home Loss of Consciousness: None Prolonged Down Time?: No Symptoms Prior to Fall: None Location - Extremities: Left: Knee, Right: Shoulder, Knee Severity: Moderate Quality: Aching Context: Other Associated Symptoms: Denies - [place] Scale Eye Response: (4) Open spontaneously Motor Response: (6) Obeys commands Verbal Response: (5) Oriented [place] Total: 15 - Related Data Previous Rx's Medication Instructions Recorded Metformin HCl [Glucophage] 1,000 mg PO BID #180 tablet 05/21/15 Allergies Allergy/AdvReac Type Severity Reaction Status Date / Time cephalexin monohydrate Allergy Intermediate throat Verified 12/04/17 22:18 [From Keflex] swelling doxycycline Allergy Intermediate VOMITING Verified 12/04/17 22:18 fluoxetine HCl [From Prozac] Allergy Intermediate HYPERSENSIT Verified 12/04/17 22:18 IVITY Sulfa (Sulfonamide Allergy Intermediate HIVES Verified 12/04/17 22:18 Antibiotics) sulfamethoxazole Allergy Intermediate HIVES Verified 12/04/17 22:18 [From Bactrim] sumatriptan succinate Allergy Intermediate TACHYCARDIA Verified 12/04/17 22:18 [From Imitrex] trimethoprim [From Bactrim] Allergy Intermediate HIVES Verified 12/04/17 22:18 topiramate [From Topamax] AdvReac DIZZINESS Verified 12/04/17 22:18 Imitrex (oral only) AdvReac Intermediate TACHYCARDIA Uncoded 12/04/17 22:18 SILK TAPE AdvReac Mild RASH Uncoded 12/04/17 22:18 Review of Systems Constitutional: Denies: Chills, Fever, Malaise, Weakness Eyes: Denies: Eye discharge ENT: Denies: Congestion, Throat pain Respiratory: Denies: Cough Cardiovascular: Denies: Chest pain, Palpitations, Syncope Endocrine: Denies: Fatigue, Polydipsia, Polyuria Gastrointestinal: Denies: Abdominal pain, Diarrhea, Nausea, Vomiting Genitourinary: Denies: Dysuria, Urgency Musculoskeletal: Reports: As per HPI, Arthralgia, Myalgia. Denies: Back pain, Joint swelling, Neck pain Skin: Denies: Bruising, Change in color, Rash Neurological: Denies: Confusion, Headache, Numbness, Tingling, Tremors, Vertigo , Weakness Psychiatric: Denies: Anxiety Hematological/Lymphatic: Denies: Easy bleeding, Easy bruising, Swollen glands Past Medical History - SOCIAL HISTORY Smoking Status: Never smoker Drug Use: None - RESPIRATORY Hx Respiratory Disorders: Yes Hx Bronchitis: Yes (2015) Hx Sleep Apnea: Yes Hx of CPAP: No (PT IS SUPPOSED TO WEAR ONE) - CARDIOVASCULAR Hx Cardio Disorders: Yes Hx Edema: Yes - NEURO Hx Neuro Disorders: Yes Hx Headaches: Yes Hx of Migraines: Yes Hx Neuropathy: Yes (BLE) Hx Seizures: Yes (high fever related as a child none since 7yrs old) - GI Hx GI Disorders: Yes Hx Abdominal Pain: Yes - Hx Genitourinary Disorders: Yes Comment:: PCOS, endometriosis in abd cavity - ENDOCRINE Hx Endocrine Disorders: Yes Hx Diabetes: Yes Hx Thyroid Disease: No - MUSCULOSKELETAL Hx Musculoskeletal Disorders: Yes Hx Gout: Yes Comment:: Bulging discs - PSYCH Hx Psych Problems: Yes Hx Anxiety: Yes (panic attacks) Hx Behavior Problems: Yes (bipolar) - HEMATOLOGY/ONCOLOGY Hx Hematology/Oncology Disorders: No Family Medical History Hx Cancer: Father, Mother, Grandparents *Cancer Comment: lung, colon, prostate, melanoma Hx Diabetes: Father, Mother, Grandparents Hx Heart Disease: Father, Mother Physical Exam - General General Appearance: Alert, Oriented x3, Cooperative, No acute distress Limitations: No limitations - Head Head exam: Atraumatic, Normocephalic, Normal inspection Head exam detail: negative: Abrasion, Contusion, Hematoma - Eye Eye exam: Normal appearance, PERRL. negative: Conjunctival injection, Scleral icterus - ENT ENT exam: Normal exam, Mucous membranes moist Ear exam: Normal external inspection Nasal Exam: Normal inspection Mouth exam: Normal external inspection - Neck Neck exam: Normal inspection - Respiratory Respiratory exam: Normal lung sounds bilaterally. negative: Respiratory distress - Cardiovascular Cardiovascular Exam: Regular rate, Normal rhythm, Normal heart sounds - GI/Abdominal GI/Abdominal exam: Soft. negative: Tenderness - Rectal Rectal exam: Deferred - exam: Deferred - Extremities Extremities exam: Normal inspection, Full ROM, Normal capillary refill, Tenderness. negative: Joint swelling Image of Full Body: 1 - full ROM but tender to palpation anterior 2 - normal inspection, tender medial knee, intact skin 3 - tender medial knee, intact skin, no swelling or bruising - Back Back exam: Reports: Normal inspection, Full ROM. Denies: CVA tenderness (R), CVA tenderness (L), Paraspinal tenderness, Tenderness, Vertebral tenderness - Neurological Neurological exam: Alert, Normal gait, Oriented X3 - Psychiatric Psychiatric exam: Normal affect, Normal mood - Skin Skin exam: Dry, Intact, Normal color, Warm Course - Reevaluation(s) Reevaluation #1: 05/19/18 17:05 The XR's of the shoulder and bilateral knees are negative for acute injury Disposition Disposition: Discharge Clinical Impression: Shoulder sprain, Knee sprain, bilateral Disposition: Home, Self-Care Condition: (1) Good Instructions: Shoulder Sprain (ED), Knee Sprain (ED) Additional Instructions: Use ice on any sore areas Rest avoiding walking and weight bearing Call your doctor for close follow up and to recheck any sore areas Time of Disposition: 17:06 Quality - Quality Measures Quality Measures: N/A, Headache (All Ages) - Headache: Neuroimaging Quality Measure: Measure #419: Overuse of Neuroimaging ICD10 Codes Entered: Yes Neurological Exam: Patient had a normal neurological exam. [G9535] Headache: Use of Neuroimaging: < CTA, CT, MRA or MRI was NOT ordered > [G9534] - Blood Pressure Screening Does Patient Have Any of the Following: Active Dx of HTN Blood Pressure Classification: Pre-Hypertensive BP Reading Systolic Measurement: 133 Diastolic Measurement: 77 Screening for High Blood Pressure: Patient Exclusion, Hx of HTN [G1741]
--- NOTE | 2018-05-21 14:40 | RADIOLOGY REPORT ---
EXAM: KNEE, LEFT 4 VIEWS HISTORY: KNEE PAIN. TECHNIQUE: Four-view left knee. COMPARISON: None. FINDINGS: Negative for fracture or dislocation. Soft tissues are unremarkable. IMPRESSION: NEGATIVE EXAM. JOB NUMBER: [id number] [facility]
--- NOTE | 2018-05-21 14:42 | RADIOLOGY REPORT ---
EXAM: KNEE, RIGHT 4 VIEWS HISTORY: PAIN. TECHNIQUE: Four-view right knee. COMPARISON: None. FINDINGS: Negative for fracture or dislocation. Soft tissues are unremarkable. Joint spaces are preserved. IMPRESSION: NEGATIVE EXAM. JOB NUMBER: [id number] [facility]
--- NOTE | 2018-05-21 14:43 | RADIOLOGY REPORT ---
EXAM: SHOULDER, RIGHT HISTORY: FALL. TECHNIQUE: Three-view right shoulder. COMPARISON: None. FINDINGS: No evidence for an acute fracture or dislocation. Soft tissues are unremarkable. IMPRESSION: NEGATIVE EXAM. JOB NUMBER: [id number] [facility]
== END 2018-05-19 17:24 | disposition home or self-care (01) ==
LOC: ER 16:00
DX: S43.401A Unspecified sprain of right shoulder joint, initial encounter (principal); S83.92XA Sprain of unspecified site of left knee, initial encounter; S83.91XA Sprain of unspecified site of right knee, initial encounter; R51 Headache; E11.9 Type 2 diabetes mellitus without complications; Z79.84 Long term (current) use of oral hypoglycemic drugs; I10 Essential (primary) hypertension; W10.9XXA Fall (on) (from) unspecified stairs and steps, initial encounter; Y92.009 Unspecified place in unspecified non-institutional (private) residence as the place of occurrence of the external cause
CPT/HCPCS: 99283; 99284

== ENCOUNTER 2018-06-26 21:51 | Emergency (ER) | payer MEDICARE, OTHER, MEDICAID ==
[2018-06-26] MEDS ORDERED: METOCLOPRAMIDE HCL 10 MG/2 ML VIAL IVP ONE (22:08)
[2018-06-26] MEDS ORDERED: DIPHENHYDRAMINE HCL 50 MG/ML VIAL IVP ONE (22:08)
[2018-06-26] MEDS ORDERED: KETOROLAC 30 MG/ML VIAL IVP ONE (22:08)
[2018-06-26] MEDS ORDERED: 0.9 % SODIUM CHLORIDE 1000ML 1,000 ML IV SCH (22:15)
--- NOTE | 2018-06-26 22:26 | Emergency Department Record ---
History of Present Illness - General Chief Complaint: Headache Migraine Stated Complaint: MIGRAINE Time Seen by Provider: 06/26/18 21:54 Source: Patient Mode of Arrival: Ambulatory Limitations: No limitations - History of Present Illness Initial Comments: 38 yo female presents to ED for evaluation of a "migraine headache" that began 3 days ago. Patient reports taking her home medications without improvement in her symptoms. Patient reports that her headache symptoms are similar to previous episodes, denies fevers, chills, neck stiffness, or use of anticoagulation medications at her baseline. MD Complaint: Headache Onset/Timin -: Days(s) Onset Description: Gradual Location: Frontal Severity: Moderate Severity scale (1-10): 8 Quality: Similar to previous headaches Consistency: Constant, Getting worse Improves With: Nothing Worsens With: None Context: Other Associated Symptoms: Photophobia Other Symptoms: Other Treatments Prior to Arrival: Migraine medication, Prescription analgesic, Other - Related Data Previous Rx's Medication Instructions Recorded Metformin HCl [Glucophage] 1,000 mg PO BID #180 tablet 05/21/15 Allergies Allergy/AdvReac Type Severity Reaction Status Date / Time cephalexin monohydrate Allergy Intermediate throat Unverified 05/30/18 15:46 [From Keflex] swelling doxycycline Allergy Intermediate VOMITING Unverified 05/30/18 15:46 fluoxetine HCl [From Prozac] Allergy Intermediate HYPERSENSIT Unverified 15:46 IVITY Sulfa (Sulfonamide Allergy Intermediate HIVES Unverified 05/30/18 15:46 Antibiotics) sulfamethoxazole Allergy Intermediate HIVES Unverified 05/30/18 15:46 [From Bactrim] sumatriptan succinate Allergy Intermediate TACHYCARDIA Unverified 05/30/18 15:46 [From Imitrex] trimethoprim [From Bactrim] Allergy Intermediate HIVES Unverified 05/30/18 15:46 topiramate [From Topamax] AdvReac DIZZINESS Unverified 05/30/18 15:46 Imitrex (oral only) AdvReac Intermediate TACHYCARDIA Uncoded 12/04/17 22:18 SILK TAPE AdvReac Mild RASH Uncoded 12/04/17 22:18 Travel Screening - Travel/Exposure Within Last 30 Days Have you traveled within the last 30 days?: No - Travel Symptoms Symptom Screening: Headache Review of Systems Constitutional: Denies: Chills, Fever, Malaise, Night sweats Eyes: Denies: Eye discharge, Eye pain ENT: Denies: Congestion, Ear pain, Epistaxis Respiratory: Denies: Cough, Dyspnea Cardiovascular: Denies: Chest pain, Dyspnea on exertion Endocrine: Denies: Fatigue, Heat or cold intolerance Gastrointestinal: Denies: Abdominal pain, Nausea, Vomiting Genitourinary: Denies: Incontinence, Retention Musculoskeletal: Denies: Arthralgia, Back pain Skin: Denies: Bruising, Change in color Neurological: Reports: Headache. Denies: Abnormal gait, Confusion, Seizure Psychiatric: Denies: Anxiety Hematological/Lymphatic: Denies: Anemia, Blood Clots Past Medical History - SOCIAL HISTORY Smoking Status: Never smoker Alcohol Use: None Drug Use: Occasional Drug Use Detail:: Marijuana - RESPIRATORY Hx Respiratory Disorders: Yes Hx Bronchitis: Yes (2015) Hx Sleep Apnea: Yes Hx of CPAP: No (PT IS SUPPOSED TO WEAR ONE) - CARDIOVASCULAR Hx Cardio Disorders: Yes Hx Edema: Yes - NEURO Hx Neuro Disorders: Yes Hx Headaches: Yes Hx of Migraines: Yes Hx Neuropathy: Yes (BLE) Hx Seizures: Yes (high fever related as a child none since 7yrs old) - GI Hx GI Disorders: Yes Hx Abdominal Pain: Yes - Hx Genitourinary Disorders: Yes Comment:: PCOS, endometriosis in abd cavity - ENDOCRINE Hx Endocrine Disorders: Yes Hx Diabetes: Yes Hx Thyroid Disease: No - MUSCULOSKELETAL Hx Musculoskeletal Disorders: Yes Hx Gout: Yes Comment:: Bulging discs - PSYCH Hx Psych Problems: Yes Hx Anxiety: Yes (panic attacks) Hx Behavior Problems: Yes (bipolar) - HEMATOLOGY/ONCOLOGY Hx Hematology/Oncology Disorders: No Family Medical History Any Significant Family History?: Yes Hx Cancer: Father, Mother, Grandparents *Cancer Comment: lung, colon, prostate, melanoma Hx Diabetes: Father, Mother, Grandparents Hx Heart Disease: Father, Mother Physical Exam - General General Appearance: Alert, Oriented x3, Cooperative, Moderate distress Limitations: No limitations - Head Head exam: Atraumatic, Normocephalic, Normal inspection Head exam detail: negative: Abrasion, Contusion, Marcelino's sign, General tenderness, Hematoma, Laceration - Eye Eye exam: Normal appearance. negative: Conjunctival injection, Periorbital swelling, Periorbital tenderness, Scleral icterus - ENT Ear exam: negative: Auricular hematoma, Auricular trauma Nasal Exam: negative: Active bleeding, Discharge, Dried blood, Foreign body Mouth exam: negative: Drooling, Laceration, Muffled voice, Tongue elevation - Neck Neck exam: Normal inspection. negative: Meningismus, Tenderness - Respiratory Respiratory exam: Normal lung sounds bilaterally. negative: Rales, Respiratory distress, Rhonchi, Stridor - Cardiovascular Cardiovascular Exam: Regular rate, Normal rhythm, Normal heart sounds - GI/Abdominal GI/Abdominal exam: Soft. negative: Rebound, Rigid, Tenderness - Rectal Rectal exam: Deferred - exam: Deferred - Extremities Extremities exam: Normal inspection. negative: Calf tenderness, Pedal edema, Tenderness - Back Back exam: Denies: CVA tenderness (R), CVA tenderness (L) - Neurological Neurological exam: Alert, Normal gait, Oriented X3 - Psychiatric Psychiatric exam: Normal affect, Normal mood - Skin Skin exam: Normal color. negative: Abrasion Type of lesion: negative: abrasion Course Vital Signs 06/26/18 21:58 Pulse Rate 94 H Respiratory 20 Rate Blood Pressure 129/81 Pulse Ox 96 - Reevaluation(s) Reevaluation #1: 06/26/18 23:08 Patient reassessed, reports that her headache symptoms are significantly improved. Patient reports that she feels well and would like to go home at this time. Disposition Disposition: Discharge Clinical Impression: Headache Qualifiers: Headache type: unspecified Headache chronicity pattern: acute headache Intractability: not intractable Qualified Code(s): R51 - Headache Disposition: Home, Self-Care Condition: (2) Stable Instructions: Acute Headache (ED) Additional Instructions: Return to ED if your symptoms worsen or if you have any concerns. Follow-up with your family doctor in 3-5 days as directed. Forms: Patient Portal Access Time of Disposition: 23:10 Quality - Quality Measures Quality Measures: Headache (All Ages) - Headache: Neuroimaging Quality Measure: Measure #419: Overuse of Neuroimaging ICD10 Codes Entered: Yes Neurological Exam: Patient had a normal neurological exam. [G9535] Headache: Use of Neuroimaging: < CTA, CT, MRA or MRI was NOT ordered > [G9534] - Blood Pressure Screening Does Patient Have Any of the Following: No Blood Pressure Classification: Pre-Hypertensive BP Reading Systolic Measurement: 129 Diastolic Measurement: 81 Screening for High Blood Pressure: < Pre-Hypertensive BP, F/U Documented > [ G8950] Pre-Hypertensive Follow-up Interventions: Referral to alternative/primary care provider.
== END 2018-06-26 23:15 | disposition home or self-care (01) ==
LOC: ER 21:51
DX: R51 Headache (principal); H53.149 Visual discomfort, unspecified; E11.9 Type 2 diabetes mellitus without complications; Z79.4 Long term (current) use of insulin
CPT/HCPCS: 99284 ×2; 96374; 96375; J1885; J1200; J2765; J7030

== ENCOUNTER 2018-07-01 22:18 | Emergency (ER) | payer MEDICARE, OTHER, MEDICAID ==
[2018-07-01] MEDS ORDERED: METOCLOPRAMIDE HCL 10 MG/2 ML VIAL IVP ONE (22:22)
[2018-07-01] MEDS ORDERED: DIPHENHYDRAMINE HCL 50 MG/ML VIAL IVP ONE (22:22)
[2018-07-01] MEDS ORDERED: KETOROLAC 30 MG/ML VIAL IVP ONE (22:22)
[2018-07-01] MEDS ORDERED: 0.9 % SODIUM CHLORIDE 1000ML 1,000 ML IV SCH (22:30)
--- NOTE | 2018-07-01 22:32 | Emergency Department Record ---
History of Present Illness - General Chief Complaint: Headache Migraine Stated Complaint: BISHOP Time Seen by Provider: 07/01/18 22:19 Source: Patient Mode of Arrival: Ambulatory Limitations: No limitations - History of Present Illness Initial Comments: 38 yo female presents to ED for evaluation or recurrent headache symptoms. Patient denies fevers, chills, or neck stiffness symptoms, and reports that her headache symptoms are similar to previous headache episodes. Patient denies nausea/vomiting symptoms as well. Patient reports taking Toradol for her pain symptoms without significantly improvement. MD Complaint: Headache Onset/Timin -: Days(s) Onset Description: Gradual Location: Retro-orbital Severity: Moderate Quality: Throbbing, Similar to previous headaches Consistency: Constant Improves With: Nothing Worsens With: Light Associated Symptoms: Nausea, Photophobia Treatments Prior to Arrival: Antiemetic, Migraine medication, Prescription analgesic - Related Data Previous Rx's Medication Instructions Recorded Metformin HCl [Glucophage] 1,000 mg PO BID #180 tablet 05/21/15 Allergies Allergy/AdvReac Type Severity Reaction Status Date / Time cephalexin monohydrate Allergy Intermediate throat Verified 07/01/18 22:29 [From Keflex] swelling doxycycline Allergy Intermediate VOMITING Verified 07/01/18 22:29 fluoxetine HCl [From Prozac] Allergy Intermediate HYPERSENSIT Verified 07/01/18 22:29 IVITY Sulfa (Sulfonamide Allergy Intermediate HIVES Verified 07/01/18 22:29 Antibiotics) sulfamethoxazole Allergy Intermediate HIVES Verified 07/01/18 22:29 [From Bactrim] sumatriptan succinate Allergy Intermediate TACHYCARDIA Verified 07/01/18 22:29 [From Imitrex] trimethoprim [From Bactrim] Allergy Intermediate HIVES Verified 07/01/18 22:29 topiramate [From Topamax] AdvReac DIZZINESS Verified 07/01/18 22:29 Imitrex (oral only) AdvReac Intermediate TACHYCARDIA Uncoded 12/04/17 22:18 SILK TAPE AdvReac Mild RASH Uncoded 12/04/17 22:18 Travel Screening - Travel/Exposure Within Last 30 Days Have you traveled within the last 30 days?: No - Travel/Exposure Within Last Year Have you traveled outside the [place] in the last year?: No - Additonal Travel Details Have you been exposed to anyone with a communicable illness?: No - Travel Symptoms Symptom Screening: None Review of Systems Constitutional: Denies: Chills, Fever, Malaise, Night sweats Eyes: Denies: Eye discharge, Eye pain ENT: Denies: Congestion, Ear pain Respiratory: Denies: Cough, Dyspnea Cardiovascular: Denies: Chest pain, Dyspnea on exertion Endocrine: Denies: Fatigue, Heat or cold intolerance Gastrointestinal: Reports: Nausea. Denies: Abdominal pain, Vomiting Genitourinary: Denies: Incontinence, Retention Musculoskeletal: Denies: Arthralgia, Back pain Skin: Denies: Bruising, Change in color Neurological: Reports: Headache. Denies: Abnormal gait, Confusion, Seizure Psychiatric: Denies: Anxiety Hematological/Lymphatic: Denies: Anemia, Blood Clots Past Medical History - SOCIAL HISTORY Smoking Status: Never smoker Alcohol Use: None Drug Use Detail:: Marijuana - RESPIRATORY Hx Respiratory Disorders: Yes Hx Bronchitis: Yes (2015) Hx Sleep Apnea: Yes Hx of CPAP: No (PT IS SUPPOSED TO WEAR ONE) - CARDIOVASCULAR Hx Cardio Disorders: Yes Hx Edema: Yes - NEURO Hx Neuro Disorders: Yes Hx Headaches: Yes Hx of Migraines: Yes Hx Neuropathy: Yes (BLE) Hx Seizures: Yes (high fever related as a child none since 7yrs old) - GI Hx GI Disorders: Yes Hx Abdominal Pain: Yes - Hx Genitourinary Disorders: Yes Comment:: PCOS, endometriosis in abd cavity - ENDOCRINE Hx Endocrine Disorders: Yes Hx Diabetes: Yes Hx Thyroid Disease: No - MUSCULOSKELETAL Hx Musculoskeletal Disorders: Yes Hx Gout: Yes Comment:: Bulging discs - PSYCH Hx Psych Problems: Yes Hx Anxiety: Yes (panic attacks) Hx Behavior Problems: Yes (bipolar) - HEMATOLOGY/ONCOLOGY Hx Hematology/Oncology Disorders: No Family Medical History Any Significant Family History?: Yes Hx Cancer: Father, Mother, Grandparents *Cancer Comment: lung, colon, prostate, melanoma Hx Diabetes: Father, Mother, Grandparents Hx Heart Disease: Father, Mother Physical Exam - General General Appearance: Alert, Oriented x3, Cooperative, Mild distress Limitations: No limitations - Head Head exam: Atraumatic, Normocephalic, Normal inspection Head exam detail: negative: Abrasion, Contusion, Marcelino's sign, General tenderness, Hematoma, Laceration - Eye Eye exam: Normal appearance. negative: Conjunctival injection, Periorbital swelling, Periorbital tenderness, Scleral icterus - ENT Ear exam: negative: Auricular hematoma, Auricular trauma Nasal Exam: negative: Active bleeding, Discharge, Dried blood, Foreign body Mouth exam: negative: Drooling, Laceration, Muffled voice, Tongue elevation - Neck Neck exam: Normal inspection. negative: Meningismus, Tenderness - Respiratory Respiratory exam: Normal lung sounds bilaterally. negative: Rales, Respiratory distress, Rhonchi, Stridor - Cardiovascular Cardiovascular Exam: Regular rate, Normal rhythm, Normal heart sounds - GI/Abdominal GI/Abdominal exam: Soft. negative: Rebound, Rigid, Tenderness - Rectal Rectal exam: Deferred - exam: Deferred - Extremities Extremities exam: negative: Pedal edema, Tenderness - Back Back exam: Denies: CVA tenderness (R), CVA tenderness (L) - Neurological Neurological exam: Alert, Normal gait, Oriented X3 - Psychiatric Psychiatric exam: Normal affect, Normal mood - Skin Skin exam: Normal color. negative: Abrasion Type of lesion: negative: abrasion Course Vital Signs 07/01/18 22:21 Temperature 99.5 F Pulse Rate 100 H Respiratory 20 Rate Blood Pressure 114/68 Pulse Ox 98 - Reevaluation(s) Reevaluation #1: 07/01/18 23:16 Patient reports significant improvement in her symptoms, and appears stable for discharge at this time with instructions to follow-up with her Neurologist (Dr. Fuentes) in [place] next week. Disposition Disposition: Discharge Clinical Impression: Acute headache Qualifiers: Headache type: unspecified Intractability: not intractable Qualified Code(s): R51 - Headache Disposition: Home, Self-Care Condition: (2) Stable Instructions: Acute Headache (ED) Additional Instructions: Return to ED if your symptoms worsen or if you have any concerns. Follow-up with Dr. Fuentes in 2-3 days as directed for further evaluation of your headache symptoms. Forms: Patient Portal Access Time of Disposition: 23:17 Quality - Quality Measures Quality Measures: N/A, Headache (All Ages) - Headache: Neuroimaging Quality Measure: Measure #419: Overuse of Neuroimaging ICD10 Codes Entered: Yes Neurological Exam: Patient had a normal neurological exam. [G9535] Headache: Use of Neuroimaging: < CTA, CT, MRA or MRI was NOT ordered > [G9534] - Blood Pressure Screening Does Patient Have Any of the Following: No Blood Pressure Classification: Normal BP Reading Systolic Measurement: 114 Diastolic Measurement: 68 Screening for High Blood Pressure: < Normal BP, F/U Not Required > [G6830]
== END 2018-07-01 23:24 | disposition home or self-care (01) ==
LOC: ER 22:18
DX: R51 Headache (principal); R11.0 Nausea; H53.149 Visual discomfort, unspecified; E11.9 Type 2 diabetes mellitus without complications; Z79.4 Long term (current) use of insulin
CPT/HCPCS: 99284 ×2; 96374; 96375; J1885; J1200; J2765; J7030

== ENCOUNTER 2018-07-28 19:57 | Emergency (ER) | payer MEDICARE, OTHER, MEDICAID ==
[2018-07-28] MEDS ORDERED: DIPHENHYDRAMINE HCL 50 MG/ML VIAL IVP ONE (21:05)
[2018-07-28] MEDS ORDERED: METOCLOPRAMIDE HCL 10 MG/2 ML VIAL IVP ONE (21:05)
[2018-07-28] MEDS ORDERED: KETOROLAC 30 MG/ML VIAL IVP ONE (21:05)
[2018-07-28] MEDS ORDERED: 0.9 % SODIUM CHLORIDE 1,000 ML BAG IV ONE (21:06)
--- NOTE | 2018-07-28 21:31 | Emergency Department Record ---
History of Present Illness - General Chief Complaint: Headache Migraine Stated Complaint: BISHOP Time Seen by Provider: 07/28/18 20:46 Source: Patient Mode of Arrival: Ambulatory Limitations: No limitations - History of Present Illness Initial Comments: pt has been having a migraine for a week. she has tried all her meds and the bishop will get a little better and then gets worse again. it is lasting longer then usual and her vision gets blurry. Complaint: "Migraine" Onset/Timin -: Days(s) Onset Description: Gradual Location: Temporal Severity: Moderate Severity scale (1-10): 9 Quality: Throbbing Consistency: Constant, Getting worse Improves With: Medication Worsens With: Light, Noise Treatments Prior to Arrival: Migraine medication, Other Treatment Prior to Arrival Comment:: zofran, benadryl and toradol at 1400 - Symptoms of Stroke Baseline State: Baseline State - Related Data Home Medications Medication Instructions Recorded Confirmed Last Taken Diphenhydramine HCl [Benadryl] 25 mg PO Q6H PRN 07/28/18 07/28/18 07/28/18 Previous Rx's Medication Instructions Recorded Metformin HCl [Glucophage] 1,000 mg PO BID #180 tablet 05/21/15 Allergies Allergy/AdvReac Type Severity Reaction Status Date / Time cephalexin monohydrate Allergy Intermediate throat Verified 07/28/18 20:56 [From Keflex] swelling doxycycline Allergy Intermediate VOMITING Verified 07/28/18 20:56 fluoxetine HCl [From Prozac] Allergy Intermediate HYPERSENSIT Verified 07/28/18 20:56 IVITY Sulfa (Sulfonamide Allergy Intermediate HIVES Verified 07/28/18 20:56 Antibiotics) sulfamethoxazole Allergy Intermediate HIVES Verified 07/28/18 20:56 [From Bactrim] sumatriptan succinate Allergy Intermediate TACHYCARDIA Verified 07/28/18 20:56 [From Imitrex] trimethoprim [From Bactrim] Allergy Intermediate HIVES Verified 07/28/18 20:56 topiramate [From Topamax] AdvReac DIZZINESS Verified 07/28/18 20:56 Imitrex (oral only) AdvReac Intermediate TACHYCARDIA Uncoded 07/28/18 20:56 SILK TAPE AdvReac Mild RASH Uncoded 07/28/18 20:56 Travel Screening - Travel/Exposure Within Last 30 Days Have you traveled within the last 30 days?: No - Travel/Exposure Within Last Year Have you traveled outside the [place] in the last year?: No - Additonal Travel Details Have you been exposed to anyone with a communicable illness?: No - Travel Symptoms Symptom Screening: None Review of Systems Reviewed: No additional complaints except as noted below Constitutional: Reports: As per HPI. Denies: Chills, Fever, Malaise, Night sweats, Weakness, Weight change Eyes: Reports: As per HPI. Denies: Eye discharge, Eye pain, Photophobia, Vision change ENT: Reports: As per HPI. Denies: Congestion, Dental pain, Ear pain, Epistaxis , Hearing loss, Throat pain Respiratory: Reports: As per HPI. Denies: Cough, Dyspnea, Hemoptysis, Stridor, Wheezes Cardiovascular: Reports: As per HPI. Denies: Arrhythmia, Chest pain, Dyspnea on exertion, Edema, Murmurs, Orthopnea, Palpitations, Paroxysmal nocturnal dyspnea, Rheumatic Fever, Syncope Endocrine: Reports: As per HPI. Denies: Fatigue, Heat or cold intolerance, Polydipsia, Polyuria Gastrointestinal: Reports: As per HPI. Denies: Abdominal pain, Constipation, Diarrhea, Hematemesis, Hematochezia, Melena, Nausea, Vomiting Genitourinary: Reports: As per HPI. Denies: Abnormal menses, Discharge, Dyspareunia, Dysuria, Frequency, Hematuria, Incontinence, Retention, Urgency Musculoskeletal: Reports: As per HPI. Denies: Arthralgia, Back pain, Gout, Joint swelling, Myalgia, Neck pain Skin: Reports: As per HPI. Denies: Bruising, Change in color, Change in hair/ nails, Lesions, Pruritus, Rash Neurological: Reports: As per HPI. Denies: Abnormal gait, Confusion, Headache, Numbness, Paresthesias, Seizure, Tingling, Tremors, Vertigo, Weakness Psychiatric: Reports: As per HPI. Denies: Anxiety, Auditory hallucinations, Depression, Homicidal thoughts, Suicidal thoughts, Visual hallucinations Hematological/Lymphatic: Reports: As per HPI. Denies: Anemia, Blood Clots, Easy bleeding, Easy bruising, Swollen glands Past Medical History - SOCIAL HISTORY Smoking Status: Never smoker Alcohol Use: Rare Drug Use: Heavy Drug Use Detail:: Marijuana - RESPIRATORY Hx Respiratory Disorders: Yes Hx Bronchitis: Yes (2015) Hx Sleep Apnea: Yes Hx of CPAP: No (PT IS SUPPOSED TO WEAR ONE) - CARDIOVASCULAR Hx Cardio Disorders: Yes Hx Edema: Yes - NEURO Hx Neuro Disorders: Yes Hx Headaches: Yes Hx of Migraines: Yes Hx Neuropathy: Yes (BLE) Hx Seizures: Yes (high fever related as a child none since 7yrs old) - GI Hx GI Disorders: Yes Hx Abdominal Pain: Yes - Hx Genitourinary Disorders: Yes Comment:: PCOS, endometriosis in abd cavity - ENDOCRINE Hx Endocrine Disorders: Yes Hx Diabetes: Yes Hx Thyroid Disease: No - MUSCULOSKELETAL Hx Musculoskeletal Disorders: Yes Hx Gout: Yes Comment:: Bulging discs, herniated disk, spinal stenosis - PSYCH Hx Psych Problems: Yes Hx Anxiety: Yes (panic attacks) Hx Behavior Problems: Yes (bipolar) - HEMATOLOGY/ONCOLOGY Hx Hematology/Oncology Disorders: No Family Medical History Any Significant Family History?: No Hx Cancer: Father, Mother, Grandparents *Cancer Comment: lung, colon, prostate, melanoma Hx Diabetes: Father, Mother, Grandparents Hx Heart Disease: Father, Mother Physical Exam - General General Appearance: Alert, Oriented x3, Cooperative, Mild distress - Head Head exam: Normal inspection - Eye Eye exam: Normal appearance, PERRL, EOMI Pupils: Normal accommodation - ENT ENT exam: Normal exam, Mucous membranes moist, Normal external ear exam, Normal orophraynx Ear exam: Normal external inspection. negative: External canal tenderness Nasal Exam: Normal inspection. negative: Discharge, Sinus tenderness Mouth exam: Normal external inspection, Tongue normal Teeth exam: Normal inspection. negative: Dental caries Throat exam: Normal inspection. negative: Tonsillar erythema, Tonsillar exudate - Neck Neck exam: Normal inspection, Full ROM. negative: Tenderness - Respiratory Respiratory exam: Normal lung sounds bilaterally. negative: Respiratory distress - Cardiovascular Cardiovascular Exam: Regular rate, Normal rhythm, Normal heart sounds - GI/Abdominal GI/Abdominal exam: Soft, Normal bowel sounds. negative: Tenderness - Rectal Rectal exam: Deferred - exam: Deferred - Extremities Extremities exam: Normal inspection, Full ROM, Normal capillary refill. negative: Tenderness - Back Back exam: Reports: Normal inspection, Full ROM. Denies: Muscle spasm, Rash noted, Tenderness - Neurological Neurological exam: Alert, CN II-XII intact, Normal gait, Oriented X3 - Psychiatric Psychiatric exam: Normal affect, Normal mood - Skin Skin exam: Dry, Intact, Normal color, Warm Course Vital Signs 07/28/18 20:45 Temperature 99.0 F Pulse Rate 99 H Respiratory 20 Rate Blood Pressure 127/78 Pulse Ox 99 - Reevaluation(s) Reevaluation #1: 07/28/18 22:15 pt feels better Disposition Disposition: Discharge Clinical Impression: Migraine Qualifiers: Migraine type: with aura Status migrainosus presence: with status migrainosus Intractability: intractable Qualified Code(s): G43.111 - Migraine with aura, intractable, with status migrainosus Disposition: Home, Self-Care Condition: (1) Good Instructions: Migraine Headache (ED) Additional Instructions: follow up with family doctor. return sooner if worse. Forms: Patient Portal Access Quality - Quality Measures Quality Measures: Headache (All Ages) - Headache: Neuroimaging Quality Measure: Measure #419: Overuse of Neuroimaging ICD10 Codes Entered: Yes Neurological Exam: Patient had a normal neurological exam. [G9535] Headache: Use of Neuroimaging: CTA, CT, MRA or MRI Ordered [G9538] Medical Reason for Exam: Change in Type of Headache - Blood Pressure Screening Does Patient Have Any of the Following: No Blood Pressure Classification: Pre-Hypertensive BP Reading Systolic Measurement: 127 Diastolic Measurement: 78 Screening for High Blood Pressure: < Pre-Hypertensive BP, F/U Documented > [ G8950] Pre-Hypertensive Follow-up Interventions: Follow-up with rescreen every year.
--- NOTE | 2018-07-31 10:04 | CT SCAN REPORT ---
EXAM: NONCONTRAST HEAD CT HISTORY: HEADACHE. TECHNIQUE: Noncontrast CT of the head was obtained. Comparison: CT of the head 03/29/18. FINDINGS: No midline shift, mass effect, or intra or extraaxial abnormal fluid collection. No cerebral edema, focal mass or intracranial hemorrhage detected. The ventricle sizes are within normal limits for patient's age and stable from comparison head CT. The basal cisterns are not effaced. Bilateral maxillary sinus polyps versus retention cysts. The remainder of the visualized paranasal sinuses and mastoid air cells are clear. No evidence of displaced calvarial fracture. IMPRESSION: 1. NO ACUTE INTRACRANIAL FINDINGS. 2. BILATERAL MAXILLARY SINUS POLYPS OR RETENTION CYSTS, SEEN PREVIOUSLY. JOB NUMBER: [id number] [facility]
== END 2018-07-28 22:26 | disposition home or self-care (01) ==
LOC: ER 19:57
DX: G43.111 Migraine with aura, intractable, with status migrainosus (principal)
CPT/HCPCS: 99284 ×2; 96374; 96375; 70450; J1885; J1200; J2765; J7030

== ENCOUNTER 2018-08-18 23:13 | Emergency (ER) | payer MEDICARE, OTHER ==
[2018-08-18] MEDS ORDERED: ORPHENADRINE CITRATE 60MG/2ML VIAL IM ONE (23:27)
[2018-08-18] MEDS ORDERED: DIPHENHYDRAMINE HCL 50 MG/ML VIAL IVP ONE (23:27)
[2018-08-18] MEDS ORDERED: KETOROLAC 30 MG/ML VIAL IVP ONE (23:27)
[2018-08-18] MEDS ORDERED: 0.9 % SODIUM CHLORIDE 1,000 ML BAG IV ONE (23:27)
[2018-08-18] MEDS ORDERED: METOCLOPRAMIDE HCL 10 MG/2 ML VIAL IVP ONE (23:29)
--- NOTE | 2018-08-18 23:35 | Emergency Department Record ---
History of Present Illness - General Chief Complaint: Headache Migraine Stated Complaint: HEADACHE Time Seen by Provider: 08/18/18 23:14 Source: Patient Mode of Arrival: Ambulatory Limitations: No limitations - History of Present Illness Initial Comments: The patient is here due to a chronic hx of Migraine BISHOP's and now having her typical BISHOP that won't go away. She states the onset was 3 days ago and the pain is over the front of the head. It has gradually worsened and she does have mild nausea and photophobia. She denies any vomiting, neck pain, fever, or balance issues. The patient has a LONG hx of the exact same BISHOP's and does see a Neurologist. She did try her home BISHOP cocktail with no improvement. MD Complaint: Headache Onset/Timin -: Days(s) Onset Description: Gradual, At rest Location: Frontal, Temporal Quality: Similar to previous headaches Consistency: Constant, Getting worse Improves With: Nothing Worsens With: Exertion/activity, Light, Noise Associated Symptoms: Nausea, Photophobia Treatments Prior to Arrival: Migraine medication - Related Data Previous Rx's Medication Instructions Recorded Metformin HCl [Glucophage] 1,000 mg PO BID #180 tablet 05/21/15 Allergies Allergy/AdvReac Type Severity Reaction Status Date / Time cephalexin monohydrate Allergy Intermediate throat Verified 07/28/18 20:56 [From Keflex] swelling doxycycline Allergy Intermediate VOMITING Verified 07/28/18 20:56 fluoxetine HCl [From Prozac] Allergy Intermediate HYPERSENSIT Verified 07/28/18 20:56 IVITY Sulfa (Sulfonamide Allergy Intermediate HIVES Verified 07/28/18 20:56 Antibiotics) sulfamethoxazole Allergy Intermediate HIVES Verified 07/28/18 20:56 [From Bactrim] sumatriptan succinate Allergy Intermediate TACHYCARDIA Verified 07/28/18 20:56 [From Imitrex] trimethoprim [From Bactrim] Allergy Intermediate HIVES Verified 07/28/18 20:56 topiramate [From Topamax] AdvReac DIZZINESS Verified 07/28/18 20:56 Imitrex (oral only) AdvReac Intermediate TACHYCARDIA Uncoded 07/28/18 20:56 SILK TAPE AdvReac Mild RASH Uncoded 07/28/18 20:56 Travel Screening - Travel/Exposure Within Last 30 Days Have you traveled within the last 30 days?: No Review of Systems Constitutional: Denies: Chills, Fever Eyes: Denies: Eye discharge ENT: Denies: Congestion Respiratory: Denies: Cough, Dyspnea Past Medical History - SOCIAL HISTORY Smoking Status: Never smoker Alcohol Use: None Drug Use: None - RESPIRATORY Hx Respiratory Disorders: Yes Hx Bronchitis: Yes (2014) Hx Sleep Apnea: Yes Hx of CPAP: No (PT IS SUPPOSED TO WEAR ONE) - CARDIOVASCULAR Hx Cardio Disorders: Yes Hx Edema: Yes - NEURO Hx Neuro Disorders: Yes Hx Headaches: Yes Hx of Migraines: Yes Hx Neuropathy: Yes (BLE) Hx Seizures: Yes (high fever related as a child none since 7yrs old) - GI Hx GI Disorders: Yes Hx Abdominal Pain: Yes - Hx Genitourinary Disorders: Yes Comment:: PCOS, endometriosis in abd cavity - ENDOCRINE Hx Endocrine Disorders: Yes Hx Diabetes: Yes Hx Thyroid Disease: No - MUSCULOSKELETAL Hx Musculoskeletal Disorders: Yes Comment:: Bulging discs, herniated disk, spinal stenosis - PSYCH Hx Psych Problems: Yes Hx Anxiety: Yes (panic attacks) Hx Behavior Problems: Yes (bipolar) - HEMATOLOGY/ONCOLOGY Hx Hematology/Oncology Disorders: No Family Medical History Any Significant Family History?: Yes Hx Cancer: Father, Mother, Grandparents *Cancer Comment: lung, colon, prostate, melanoma Hx Diabetes: Father, Mother, Grandparents Hx Heart Disease: Father, Mother Physical Exam - General General Appearance: Alert, Oriented x3, Cooperative, No acute distress - Head Head exam: Atraumatic, Normocephalic, Normal inspection - Eye Eye exam: Normal appearance, PERRL, EOMI - ENT Throat exam: Normal inspection. negative: Tonsillar erythema, Tonsillar exudate - Neck Neck exam: Normal inspection, Full ROM. negative: Meningismus, Tenderness - Respiratory Respiratory exam: Normal lung sounds bilaterally. negative: Respiratory distress - Cardiovascular Cardiovascular Exam: Regular rate, Normal rhythm, Normal heart sounds - GI/Abdominal GI/Abdominal exam: Soft, Normal bowel sounds. negative: Tenderness - Extremities Extremities exam: Normal inspection, Full ROM, Normal capillary refill. negative: Tenderness - Neurological Neurological exam: Alert, Motor sensory deficit, Normal gait, Other (Neg Drift and Rhomberg exams.). negative: Abnormal gait, Altered, Oriented X3 - Psychiatric Psychiatric exam: negative: Anxious - Skin Skin exam: negative: Rash Course Vital Signs 08/18/18 23:19 Temperature 99.4 F Pulse Rate [ 91 H Pulse Ox Probe] Respiratory 20 Rate Blood Pressure 139/90 [Left Arm] Pulse Ox 97 - Reevaluation(s) Reevaluation #1: The patient is doing a lot better at this time. Her pain is much improved and she would like to go home. She is up walking with no difficulty or ataxia. 08/19/18 00:04 Disposition Disposition: Discharge Clinical Impression: Migraine Qualifiers: Migraine type: unspecified Status migrainosus presence: without status migrainosus Intractability: not intractable Qualified Code(s): G43.909 - Migraine, unspecified, not intractable, without status migrainosus Disposition: Home, Self-Care Condition: (2) Stable Instructions: Migraine Headache (ED) Additional Instructions: Please continue your regular medicines and please see your headache specialist next week if needed. Return to the ER for any worsening symptoms. Forms: Patient Portal Access Time of Disposition: 00:05 Quality - Quality Measures Quality Measures: Headache (All Ages) - Headache: Neuroimaging Quality Measure: Measure #419: Overuse of Neuroimaging ICD10 Codes Entered: Yes View Detail: Yes Neurological Exam: Patient had a normal neurological exam. [G9535] Headache: Use of Neuroimaging: < CTA, CT, MRA or MRI was NOT ordered > [G9534] - Blood Pressure Screening View Details: Yes Does Patient Have Any of the Following: No Blood Pressure Classification: Hypertensive Reading Systolic Measurement: 139 Diastolic Measurement: 90 Screening for High Blood Pressure: < First Hypertensive BP, F/U Documented > [ G8950] First Hypertensive Follow-up Interventions: Referral to alternative/primary care provider.
== END 2018-08-19 00:19 | disposition home or self-care (01) ==
LOC: ER 23:13
DX: G43.909 Migraine, unspecified, not intractable, without status migrainosus (principal); R11.0 Nausea; H53.149 Visual discomfort, unspecified; E11.9 Type 2 diabetes mellitus without complications; Z79.84 Long term (current) use of oral hypoglycemic drugs
CPT/HCPCS: 99284 ×2; 96374; 96375; J1885; J1200; J2765; J7030

== ENCOUNTER 2018-09-01 19:26 | Emergency (ER) | payer MEDICARE, OTHER, MEDICAID ==
[2018-09-01] MEDS ORDERED: METOCLOPRAMIDE HCL 10 MG/2 ML VIAL IVP ONE (19:36)
[2018-09-01] MEDS ORDERED: KETOROLAC 30 MG/ML VIAL IVP ONE (19:36)
[2018-09-01] MEDS ORDERED: DIPHENHYDRAMINE HCL 50 MG/ML VIAL IVP ONE (19:36)
--- NOTE | 2018-09-01 19:41 | Emergency Department Record ---
History of Present Illness - General Chief Complaint: Headache Migraine Stated Complaint: BISHOP Time Seen by Provider: 09/01/18 19:31 Source: Patient Mode of Arrival: Ambulatory Limitations: No limitations - History of Present Illness Initial Comments: 38 yo female presents to ED for evaluation of a "migraine headache" that began 3 days ago. Patient reports that she recently returned from the [facility], reports "it feels like there is fluid in my right ear". Patient denies fevers, chills, or neck stiffness symptoms. Patient reports numerous previous headache episodes with similar symptoms. MD Complaint: Headache Onset/Timin -: Days(s) Onset Description: Gradual Location: Diffuse Severity: Moderate Severity scale (1-10): 9 Quality: Similar to previous headaches Consistency: Constant Improves With: Nothing Worsens With: Exertion/activity Context: Other Treatments Prior to Arrival: None - Symptoms of Stroke Baseline State: Baseline State - Related Data Previous Rx's Medication Instructions Recorded Metformin HCl [Glucophage] 1,000 mg PO BID #180 tablet 05/21/15 Allergies Allergy/AdvReac Type Severity Reaction Status Date / Time cephalexin monohydrate Allergy Intermediate throat Verified 07/28/18 20:56 [From Keflex] swelling doxycycline Allergy Intermediate VOMITING Verified 07/28/18 20:56 fluoxetine HCl [From Prozac] Allergy Intermediate HYPERSENSIT Verified 07/28/18 20:56 IVITY Sulfa (Sulfonamide Allergy Intermediate HIVES Verified 07/28/18 20:56 Antibiotics) sulfamethoxazole Allergy Intermediate HIVES Verified 07/28/18 20:56 [From Bactrim] sumatriptan succinate Allergy Intermediate TACHYCARDIA Verified 07/28/18 20:56 [From Imitrex] trimethoprim [From Bactrim] Allergy Intermediate HIVES Verified 07/28/18 20:56 topiramate [From Topamax] AdvReac DIZZINESS Verified 07/28/18 20:56 Imitrex (oral only) AdvReac Intermediate TACHYCARDIA Uncoded 07/28/18 20:56 SILK TAPE AdvReac Mild RASH Uncoded 07/28/18 20:56 Travel Screening - Travel/Exposure Within Last 30 Days Have you traveled within the last 30 days?: No - Travel Symptoms Symptom Screening: None Review of Systems Constitutional: Denies: Chills, Fever, Malaise, Night sweats Eyes: Denies: Eye discharge, Eye pain ENT: Denies: Congestion, Ear pain Respiratory: Denies: Cough, Dyspnea Cardiovascular: Denies: Chest pain, Dyspnea on exertion Endocrine: Denies: Fatigue Gastrointestinal: Denies: Abdominal pain, Nausea, Vomiting Genitourinary: Denies: Incontinence, Retention Musculoskeletal: Denies: Arthralgia, Back pain Skin: Denies: Bruising, Change in color Neurological: Reports: Headache. Denies: Abnormal gait, Confusion, Seizure Psychiatric: Denies: Anxiety Hematological/Lymphatic: Denies: Anemia, Blood Clots Past Medical History - SOCIAL HISTORY Smoking Status: Never smoker Alcohol Use: None Drug Use: None - RESPIRATORY Hx Respiratory Disorders: Yes Hx Bronchitis: Yes (2014) Hx Sleep Apnea: Yes Hx of CPAP: No (PT IS SUPPOSED TO WEAR ONE) - CARDIOVASCULAR Hx Cardio Disorders: Yes Hx Edema: Yes - NEURO Hx Neuro Disorders: Yes Hx Headaches: Yes Hx of Migraines: Yes Hx Neuropathy: Yes (BLE) Hx Seizures: Yes (high fever related as a child none since 7yrs old) - GI Hx GI Disorders: Yes Hx Abdominal Pain: Yes - Hx Genitourinary Disorders: Yes Comment:: PCOS, endometriosis in abd cavity - ENDOCRINE Hx Endocrine Disorders: Yes Hx Diabetes: Yes Hx Thyroid Disease: No - MUSCULOSKELETAL Hx Musculoskeletal Disorders: Yes Comment:: Bulging discs, herniated disk, spinal stenosis - PSYCH Hx Psych Problems: Yes Hx Anxiety: Yes (panic attacks) Hx Behavior Problems: Yes (bipolar) - HEMATOLOGY/ONCOLOGY Hx Hematology/Oncology Disorders: No Family Medical History Any Significant Family History?: Yes Hx Cancer: Father, Mother, Grandparents *Cancer Comment: lung, colon, prostate, melanoma Hx Diabetes: Father, Mother, Grandparents Hx Heart Disease: Father, Mother Physical Exam - General General Appearance: Alert, Oriented x3, Cooperative, Mild distress Limitations: No limitations - Head Head exam: Atraumatic, Normocephalic, Normal inspection Head exam detail: negative: Abrasion, Contusion, Marcelino's sign, General tenderness, Hematoma, Laceration - Eye Eye exam: Normal appearance. negative: Conjunctival injection, Periorbital swelling, Periorbital tenderness, Scleral icterus - ENT Ear exam: negative: Auricular hematoma, Auricular trauma Nasal Exam: negative: Active bleeding, Discharge, Dried blood, Foreign body Mouth exam: negative: Drooling, Laceration, Muffled voice, Tongue elevation - Neck Neck exam: Normal inspection. negative: Meningismus, Tenderness - Respiratory Respiratory exam: Normal lung sounds bilaterally. negative: Rales, Respiratory distress, Rhonchi, Stridor - Cardiovascular Cardiovascular Exam: Regular rate, Normal rhythm, Normal heart sounds - GI/Abdominal GI/Abdominal exam: Soft. negative: Rebound, Rigid, Tenderness - Rectal Rectal exam: Deferred - exam: Deferred - Extremities Extremities exam: Normal inspection. negative: Pedal edema, Tenderness - Back Back exam: Denies: CVA tenderness (R), CVA tenderness (L) - Neurological Neurological exam: Alert, Normal gait, Oriented X3 - Psychiatric Psychiatric exam: Normal affect, Normal mood - Skin Skin exam: Normal color. negative: Abrasion Type of lesion: negative: abrasion Course Vital Signs 09/01/18 19:36 Temperature 98.7 F Pulse Rate [ 121 H Pulse Ox Probe] Respiratory 18 Rate Blood Pressure 123/70 [Left Arm] Pulse Ox 98 - Reevaluation(s) Reevaluation #1: 09/01/18 20:29 Patient was reassessed. reports that her headache symptoms are greatly improved. Patient is tolerating PO, pulse improved to 92 from 116. Patient appears stable for discharge at this time. Disposition Disposition: Discharge Clinical Impression: Headache Qualifiers: Headache type: unspecified Headache chronicity pattern: acute headache Intractability: not intractable Qualified Code(s): R51 - Headache Disposition: Home, Self-Care Condition: (2) Stable Instructions: Acute Headache (ED) Additional Instructions: Return to ED if your symptoms worsen or if you have any concerns. Follow-up with your family doctor in 3-5 days as directed. Forms: Patient Portal Access Time of Disposition: 19:56 Quality - Quality Measures Quality Measures: N/A, Headache (All Ages) - Headache: Neuroimaging Quality Measure: Measure #419: Overuse of Neuroimaging ICD10 Codes Entered: Yes Neurological Exam: Patient had a normal neurological exam. [G9535] Headache: Use of Neuroimaging: < CTA, CT, MRA or MRI was NOT ordered > [G9534] - Blood Pressure Screening Does Patient Have Any of the Following: No Blood Pressure Classification: Normal BP Reading Systolic Measurement: 109 Diastolic Measurement: 65 Screening for High Blood Pressure: < Normal BP, F/U Not Required > [G8783] Pre-Hypertensive Follow-up Interventions: Referral to alternative/primary care provider.
[2018-09-01] MEDS ORDERED: 0.9 % SODIUM CHLORIDE 1000ML 1,000 ML IV SCH (19:45)
== END 2018-09-01 20:47 | disposition home or self-care (01) ==
LOC: ER 19:26
DX: R51 Headache (principal); E11.9 Type 2 diabetes mellitus without complications; Z79.4 Long term (current) use of insulin
CPT/HCPCS: 99284 ×2; 96374; 96375; J1885; J1200; J2765; J7030

== ENCOUNTER 2018-10-02 19:36 | Emergency (ER) | payer MEDICARE, OTHER, MEDICAID ==
--- NOTE | 2018-10-02 19:43 | Emergency Department Record ---
History of Present Illness - General Chief complaint: Lower Extremity Pain Stated complaint: LEG PAIN Time Seen by Provider: 10/02/18 19:38 Source: Patient Mode of Arrival: Wheelchair Limitations: No limitations - History of Present Illness Initial comments: 38 yo female presents to ED for evaluation of left sided calf pain that began approximately 3:00 AM this morning. Patient denies injury, denies fevers, chills, or recent illness. Patient reports pain with weight bearing to the posterior calf. Patient saw her global professional today, recommended "blood tests" to exclude a blood clot. Patient denies previous history of DVT or recent immobilization. MD Complaint: Other Onset/Timin -: Days(s) Location: Lower Leg History of Same: No -: Yes Myalgia Radiation: Proximal Quality: Aching Consistency: Constant Improves with: Immobilization Worsens with: Weight bearing Associated Symptoms: Denies other symptoms - Related Data Previous Rx's Medication Instructions Recorded Metformin HCl [Glucophage] 1,000 mg PO BID #180 tablet 05/21/15 Allergies Allergy/AdvReac Type Severity Reaction Status Date / Time cephalexin monohydrate Allergy Intermediate throat Unverified 09/20/18 14:35 [From Keflex] swelling doxycycline Allergy Intermediate VOMITING Unverified 09/20/18 14:35 fluoxetine HCl [From Prozac] Allergy Intermediate HYPERSENSIT Unverified 14:35 IVITY Sulfa (Sulfonamide Allergy Intermediate HIVES Unverified 09/20/18 14:35 Antibiotics) sulfamethoxazole Allergy Intermediate HIVES Unverified 09/20/18 14:35 [From Bactrim] sumatriptan succinate Allergy Intermediate TACHYCARDIA Unverified 09/20/18 14:35 [From Imitrex] trimethoprim [From Bactrim] Allergy Intermediate HIVES Unverified 09/20/18 14:35 topiramate [From Topamax] AdvReac DIZZINESS Unverified 09/20/18 14:35 Imitrex (oral only) AdvReac Intermediate TACHYCARDIA Uncoded 07/28/18 20:56 SILK TAPE AdvReac Mild RASH Uncoded 07/28/18 20:56 Review of Systems Constitutional: Denies: Chills, Fever, Malaise, Night sweats Eyes: Denies: Eye discharge, Eye pain ENT: Denies: Congestion, Ear pain, Epistaxis Respiratory: Denies: Cough, Dyspnea Cardiovascular: Denies: Chest pain, Dyspnea on exertion Endocrine: Denies: Fatigue, Heat or cold intolerance Gastrointestinal: Denies: Abdominal pain, Nausea, Vomiting Genitourinary: Denies: Incontinence, Retention Musculoskeletal: Reports: Myalgia. Denies: Arthralgia, Back pain Skin: Denies: Bruising, Change in color Neurological: Denies: Abnormal gait, Confusion, Headache, Seizure Psychiatric: Denies: Anxiety Hematological/Lymphatic: Denies: Anemia, Blood Clots Past Medical History - SOCIAL HISTORY Smoking Status: Never smoker Drug Use: None - RESPIRATORY Hx Respiratory Disorders: Yes Hx Bronchitis: Yes (2014) Hx Sleep Apnea: Yes Hx of CPAP: No (PT IS SUPPOSED TO WEAR ONE) - CARDIOVASCULAR Hx Cardio Disorders: Yes Hx Edema: Yes - NEURO Hx Neuro Disorders: Yes Hx Headaches: Yes Hx of Migraines: Yes Hx Neuropathy: Yes (BLE) Hx Seizures: Yes (high fever related as a child none since 7yrs old) - GI Hx GI Disorders: Yes Hx Abdominal Pain: Yes - Hx Genitourinary Disorders: Yes Comment:: PCOS, endometriosis in abd cavity - ENDOCRINE Hx Endocrine Disorders: Yes Hx Diabetes: Yes Hx Thyroid Disease: No - MUSCULOSKELETAL Hx Musculoskeletal Disorders: Yes Comment:: Bulging discs, herniated disk, spinal stenosis - PSYCH Hx Psych Problems: Yes Hx Anxiety: Yes (panic attacks) Hx Behavior Problems: Yes (bipolar) - HEMATOLOGY/ONCOLOGY Hx Hematology/Oncology Disorders: No Family Medical History Hx Cancer: Father, Mother, Grandparents *Cancer Comment: lung, colon, prostate, melanoma Hx Diabetes: Father, Mother, Grandparents Hx Heart Disease: Father, Mother Physical Exam - General General Appearance: Alert, Oriented x3, Cooperative, Mild distress Limitations: No limitations - Head Head exam: Atraumatic, Normocephalic, Normal inspection Head exam detail: negative: Abrasion, Contusion, Marcelino's sign, General tenderness, Hematoma, Laceration - Eye Eye exam: Normal appearance. negative: Conjunctival injection, Periorbital swelling, Periorbital tenderness, Scleral icterus - ENT Ear exam: negative: Auricular hematoma, Auricular trauma Nasal Exam: negative: Active bleeding, Discharge, Dried blood, Foreign body Mouth exam: negative: Drooling, Laceration, Muffled voice, Tongue elevation - Neck Neck exam: Normal inspection. negative: Meningismus, Tenderness - Respiratory Respiratory exam: Normal lung sounds bilaterally. negative: Rales, Respiratory distress, Rhonchi, Stridor - Cardiovascular Cardiovascular Exam: Regular rate, Normal rhythm, Normal heart sounds - GI/Abdominal GI/Abdominal exam: Soft. negative: Rebound, Rigid, Tenderness - Rectal Rectal exam: Deferred - exam: Deferred - Extremities Extremities exam: Calf tenderness, Full ROM, Tenderness. negative: Pedal edema - Back Back exam: Denies: CVA tenderness (R), CVA tenderness (L) - Neurological Neurological exam: Alert, Oriented X3 - Psychiatric Psychiatric exam: Normal affect, Normal mood - Skin Skin exam: Normal color. negative: Abrasion Type of lesion: negative: abrasion Course Vital Signs 10/02/18 19:37 Temperature 98.8 F Pulse Rate [ 112 H Pulse Ox Probe] Respiratory 24 Rate Blood Pressure 121/90 [Left Arm] Pulse Ox 99 - Reevaluation(s) Reevaluation #1: 10/02/18 19:42 Patient was seen and examined, will perform D-Dimer testing in an attempt to exclude DVT. Reevaluation #2: 10/02/18 20:35 Laboratory studies were reviewed and are negative for DVT. Patient was updated on all results and appears stable for discharge at this time. Medical Decision Making - Lab Data Result diagrams: 10/02/18 19:44 Disposition Disposition: Discharge Clinical Impression: Calf pain Qualifiers: Laterality: left Qualified Code(s): M79.662 - Pain in left lower leg Disposition: Home, Self-Care Condition: (2) Stable Instructions: Musculoskeletal Pain (ED) Additional Instructions: Return to ED if your symptoms worsen or if you have any concerns. Ibuprofen as directed. Follow-up with your family doctor in 3-5 days as directed. Forms: Patient Portal Access Time of Disposition: 20:36 Quality - Quality Measures Quality Measures: N/A, Headache (All Ages) - Headache: Neuroimaging Quality Measure: Measure #419: Overuse of Neuroimaging ICD10 Codes Entered: Yes Neurological Exam: Patient had a normal neurological exam. [G9535] Headache: Use of Neuroimaging: < CTA, CT, MRA or MRI was NOT ordered > [G9534] - Blood Pressure Screening Does Patient Have Any of the Following: No Blood Pressure Classification: Normal BP Reading Systolic Measurement: 92 Diastolic Measurement: 69 Screening for High Blood Pressure: < Normal BP, F/U Not Required > [G2999]
[2018-10-02 19:55] LABS: BASO % 0.2 % (0-6); EOS % 3.4 % (0-6); GRAN % 64.7 % (47-80); HEMATOCRIT 38.4 % (35.0-47.0); HEMOGLOBIN 12.5 gm/dl (11.6-16.0); LYMPH % 26.5 % (16-45); MEAN CELL VOLUME 92.3 fl (81-97); MEAN CORPUSCULAR HGB CONC 32.6 g/dl (32-36); MEAN PLATELET VOLUME 10.3 fl (7.4-10.4); MONO % 5.2 % (0-9); PLATELET COUNT 241 K/uL (130-400); RED BLOOD COUNT 4.16 M/uL (3.80-5.40); RED CELL DISTRIBUTION WIDTH 16.2 % (11.5-14.5); WHITE BLOOD COUNT W/O DIFF 12.1 K/uL (4.2-12.2)
== END 2018-10-02 20:45 | disposition home or self-care (01) ==
LOC: ER 19:36
DX: M79.662 Pain in left lower leg (principal); E11.9 Type 2 diabetes mellitus without complications; Z79.4 Long term (current) use of insulin
CPT/HCPCS: 85025; 85379; 99283

== ENCOUNTER 2018-11-06 12:27 | Emergency (ER) | payer MEDICARE, OTHER, MEDICAID ==
[2018-11-06] MEDS ORDERED: KETOROLAC 30 MG/ML VIAL IM ONE (12:44)
--- NOTE | 2018-11-06 12:50 | Emergency Department Record ---
History of Present Illness - General Chief complaint: Pain Stated complaint: HIP PAIN Time Seen by Provider: 11/06/18 12:40 Source: Patient Mode of Arrival: Ambulatory Limitations: No limitations - History of Present Illness Initial comments: The patient fell last week injuring her R hip and now the pain seems to be worsening. She denies any AP, back pain, or fever and is able to walk with pain. She denies any other injuries. MD Complaint: Joint pain Onset/Timin -: Days(s) Location: Right, Thigh Radiation: Proximal Severity scale (1-10): 5 Quality: Aching Consistency: Constant Improves with: Nothing Worsens with: Nothing Associated Symptoms: Denies other symptoms - Related Data Previous Rx's Medication Instructions Recorded Metformin HCl [Glucophage] 1,000 mg PO BID #180 tablet 05/21/15 Allergies Allergy/AdvReac Type Severity Reaction Status Date / Time cephalexin monohydrate Allergy Intermediate throat Verified 11/06/18 12:39 [From Keflex] swelling doxycycline Allergy Intermediate VOMITING Verified 11/06/18 12:39 fluoxetine HCl [From Prozac] Allergy Intermediate HYPERSENSIT Verified 11/06/18 12:39 IVITY Sulfa (Sulfonamide Allergy Intermediate HIVES Verified 11/06/18 12:39 Antibiotics) sulfamethoxazole Allergy Intermediate HIVES Verified 11/06/18 12:39 [From Bactrim] sumatriptan succinate Allergy Intermediate TACHYCARDIA Verified 11/06/18 12:39 [From Imitrex] trimethoprim [From Bactrim] Allergy Intermediate HIVES Verified 11/06/18 12:39 topiramate [From Topamax] AdvReac DIZZINESS Verified 11/06/18 12:39 Imitrex (oral only) AdvReac Intermediate TACHYCARDIA Uncoded 11/06/18 12:39 SILK TAPE AdvReac Mild RASH Uncoded 11/06/18 12:39 Travel Screening - Travel/Exposure Within Last 30 Days Have you traveled within the last 30 days?: No - Travel/Exposure Within Last Year Have you traveled outside the [place] in the last year?: No - Additonal Travel Details Have you been exposed to anyone with a communicable illness?: No - Travel Symptoms Symptom Screening: None Review of Systems Constitutional: Denies: Chills, Fever Eyes: Denies: Eye discharge ENT: Denies: Congestion Respiratory: Denies: Cough, Dyspnea Past Medical History - SOCIAL HISTORY Smoking Status: Never smoker Alcohol Use: None Drug Use: None - RESPIRATORY Hx Respiratory Disorders: Yes Hx Bronchitis: Yes (2015) Hx Sleep Apnea: Yes Hx of CPAP: No (PT IS SUPPOSED TO WEAR ONE) - CARDIOVASCULAR Hx Cardio Disorders: Yes Hx Edema: Yes - NEURO Hx Neuro Disorders: Yes Hx Headaches: Yes Hx of Migraines: Yes Hx Neuropathy: Yes (BLE) Hx Seizures: Yes (high fever related as a child none since 7yrs old) - GI Hx GI Disorders: Yes Hx Abdominal Pain: Yes - Hx Genitourinary Disorders: Yes Comment:: PCOS, endometriosis in abd cavity - ENDOCRINE Hx Endocrine Disorders: Yes Hx Diabetes: Yes Hx Thyroid Disease: No - MUSCULOSKELETAL Hx Musculoskeletal Disorders: Yes Comment:: Bulging discs, herniated disk, spinal stenosis - PSYCH Hx Psych Problems: Yes Hx Anxiety: Yes (panic attacks) Hx Behavior Problems: Yes (bipolar) - HEMATOLOGY/ONCOLOGY Hx Hematology/Oncology Disorders: No Family Medical History Any Significant Family History?: Yes Hx Cancer: Father, Mother, Grandparents *Cancer Comment: lung, colon, prostate, melanoma Hx Diabetes: Father, Mother, Grandparents Hx Heart Disease: Father, Mother Physical Exam - General General Appearance: Alert, Oriented x3, Cooperative, No acute distress - Head Head exam: Atraumatic, Normocephalic, Normal inspection - Eye Eye exam: Normal appearance, PERRL - Neck Neck exam: Normal inspection, Full ROM. negative: Tenderness - Respiratory Respiratory exam: Normal lung sounds bilaterally. negative: Respiratory distress - Cardiovascular Cardiovascular Exam: Regular rate, Normal rhythm, Normal heart sounds - GI/Abdominal GI/Abdominal exam: Soft. negative: Tenderness - Extremities Extremities exam: Normal inspection, Full ROM, Normal capillary refill, Other ( There is lateral R hip tenderness to palpation. The patient is able to walk with no limping.). negative: Joint swelling, Tenderness Image of Full Body: 1 - Area of pain and tenderness. Course Vital Signs 11/06/18 12:34 Temperature 98.6 F Pulse Rate 103 H Respiratory 18 Rate Blood Pressure 153/97 Pulse Ox 99 - Reevaluation(s) Reevaluation #1: The patient is doing well. I did discuss the neg xrays with her and the need for F/U. 11/06/18 13:33 Medical Decision Making - Data Complexity MDM Data: X-Ray Ordered and/or Reviewed - Radiology Data Radiology results: Report reviewed (R hip: Neg.) Disposition Disposition: Discharge Clinical Impression: Hip pain, right Disposition: Home, Self-Care Condition: (2) Stable Instructions: Hip Pain (ED) Additional Instructions: Please take your home pain medicines as needed and please see your family doctor for recheck in 3-5 days if not better. Forms: Patient Portal Access Time of Disposition: 13:35 Quality - Quality Measures Quality Measures: N/A, Headache (All Ages) - Headache: Neuroimaging Quality Measure: Measure #419: Overuse of Neuroimaging ICD10 Codes Entered: Yes View Detail: Yes Neurological Exam: Patient had a normal neurological exam. [G9535] Headache: Use of Neuroimaging: < CTA, CT, MRA or MRI was NOT ordered > [G9534] - Blood Pressure Screening View Details: Yes Does Patient Have Any of the Following: Active Dx of HTN Blood Pressure Classification: Hypertensive Reading Systolic Measurement: 153 Diastolic Measurement: 97 Screening for High Blood Pressure: Patient Exclusion, Hx of HTN [G9744]
--- NOTE | 2018-11-07 07:45 | RADIOLOGY REPORT ---
EXAM: PELVIS AND RIGHT HIP HISTORY: INJURY. TECHNIQUE: A single AP view of the pelvis and AP and frog leg views of the right hip were performed. FINDINGS: No evidence of fracture or dislocation. No lytic or blastic lesion. IMPRESSION: NEGATIVE AP PELVIS AND RIGHT HIP EXAMINATION. JOB NUMBER: [id number] MTDD
== END 2018-11-06 13:45 | disposition home or self-care (01) ==
LOC: ER 12:27
DX: G89.11 Acute pain due to trauma (principal); M25.551 Pain in right hip; E11.9 Type 2 diabetes mellitus without complications; W19.XXXA Unspecified fall, initial encounter; Z79.4 Long term (current) use of insulin; Z79.84 Long term (current) use of oral hypoglycemic drugs
CPT/HCPCS: 99283; 96372; 99284; 73502; J1885

== ENCOUNTER 2018-12-20 17:39 | Emergency (ER) | payer MEDICARE, OTHER, MEDICAID ==
--- NOTE | 2018-12-20 18:00 | Emergency Department Record ---
History of Present Illness - General Chief Complaint: Headache Migraine Stated Complaint: migraine Time Seen by Provider: 12/20/18 17:52 Source: Patient Mode of Arrival: Ambulatory Limitations: No limitations - History of Present Illness Initial Comments: The patient is here due to a migraine BISHOP for the last 4 hours. The pain is an aching pain over the temples bilaterally and behind the eyes. Since the onset 4 hours ago the pain has been gradually worsening. The patient states she has had exact same BISHOP's in the past and recently has been getting botox shots for them which are helping. She does have mild photophobia and nausea but no vomiting or arm or leg numbness or weakness. The patient did drive here with no difficulty. The patient was at her PCP's office when the pain began to worsen. MD Complaint: "Migraine" Onset/Timin -: Hour(s) Onset Description: Gradual Severity: Moderate Quality: Similar to previous headaches Consistency: Constant - Related Data Previous Rx's Medication Instructions Recorded Metformin HCl [Glucophage] 1,000 mg PO BID #180 tablet 05/21/15 Allergies Allergy/AdvReac Type Severity Reaction Status Date / Time cephalexin monohydrate Allergy Intermediate throat Verified 12/20/18 17:56 [From Keflex] swelling doxycycline Allergy Intermediate VOMITING Verified 12/20/18 17:56 fluoxetine HCl [From Prozac] Allergy Intermediate HYPERSENSIT Verified 12/20/18 17:56 IVITY Sulfa (Sulfonamide Allergy Intermediate HIVES Verified 12/20/18 17:56 Antibiotics) sulfamethoxazole Allergy Intermediate HIVES Verified 12/20/18 17:56 [From Bactrim] sumatriptan succinate Allergy Intermediate TACHYCARDIA Verified 12/20/18 17:56 [From Imitrex] trimethoprim [From Bactrim] Allergy Intermediate HIVES Verified 12/20/18 17:56 topiramate [From Topamax] AdvReac DIZZINESS Verified 12/20/18 17:56 Imitrex (oral only) AdvReac Intermediate TACHYCARDIA Uncoded 11/06/18 12:39 SILK TAPE AdvReac Mild RASH Uncoded 11/06/18 12:39 Review of Systems Constitutional: Denies: Chills, Fever Eyes: Denies: Eye discharge ENT: Denies: Congestion Respiratory: Denies: Cough, Dyspnea Cardiovascular: Denies: Arrhythmia Endocrine: Denies: Fatigue Gastrointestinal: Denies: Nausea Genitourinary: Denies: Dysuria Musculoskeletal: Denies: Back pain Past Medical History - SOCIAL HISTORY Smoking Status: Never smoker Drug Use: None - RESPIRATORY Hx Respiratory Disorders: Yes Hx Bronchitis: Yes (2015) Hx Sleep Apnea: Yes Hx of CPAP: No (PT IS SUPPOSED TO WEAR ONE) - CARDIOVASCULAR Hx Cardio Disorders: Yes Hx Edema: Yes - NEURO Hx Neuro Disorders: Yes Hx Headaches: Yes Hx of Migraines: Yes Hx Neuropathy: Yes (BLE) Hx Seizures: Yes (high fever related as a child none since 7yrs old) - GI Hx GI Disorders: Yes Hx Abdominal Pain: Yes - Hx Genitourinary Disorders: Yes Comment:: PCOS, endometriosis in abd cavity - ENDOCRINE Hx Endocrine Disorders: Yes Hx Diabetes: Yes Hx Thyroid Disease: No - MUSCULOSKELETAL Hx Musculoskeletal Disorders: Yes Comment:: Bulging discs, herniated disk, spinal stenosis - PSYCH Hx Psych Problems: Yes Hx Anxiety: Yes (panic attacks) Hx Behavior Problems: Yes (bipolar) - HEMATOLOGY/ONCOLOGY Hx Hematology/Oncology Disorders: No Family Medical History Hx Cancer: Father, Mother, Grandparents *Cancer Comment: lung, colon, prostate, melanoma Hx Diabetes: Father, Mother, Grandparents Hx Heart Disease: Father, Mother Physical Exam - General General Appearance: Alert, Oriented x3, Cooperative, Mild distress (due to the BISHOP.) - Head Head exam: Atraumatic, Normocephalic - Eye Eye exam: Normal appearance, PERRL, EOMI - ENT Throat exam: Normal inspection. negative: Tonsillar erythema, Tonsillar exudate - Neck Neck exam: Normal inspection, Full ROM. negative: Lymphadenopathy, Meningismus (The neck is very supple.), Tenderness - Respiratory Respiratory exam: Normal lung sounds bilaterally. negative: Respiratory distress - Cardiovascular Cardiovascular Exam: Regular rate, Normal rhythm, Normal heart sounds - GI/Abdominal GI/Abdominal exam: Soft, Normal bowel sounds. negative: Tenderness - Extremities Extremities exam: Normal inspection, Full ROM, Normal capillary refill. negative: Tenderness - Neurological Neurological exam: Alert, Altered, Normal gait, Oriented X3, Other (Neg Drift and Rhomberg exams.). negative: Abnormal gait, Motor sensory deficit - Skin Skin exam: negative: Rash Course - Reevaluation(s) Reevaluation #1: The patient is doing a lot better at this time. Her pain is almost completely resolved and she is ready for home. 12/20/18 18:45 Disposition Disposition: Discharge Clinical Impression: Migraine Qualifiers: Migraine type: unspecified Status migrainosus presence: without status migrainosus Intractability: not intractable Qualified Code(s): G43.909 - Migraine, unspecified, not intractable, without status migrainosus Disposition: Home, Self-Care Condition: (2) Stable Instructions: Migraine Headache (ED) Additional Instructions: The patient is to continue her regular migraine medicines and see her headache specialist later this week if not better. Forms: Patient Portal Access Time of Disposition: 18:29 Quality - Quality Measures Quality Measures: Headache (All Ages) - Headache: Neuroimaging Quality Measure: Measure #419: Overuse of Neuroimaging ICD10 Codes Entered: Yes View Detail: Yes Neurological Exam: Patient had a normal neurological exam. [G9535] Headache: Use of Neuroimaging: < CTA, CT, MRA or MRI was NOT ordered > [G9534] - Blood Pressure Screening View Details: Yes Does Patient Have Any of the Following: No Blood Pressure Classification: Pre-Hypertensive BP Reading Systolic Measurement: 121 Diastolic Measurement: 86 Screening for High Blood Pressure: < Pre-Hypertensive BP, F/U Documented > [ G8950] Pre-Hypertensive Follow-up Interventions: Referral to alternative/primary care provider.
[2018-12-20] MEDS ORDERED: DIPHENHYDRAMINE HCL 50 MG/ML VIAL IVP ONE (18:03)
[2018-12-20] MEDS ORDERED: 0.9 % SODIUM CHLORIDE 1,000 ML BAG IV ONE (18:03)
[2018-12-20] MEDS ORDERED: METOCLOPRAMIDE HCL 10 MG/2 ML VIAL IVP ONE (18:03)
[2018-12-20] MEDS ORDERED: KETOROLAC 30 MG/ML VIAL IVP ONE (18:03)
== END 2018-12-20 19:03 | disposition home or self-care (01) ==
LOC: ER 17:39
DX: G43.909 Migraine, unspecified, not intractable, without status migrainosus (principal); R11.0 Nausea; H53.149 Visual discomfort, unspecified
CPT/HCPCS: 99284 ×2; 96374; 96375; J1885; J1200; J2765; J7030

== ENCOUNTER 2019-01-07 16:08 | Emergency (ER) | payer MEDICARE, OTHER ==
--- NOTE | 2019-01-07 16:41 | Emergency Department Record ---
History of Present Illness - General Chief Complaint: Laceration(s) Stated Complaint: RT FOOT TOE Time Seen by Provider: 01/07/19 16:34 Source: Patient Mode of Arrival: Wheelchair Limitations: No limitations - History of Present Illness Initial Commments: 38 yo male presents with a injury to the right 4th toe. She has a small laceration to the base. She has neuropathy and is unsure exactly the mechanism but she thinks she stepped on a sharp edge of an air conditioner that is on the floor. She is up to date on tetanus. She does see a tool and equipment rental clerk weekly. No pus or redness. No recent inflections. Onset/Timin -: Days(s) Extremity Location: Right: Foot Place: Home Context: Accidental Associated Symptoms: None - [place] Coma Scale Eye Response: (4) Open spontaneously Motor Response: (6) Obeys commands Verbal Response: (5) Oriented Se Total: 15 - Related Data Hx Tetanus Toxoid Vaccination: Yes Year of Tetanus Vaccination: 2011 Patient Tetanus UTD (within 5 yrs): Yes Previous Rx's Medication Instructions Recorded Metformin HCl [Glucophage] 1,000 mg PO BID #180 tablet 05/21/15 Amoxicillin/Potassium Clav 1 tab PO BID #14 tab 01/07/19 [Augmentin 875-125 Tablet] Allergies Allergy/AdvReac Type Severity Reaction Status Date / Time cephalexin monohydrate Allergy Intermediate throat Verified 01/07/19 16:30 [From Keflex] swelling doxycycline Allergy Intermediate VOMITING Verified 01/07/19 16:30 fluoxetine HCl [From Prozac] Allergy Intermediate HYPERSENSIT Verified 01/07/19 16:30 IVITY Sulfa (Sulfonamide Allergy Intermediate HIVES Verified 01/07/19 16:30 Antibiotics) sulfamethoxazole Allergy Intermediate HIVES Verified 01/07/19 16:30 [From Bactrim] sumatriptan succinate Allergy Intermediate TACHYCARDIA Verified 01/07/19 16:30 [From Imitrex] trimethoprim [From Bactrim] Allergy Intermediate HIVES Verified 01/07/19 16:30 topiramate [From Topamax] AdvReac DIZZINESS Verified 01/07/19 16:30 Imitrex (oral only) AdvReac Intermediate TACHYCARDIA Uncoded 01/07/19 16:30 SILK TAPE AdvReac Mild RASH Uncoded 01/07/19 16:30 Travel Screening - Travel/Exposure Within Last 30 Days Have you traveled within the last 30 days?: No - Travel/Exposure Within Last Year Have you traveled outside the [place] in the last year?: No - Additonal Travel Details Have you been exposed to anyone with a communicable illness?: No - Travel Symptoms Symptom Screening: None Review of Systems Constitutional: Denies: Chills, Fever, Malaise, Weakness Eyes: Denies: Eye discharge ENT: Denies: Congestion, Throat pain Respiratory: Denies: Cough Cardiovascular: Denies: Chest pain, Syncope Endocrine: Denies: Fatigue Gastrointestinal: Denies: Abdominal pain, Diarrhea, Nausea, Vomiting Genitourinary: Denies: Dysuria Musculoskeletal: Denies: Arthralgia, Joint swelling, Myalgia Skin: Reports: Other (Laceration). Denies: Bruising, Change in color, Rash Neurological: Denies: Headache, Weakness Hematological/Lymphatic: Denies: Blood Clots, Easy bleeding, Easy bruising Past Medical History - SOCIAL HISTORY Smoking Status: Never smoker Alcohol Use: None Drug Use: None - RESPIRATORY Hx Respiratory Disorders: Yes Hx Bronchitis: Yes (2015) Hx Sleep Apnea: Yes Hx of CPAP: No (PT IS SUPPOSED TO WEAR ONE) - CARDIOVASCULAR Hx Cardio Disorders: Yes Hx Edema: Yes - NEURO Hx Neuro Disorders: Yes Hx Headaches: Yes Hx of Migraines: Yes Hx Neuropathy: Yes (BLE) Hx Seizures: Yes (high fever related as a child none since 7yrs old) - GI Hx GI Disorders: Yes Hx Abdominal Pain: Yes - Hx Genitourinary Disorders: Yes Comment:: PCOS, endometriosis in abd cavity - ENDOCRINE Hx Endocrine Disorders: Yes Hx Diabetes: Yes Hx Thyroid Disease: No - MUSCULOSKELETAL Hx Musculoskeletal Disorders: Yes Comment:: Bulging discs, herniated disk, spinal stenosis, Dr Jacobsen tool and equipment rental clerk in [place] - PSYCH Hx Psych Problems: Yes Hx Anxiety: Yes (panic attacks) Hx Behavior Problems: Yes (bipolar) - HEMATOLOGY/ONCOLOGY Hx Hematology/Oncology Disorders: No Family Medical History Any Significant Family History?: Yes Hx Cancer: Father, Mother, Grandparents *Cancer Comment: lung, colon, prostate, melanoma Hx Diabetes: Father, Mother, Grandparents Hx Heart Disease: Father, Mother Physical Exam - General General Appearance: Alert, Oriented x3, Cooperative, No acute distress Limitations: No limitations - Head Head exam: Atraumatic, Normal inspection - Eye Eye exam: Normal appearance. negative: Conjunctival injection - ENT ENT exam: Normal exam Ear exam: Normal external inspection Nasal Exam: Normal inspection Mouth exam: Normal external inspection - Neck Neck exam: Normal inspection - Respiratory Respiratory exam: Normal lung sounds bilaterally. negative: Respiratory distress - Cardiovascular Cardiovascular Exam: Regular rate, Normal rhythm, Normal heart sounds - Extremities Extremities exam: negative: Normal inspection Image of Feet: 1 - 1cm laceration, no FB, flexion intact, no visible FB - Neurological Neurological exam: Alert, Oriented X3 - Psychiatric Psychiatric exam: Normal affect, Normal mood. negative: Agitated, Anxious - Skin Type of lesion: Laceration Course Vital Signs 01/07/19 16:20 Temperature 99.1 F Pulse Rate 93 H Respiratory 18 Rate Blood Pressure 120/81 Pulse Ox 97 - Reevaluation(s) Reevaluation #1: 1cm laceration of the right 4th toe Wound was cleaned and prepped in sterile fashion, no residual FB identified on examination. The wound was copiously irrigated with NS with direct visualization Wound was anesthetized with mL of 1% Lidocaine The laceration was repaired with 2 sutures in interrupted fashion. Patient tolerated the procedure well without complications. We discussed home care, reasons for immediate return if any concerns, and suture removal per your tool and equipment rental clerk 01/07/19 16:40 We discussed at length her risks of infection and poor healing She has an appointment on Tuesday with her tool and equipment rental clerk We discussed home care, BID cleaning, and donjoy for support and protection 01/07/19 16:58 Disposition Disposition: Discharge Clinical Impression: Laceration of toe Qualifiers: Encounter type: initial encounter Toe: unspecified toe Damage to nail status: without damage Foreign body presence: without foreign body Laterality: right Qualified Code(s): S91.119A - Laceration without foreign body of unspecified toe without damage to nail, initial encounter Disposition: Home, Self-Care Condition: (1) Good Instructions: Laceration (ED) Additional Instructions: Clean the area twice daily Use the boot for support and protection Follow up on Tuesday with your tool and equipment rental clerk as scheduled Prescriptions: Amoxicillin/Potassium Clav [Augmentin 875-125 Tablet] 1 tab PO BID #14 tab Forms: Patient Portal Access Time of Disposition: 16:59 Quality - Quality Measures Quality Measures: N/A - Blood Pressure Screening Does Patient Have Any of the Following: No Blood Pressure Classification: Pre-Hypertensive BP Reading Systolic Measurement: 120 Diastolic Measurement: 81 Screening for High Blood Pressure: < Pre-Hypertensive BP, F/U Documented > [ G8950] Pre-Hypertensive Follow-up Interventions: Referral to alternative/primary care provider.
[2019-01-07] MEDS: AMOX TR/POT CLAV. 500MG/125MG TABLET PO ONE (17:05)
== END 2019-01-07 17:33 | disposition home or self-care (01) ==
LOC: ER 16:08
DX: S91.114A Laceration without foreign body of right lesser toe(s) without damage to nail, initial encounter (principal); W26.8XXA Contact with other sharp object(s), not elsewhere classified, initial encounter; Y92.009 Unspecified place in unspecified non-institutional (private) residence as the place of occurrence of the external cause; E11.9 Type 2 diabetes mellitus without complications; Z79.4 Long term (current) use of insulin; Z79.84 Long term (current) use of oral hypoglycemic drugs
CPT/HCPCS: 12041; 99283

== ENCOUNTER 2019-02-14 16:08 | Emergency (ER) | payer MEDICARE, OTHER, MEDICAID ==
[2019-02-14] MEDS ORDERED: DIPHENHYDRAMINE HCL 50 MG/ML VIAL IVP ONE (16:22)
[2019-02-14] MEDS ORDERED: KETOROLAC 30 MG/ML VIAL IVP ONE (16:22)
[2019-02-14] MEDS ORDERED: METOCLOPRAMIDE HCL 10 MG/2 ML VIAL IVP ONE (16:22)
--- NOTE | 2019-02-14 16:24 | Emergency Department Record ---
History of Present Illness - General Chief Complaint: Headache Migraine Stated Complaint: MIGRAINE Time Seen by Provider: 02/14/19 16:19 Source: Patient Mode of Arrival: Ambulatory Limitations: No limitations - History of Present Illness Initial Comments: The patient is here due to a migraine BISHOP for the last 3 days. The onset was gradual and the pain feels like a pulsating BISHOP all over. She does have mild photophobia with this BISHOP and has a LONG hx of similar issues. She frequently has to come to the ER for migraine BISHOP's like this. She did drive here with no difficulty. Complaint: Headache Onset/Timin -: Days(s) Onset Description: Gradual Severity scale (1-10): 9 Quality: Pulsatile, Throbbing, Similar to previous headaches Consistency: Constant Improves With: Nothing Associated Symptoms: Photophobia, Sensitivity to sound, Vision loss, Other - Related Data Previous Rx's Medication Instructions Recorded Metformin HCl [Glucophage] 1,000 mg PO BID #180 tablet 05/21/15 Allergies Allergy/AdvReac Type Severity Reaction Status Date / Time cephalexin monohydrate Allergy Intermediate throat Verified 02/14/19 16:20 [From Keflex] swelling doxycycline Allergy Intermediate VOMITING Verified 02/14/19 16:20 fluoxetine HCl [From Prozac] Allergy Intermediate HYPERSENSIT Verified 02/14/19 16:20 IVITY Sulfa (Sulfonamide Allergy Intermediate HIVES Verified 02/14/19 16:20 Antibiotics) sulfamethoxazole Allergy Intermediate HIVES Verified 02/14/19 16:20 [From Bactrim] sumatriptan succinate Allergy Intermediate TACHYCARDIA Verified 02/14/19 16:20 [From Imitrex] trimethoprim [From Bactrim] Allergy Intermediate HIVES Verified 02/14/19 16:20 topiramate [From Topamax] AdvReac DIZZINESS Verified 02/14/19 16:20 Imitrex (oral only) AdvReac Intermediate TACHYCARDIA Uncoded 02/14/19 16:20 SILK TAPE AdvReac Mild RASH Uncoded 02/14/19 16:20 Travel Screening - Travel/Exposure Within Last 30 Days Have you traveled within the last 30 days?: No - Travel/Exposure Within Last Year Have you traveled outside the [place] in the last year?: No - Additonal Travel Details Have you been exposed to anyone with a communicable illness?: No - Travel Symptoms Symptom Screening: Headache Review of Systems Constitutional: Denies: Chills, Fever Eyes: Denies: Eye discharge ENT: Denies: Congestion Respiratory: Denies: Cough Cardiovascular: Denies: Arrhythmia Endocrine: Denies: Fatigue Gastrointestinal: Denies: Abdominal pain Genitourinary: Denies: Dysuria Musculoskeletal: Denies: Arthralgia Skin: Denies: Bruising Past Medical History - SOCIAL HISTORY Smoking Status: Never smoker Alcohol Use: Rare Drug Use: Rare Drug Use Detail:: Marijuana - RESPIRATORY Hx Respiratory Disorders: Yes Hx Bronchitis: Yes (2015) Hx Sleep Apnea: Yes Hx of CPAP: No (PT IS SUPPOSED TO WEAR ONE) - CARDIOVASCULAR Hx Cardio Disorders: Yes Hx Edema: Yes - NEURO Hx Neuro Disorders: Yes Hx Headaches: Yes Hx of Migraines: Yes Hx Neuropathy: Yes (BLE) Hx Seizures: Yes (high fever related as a child none since 7yrs old) - GI Hx GI Disorders: Yes Hx Abdominal Pain: Yes - Hx Genitourinary Disorders: Yes Comment:: PCOS, endometriosis in abd cavity - ENDOCRINE Hx Endocrine Disorders: Yes Hx Diabetes: Yes Hx Thyroid Disease: No - MUSCULOSKELETAL Hx Musculoskeletal Disorders: Yes Comment:: Bulging discs, herniated disk, spinal stenosis, 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 negative: Conjunctival injection - ENT Throat exam: Normal inspection. negative: Tonsillar erythema, Tonsillar exudate - Neck Neck exam: Normal inspection, Full ROM. negative: Tenderness - Respiratory Respiratory exam: Normal lung sounds bilaterally. negative: Respiratory distress - Cardiovascular Cardiovascular Exam: Regular rate, Normal rhythm, Normal heart sounds - GI/Abdominal GI/Abdominal exam: Soft, Normal bowel sounds. negative: Tenderness - Extremities Extremities exam: Normal inspection, Full ROM, Normal capillary refill. negative: Tenderness - Back Back exam: Reports: Normal inspection. Denies: Vertebral tenderness - Neurological Neurological exam: Alert, Altered, Normal gait, Oriented X3, Other (Neg Drift and RHomberg exams.). negative: Abnormal gait, Motor sensory deficit Course Vital Signs 02/14/19 16:13 Temperature 98.1 F Pulse Rate 122 H Respiratory 18 Rate Blood Pressure 105/64 Pulse Ox 96 - Reevaluation(s) Reevaluation #1: The patient is doing better at this time. She is resting comfortably and states her pain is 50% improved. 02/14/19 17:05 Reevaluation #2: The patient is doing better at this time. She states the pain is down to a 3 and it is resolving like it normally does. She feels ready for home. 02/14/19 17:24 Disposition Disposition: Discharge Clinical Impression: Migraine Qualifiers: Migraine type: unspecified Status migrainosus presence: without status migrainosus Intractability: not intractable Qualified Code(s): G43.909 - Migraine, unspecified, not intractable, without status migrainosus Disposition: Home, Self-Care Condition: (2) Stable Instructions: Migraine Headache (ED) Additional Instructions: Please continue your regular medicines and please see your family doctor for recheck later this week. Return to the ER for any worsening symptoms. Forms: Patient Portal Access Time of Disposition: 17:25 Quality - Quality Measures Quality Measures: Headache (All Ages) - Headache: Neuroimaging Quality Measure: Measure #419: Overuse of Neuroimaging ICD10 Codes Entered: Yes View Detail: Yes Neurological Exam: Patient had a normal neurological exam. [G9535] Headache: Use of Neuroimaging: < CTA, CT, MRA or MRI was NOT ordered > [G9534] - Blood Pressure Screening View Details: Yes Does Patient Have Any of the Following: No Blood Pressure Classification: Normal BP Reading Systolic Measurement: 105 Diastolic Measurement: 64 Screening for High Blood Pressure: < Normal BP, F/U Not Required > [G8783]
[2019-02-14] MEDS ORDERED: 0.9 % SODIUM CHLORIDE 1,000 ML BAG IV ONE (16:42)
== END 2019-02-14 17:57 | disposition home or self-care (01) ==
LOC: ER 16:08
DX: G43.909 Migraine, unspecified, not intractable, without status migrainosus (principal); H53.149 Visual discomfort, unspecified
CPT/HCPCS: 99284 ×2; 96374; 96375; J1885; J1200; J2765; J7030

== ENCOUNTER 2019-04-13 22:21 | Emergency (ER) | payer MEDICARE, OTHER ==
[2019-04-13] MEDS ORDERED: METOCLOPRAMIDE HCL 10 MG/2 ML VIAL IVP ONE (22:59)
[2019-04-13] MEDS ORDERED: KETOROLAC 30 MG/ML VIAL IVP ONE (22:59)
[2019-04-13] MEDS ORDERED: DIPHENHYDRAMINE HCL 50 MG/ML VIAL IVP ONE (22:59)
[2019-04-13] MEDS ORDERED: 0.9 % SODIUM CHLORIDE 1000ML 1,000 ML IV SCH (23:00)
--- NOTE | 2019-04-13 23:06 | Emergency Department Record ---
History of Present Illness - General Chief Complaint: Headache Migraine Stated Complaint: BISHOP Time Seen by Provider: 04/13/19 22:59 Source: Patient Mode of Arrival: Ambulatory Limitations: No limitations - History of Present Illness Initial Comments: 38 yo female presents to ED for evaluation of a "migraine headache" that began yesterday due to stress, reports similar headache symptoms previously. Patient denies fevers, chills, neck stiffness, or anticoagulation use. Patient reports similar symptoms with previous headache episodes. MD Complaint: Headache Onset/Timin -: Days(s) Onset Description: Gradual Location: Retro-orbital, Temporal Severity scale (1-10): 9 Quality: Sharp, Similar to previous headaches Consistency: Constant Improves With: Cold therapy, Rest Worsens With: Light, Movement of head/neck, Noise Associated Symptoms: Nausea, Photophobia, Sensitivity to sound Treatments Prior to Arrival: Other Treatment Prior to Arrival Comment:: reglan, benadryl pills - Related Data Allergies Allergy/AdvReac Type Severity Reaction Status Date / Time cephalexin monohydrate Allergy Intermediate throat Verified 04/13/19 22:59 [From Keflex] swelling doxycycline Allergy Intermediate VOMITING Verified 04/13/19 22:59 fluoxetine HCl [From Prozac] Allergy Intermediate HYPERSENSIT Verified 04/13/19 22:59 IVITY Sulfa (Sulfonamide Allergy Intermediate HIVES Verified 04/13/19 22:59 Antibiotics) sulfamethoxazole Allergy Intermediate HIVES Verified 04/13/19 22:59 [From Bactrim] sumatriptan succinate Allergy Intermediate TACHYCARDIA Verified 04/13/19 22:59 [From Imitrex] trimethoprim [From Bactrim] Allergy Intermediate HIVES Verified 04/13/19 22:59 topiramate [From Topamax] AdvReac DIZZINESS Verified 04/13/19 22:59 Imitrex (oral only) AdvReac Intermediate TACHYCARDIA Uncoded 02/14/19 16:20 SILK TAPE AdvReac Mild RASH Uncoded 02/14/19 16:20 Travel Screening - Travel/Exposure Within Last 30 Days Have you traveled within the last 30 days?: No - Travel Symptoms Symptom Screening: None Review of Systems Constitutional: Denies: Chills, Fever, Malaise, Night sweats Eyes: Denies: Eye discharge, Eye pain ENT: Denies: Congestion, Dental pain, Ear pain Respiratory: Denies: Cough, Dyspnea Cardiovascular: Denies: Chest pain, Dyspnea on exertion Endocrine: Denies: Fatigue, Heat or cold intolerance Gastrointestinal: Denies: Abdominal pain, Nausea, Vomiting Genitourinary: Denies: Incontinence, Retention Musculoskeletal: Denies: Arthralgia, Back pain Skin: Denies: Bruising, Change in color Neurological: Reports: Headache. Denies: Abnormal gait, Confusion, Seizure Psychiatric: Denies: Anxiety Hematological/Lymphatic: Denies: Anemia, Blood Clots Past Medical History - SOCIAL HISTORY Smoking Status: Never smoker - RESPIRATORY Hx Respiratory Disorders: Yes Hx Bronchitis: Yes (2015) Hx Sleep Apnea: Yes Hx of CPAP: No (PT IS SUPPOSED TO WEAR ONE) - CARDIOVASCULAR Hx Cardio Disorders: Yes Hx Edema: Yes - NEURO Hx Neuro Disorders: Yes Hx Headaches: Yes Hx of Migraines: Yes Hx Neuropathy: Yes (BLE) Hx Seizures: Yes (high fever related as a child none since 7yrs old) - GI Hx GI Disorders: Yes Hx Abdominal Pain: Yes - Hx Genitourinary Disorders: Yes Comment:: PCOS, endometriosis in abd cavity - ENDOCRINE Hx Endocrine Disorders: Yes Hx Diabetes: Yes Hx Thyroid Disease: No - MUSCULOSKELETAL Hx Musculoskeletal Disorders: Yes Comment:: Bulging discs, herniated disk, spinal stenosis, 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 [place] - PSYCH Hx Psych Problems: Yes Hx Anxiety: Yes (panic attacks) Hx Behavior Problems: Yes (bipolar) - HEMATOLOGY/ONCOLOGY Hx Hematology/Oncology Disorders: No Family Medical History Any Significant Family History?: Yes Hx Cancer: Father, Mother, Grandparents *Cancer Comment: lung, colon, prostate, melanoma Hx Diabetes: Father, Mother, Grandparents Hx Heart Disease: Father, Mother Physical Exam - General General Appearance: Alert, Oriented x3, Cooperative, Mild distress Limitations: No limitations - Head Head exam: Atraumatic, Normocephalic, Normal inspection Head exam detail: negative: Abrasion, Contusion, Marcelino's sign, General tenderness, Hematoma, Laceration - Eye Eye exam: Normal appearance, PERRL. negative: Conjunctival injection, Periorbital swelling, Periorbital tenderness, Scleral icterus - ENT Ear exam: negative: Auricular hematoma, Auricular trauma Nasal Exam: negative: Active bleeding, Discharge, Dried blood, Foreign body Mouth exam: negative: Drooling, Laceration, Muffled voice, Tongue elevation - Neck Neck exam: Normal inspection. negative: Meningismus, Tenderness - Respiratory Respiratory exam: Normal lung sounds bilaterally. negative: Rales, Respiratory distress, Rhonchi, Stridor - Cardiovascular Cardiovascular Exam: Regular rate, Normal rhythm, Normal heart sounds - GI/Abdominal GI/Abdominal exam: Soft. negative: Rebound, Rigid, Tenderness - Rectal Rectal exam: Deferred - exam: Deferred - Extremities Extremities exam: Normal inspection. negative: Pedal edema, Tenderness - Back Back exam: Denies: CVA tenderness (R), CVA tenderness (L) - Neurological Neurological exam: Alert, Normal gait, Oriented X3 - Psychiatric Psychiatric exam: Normal affect, Normal mood - Skin Skin exam: Normal color. negative: Abrasion Type of lesion: negative: abrasion Course Vital Signs 04/13/19 22:47 Temperature 99.0 F Pulse Rate [ 102 H Left] Respiratory 16 Rate Blood Pressure 122/71 [Left] Pulse Ox 97 - Reevaluation(s) Reevaluation #1: 04/13/19 23:53 Patient was reassessed, reports that she is feeling much better and is ready to go home at this time. Patient appears stable for discharge at this time. Disposition Disposition: Discharge Clinical Impression: Acute headache Qualifiers: Headache type: unspecified Intractability: not intractable Qualified Code(s): R51 - Headache Disposition: Home, Self-Care Condition: (2) Stable Instructions: Acute Headache (ED) Additional Instructions: Return to ED if your symptoms worsen or if you have any concerns. Follow-up with your family doctor in 3-5 days as directed. Forms: Patient Portal Access Time of Disposition: 23:53 Quality - Quality Measures Quality Measures: N/A, Headache (All Ages) - Headache: Neuroimaging Quality Measure: Measure #419: Overuse of Neuroimaging ICD10 Codes Entered: Yes Neurological Exam: Patient had a normal neurological exam. [G9535] Headache: Use of Neuroimaging: < CTA, CT, MRA or MRI was NOT ordered > [G9534] - Blood Pressure Screening Does Patient Have Any of the Following: No Blood Pressure Classification: Pre-Hypertensive BP Reading Systolic Measurement: 122 Diastolic Measurement: 71 Screening for High Blood Pressure: < Pre-Hypertensive BP, F/U Documented > [G8950] Pre-Hypertensive Follow-up Interventions: Referral to alternative/primary care provider.
== END 2019-04-14 00:10 | disposition home or self-care (01) ==
LOC: ER 22:21
DX: R51 Headache (principal); R11.0 Nausea; H53.149 Visual discomfort, unspecified
CPT/HCPCS: 96374; 96375; 99284; J1200; J1885; J2765; J7030

== ENCOUNTER 2019-06-05 15:39 | Emergency (ER) | payer MEDICARE, OTHER ==
[2019-06-05] MEDS ORDERED: 0.9 % SODIUM CHLORIDE 1,000 ML BAG IV ONE (16:04)
[2019-06-05] MEDS ORDERED: METOCLOPRAMIDE HCL 10 MG/2 ML VIAL IVP ONE (16:05)
[2019-06-05] MEDS ORDERED: KETOROLAC 30 MG/ML VIAL IVP ONE (16:05)
[2019-06-05] MEDS ORDERED: DIPHENHYDRAMINE HCL 50 MG/ML VIAL IVP ONE (16:05)
--- NOTE | 2019-06-05 16:12 | Emergency Department Record ---
History of Present Illness - General Chief Complaint: Headache Migraine Stated Complaint: MIGRAINE Time Seen by Provider: 06/05/19 16:00 Source: Patient Mode of Arrival: Ambulatory Limitations: No limitations - History of Present Illness Initial Comments: pt is having her typical migraine with nausea, no vomiting MD Complaint: "Migraine" Onset/Timin -: Days(s) Onset Description: Gradual Location: Right, Temporal Severity: Moderate Severity scale (1-10): 9 Quality: Throbbing Consistency: Constant Improves With: Nothing Worsens With: None Associated Symptoms: Nausea Treatments Prior to Arrival: None - Related Data Previous Rx's Medication Instructions Recorded Ondansetron [Zofran Odt] 4 mg PO Q8H #15 tab.rapdis 05/01/19 Allergies Allergy/AdvReac Type Severity Reaction Status Date / Time cephalexin monohydrate Allergy Intermediate throat Verified 06/05/19 15:50 [From Keflex] swelling doxycycline Allergy Intermediate VOMITING Verified 06/05/19 15:50 fluoxetine HCl [From Prozac] Allergy Intermediate HYPERSENSIT Verified 06/05/19 15:50 IVITY Sulfa (Sulfonamide Allergy Intermediate HIVES Verified 06/05/19 15:50 Antibiotics) sulfamethoxazole Allergy Intermediate HIVES Verified 06/05/19 15:50 [From Bactrim] sumatriptan succinate Allergy Intermediate TACHYCARDIA Verified 06/05/19 15:50 [From Imitrex] trimethoprim [From Bactrim] Allergy Intermediate HIVES Verified 06/05/19 15:50 topiramate [From Topamax] AdvReac DIZZINESS Verified 06/05/19 15:50 Imitrex (oral only) AdvReac Intermediate TACHYCARDIA Uncoded 02/14/19 16:20 SILK TAPE AdvReac Mild RASH Uncoded 02/14/19 16:20 Travel Screening - Travel/Exposure Within Last 30 Days Have you traveled within the last 30 days?: No Review of Systems Reviewed: No additional complaints except as noted below Constitutional: Reports: As per HPI. Denies: Chills, Fever, Malaise, Night sweats, Weakness, Weight change Eyes: Reports: As per HPI. Denies: Eye discharge, Eye pain, Photophobia, Vision change ENT: Reports: As per HPI. Denies: Congestion, Dental pain, Ear pain, Epistaxis, Hearing loss, Throat pain Respiratory: Reports: As per HPI. Denies: Cough, Dyspnea, Hemoptysis, Stridor, Wheezes Cardiovascular: Reports: As per HPI. Denies: Arrhythmia, Chest pain, Dyspnea on exertion, Edema, Murmurs, Orthopnea, Palpitations, Paroxysmal nocturnal dyspnea, Rheumatic Fever, Syncope Endocrine: Reports: As per HPI. Denies: Fatigue, Heat or cold intolerance, Polydipsia, Polyuria Gastrointestinal: Reports: As per HPI. Denies: Abdominal pain, Constipation, Diarrhea, Hematemesis, Hematochezia, Melena, Nausea, Vomiting Genitourinary: Reports: As per HPI. Denies: Abnormal menses, Discharge, Dyspareunia, Dysuria, Frequency, Hematuria, Incontinence, Retention, Urgency Musculoskeletal: Reports: As per HPI. Denies: Arthralgia, Back pain, Gout, Joint swelling, Myalgia, Neck pain Skin: Reports: As per HPI. Denies: Bruising, Change in color, Change in hair/nails, Lesions, Pruritus, Rash Neurological: Reports: As per HPI, Headache. Denies: Abnormal gait, Confusion, Numbness, Paresthesias, Seizure, Tingling, Tremors, Vertigo, Weakness Psychiatric: Reports: As per HPI. Denies: Anxiety, Auditory hallucinations, Depression, Homicidal thoughts, Suicidal thoughts, Visual hallucinations Hematological/Lymphatic: Reports: As per HPI. Denies: Anemia, Blood Clots, Easy bleeding, Easy bruising, Swollen glands Past Medical History - SOCIAL HISTORY Smoking Status: Never smoker Alcohol Use: None Drug Use: None - RESPIRATORY Hx Respiratory Disorders: Yes Hx Bronchitis: Yes (2015) Hx Sleep Apnea: Yes Hx of CPAP: No (PT IS SUPPOSED TO WEAR ONE) - CARDIOVASCULAR Hx Cardio Disorders: Yes Hx Edema: Yes - NEURO Hx Neuro Disorders: Yes Hx Headaches: Yes Hx of Migraines: Yes Hx Neuropathy: Yes (BLE) Hx Seizures: Yes (high fever related as a child none since 7yrs old) - GI Hx GI Disorders: Yes Hx Abdominal Pain: Yes - Hx Genitourinary Disorders: Yes Comment:: PCOS, endometriosis in abd cavity - ENDOCRINE Hx Endocrine Disorders: Yes Hx Diabetes: Yes Hx Thyroid Disease: No - MUSCULOSKELETAL Hx Musculoskeletal Disorders: Yes Comment:: Bulging discs, herniated disk, spinal stenosis, 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 [place] - PSYCH Hx Psych Problems: Yes Hx Anxiety: Yes (panic attacks) Hx Behavior Problems: Yes (bipolar) - HEMATOLOGY/ONCOLOGY Hx Hematology/Oncology Disorders: No Family Medical History Any Significant Family History?: Yes Hx Cancer: Father, Mother, Grandparents *Cancer Comment: lung, colon, prostate, melanoma Hx Diabetes: Father, Mother, Grandparents Hx Heart Disease: Father, Mother Physical Exam - General General Appearance: Alert, Oriented x3, Cooperative, Mild distress - Head Head exam: Normal inspection - Eye Eye exam: Normal appearance, PERRL, EOMI Pupils: Normal accommodation - ENT ENT exam: Normal exam, Mucous membranes moist, Normal external ear exam, Normal orophraynx Ear exam: Normal external inspection. negative: External canal tenderness Nasal Exam: Normal inspection. negative: Discharge, Sinus tenderness Mouth exam: Normal external inspection, Tongue normal Teeth exam: Normal inspection. negative: Dental caries Throat exam: Normal inspection. negative: Tonsillar erythema, Tonsillar exudate - Neck Neck exam: Normal inspection, Full ROM. negative: Tenderness - Respiratory Respiratory exam: Normal lung sounds bilaterally. negative: Respiratory distress - Cardiovascular Cardiovascular Exam: Regular rate, Normal rhythm, Normal heart sounds - GI/Abdominal GI/Abdominal exam: Soft, Normal bowel sounds. negative: Tenderness - Rectal Rectal exam: Deferred - exam: Deferred - Extremities Extremities exam: Normal inspection, Full ROM, Normal capillary refill. negative: Tenderness - Back Back exam: Reports: Normal inspection, Full ROM. Denies: Muscle spasm, Rash noted, Tenderness - Neurological Neurological exam: Alert, CN II-XII intact, Normal gait, Oriented X3 - Psychiatric Psychiatric exam: Normal affect, Normal mood - Skin Skin exam: Dry, Intact, Normal color, Warm Course Vital Signs 06/05/19 15:50 Temperature 98.5 F Pulse Rate 100 H Respiratory 18 Rate Blood Pressure 122/83 Pulse Ox 98 - Reevaluation(s) Reevaluation #1: 06/05/19 17:44 pt feels better Medical Decision Making - Lab Data Result diagrams: 06/05/19 16:00 Disposition Disposition: Discharge Clinical Impression: Migraine Qualifiers: Migraine type: unspecified Status migrainosus presence: without status migrainosus Intractability: not intractable Qualified Code(s): G43.909 - Migra ine, unspecified, not intractable, without status migrainosus Disposition: Home, Self-Care Condition: (1) Good Instructions: Migraine Headache (ED) Additional Instructions: follow up with family doctor. return sooner if worse. Forms: Patient Portal Access Quality - Quality Measures Quality Measures: N/A - Blood Pressure Screening Does Patient Have Any of the Following: No Blood Pressure Classification: Pre-Hypertensive BP Reading Systolic Measurement: 122 Diastolic Measurement: 83 Screening for High Blood Pressure: < Pre-Hypertensive BP, F/U Documented > [G89 50] Pre-Hypertensive Follow-up Interventions: Follow-up with rescreen every year.
[2019-06-05 16:34] LABS: BLOOD UREA NITROGEN 9 mg/dL (6-20); CREATININE 0.4 mg/dL (0.5-0.9); EST GLOMERULAR FILTRATION RATE > 60 mL/min
[2019-06-05 16:37] LABS: GLUCOSE,RANDOM 428 mg/dL (74-109)
== END 2019-06-05 18:21 | disposition home or self-care (01) ==
LOC: ER 15:39
DX: G43.909 Migraine, unspecified, not intractable, without status migrainosus (principal); R11.0 Nausea; E11.9 Type 2 diabetes mellitus without complications; Z79.4 Long term (current) use of insulin
CPT/HCPCS: 99284 ×2; 96374; 96375; 96361; 80048; J1885; J1200; J2765; J7030

== ENCOUNTER 2019-07-23 15:50 | Emergency (ER) | payer MEDICARE, OTHER ==
[2019-07-23] MEDS ORDERED: METOCLOPRAMIDE HCL 10 MG/2 ML VIAL IVP ONE (16:47)
[2019-07-23] MEDS ORDERED: KETOROLAC 30 MG/ML VIAL IVP ONE (16:47)
[2019-07-23] MEDS ORDERED: DIPHENHYDRAMINE HCL 50 MG/ML VIAL IVP ONE (16:47)
--- NOTE | 2019-07-23 16:57 | Emergency Department Record ---
History of Present Illness - General Chief Complaint: Headache Migraine Stated Complaint: MIGRAINE,NAUSEA Time Seen by Provider: 07/23/19 16:47 Source: Patient Mode of Arrival: Ambulatory Limitations: No limitations - History of Present Illness Initial Comments: 39 yo female presents with a headache similar to her migraines. She has had symptoms for about two days. The headache is frontal. She has light sensitivity and nausea. No fever. No trauma. She states this migraine started with an anxiety attack. MD Complaint: "Migraine" Onset/Timin -: Days(s) (2) Onset Description: Gradual Location: Frontal, Temporal Severity: Moderate Quality: Aching, Similar to previous headaches (No new features or changes) Consistency: Constant Improves With: Nothing Worsens With: None Associated Symptoms: Nausea, Photophobia Treatments Prior to Arrival: Acetaminophen, Migraine medication Treatment Prior to Arrival Comment:: benadryl, Toradol and reglan at home last night. - Related Data Previous Rx's Medication Instructions Recorded Ondansetron [Zofran Odt] 4 mg PO Q8H #15 tab.rapdis 05/01/19 Allergies Allergy/AdvReac Type Severity Reaction Status Date / Time cephalexin monohydrate Allergy Intermediate throat Verified 07/23/19 16:23 [From Keflex] swelling doxycycline Allergy Intermediate VOMITING Verified 07/23/19 16:23 fluoxetine HCl [From Prozac] Allergy Intermediate HYPERSENSIT Verified 07/23/19 16:23 IVITY Sulfa (Sulfonamide Allergy Intermediate HIVES Verified 07/23/19 16:23 Antibiotics) sulfamethoxazole Allergy Intermediate HIVES Verified 07/23/19 16:23 [From Bactrim] sumatriptan succinate Allergy Intermediate TACHYCARDIA Verified 07/23/19 16:23 [From Imitrex] trimethoprim [From Bactrim] Allergy Intermediate HIVES Verified 07/23/19 16:23 topiramate [From Topamax] AdvReac DIZZINESS Verified 07/23/19 16:23 Arredondo powder Allergy takes Uncoded 07/23/19 16:23 breath away Imitrex (oral only) AdvReac Intermediate TACHYCARDIA Uncoded 07/23/19 16:23 SILK TAPE AdvReac Mild RASH Uncoded 07/23/19 16:23 Travel Screening - Travel/Exposure Within Last 30 Days Have you traveled within the last 30 days?: No - Travel/Exposure Within Last Year Have you traveled outside the [place] in the last year?: No - Additonal Travel Details Have you been exposed to anyone with a communicable illness?: No - Travel Symptoms Symptom Screening: Headache, Vomiting Review of Systems Constitutional: Denies: Chills, Fever, Malaise, Weakness, Other Eyes: Reports: Photophobia. Denies: Eye discharge, Eye pain, Vision change ENT: Denies: Congestion, Throat pain Respiratory: Denies: Cough, Dyspnea, Hemoptysis, Wheezes Cardiovascular: Denies: Chest pain, Palpitations, Syncope Endocrine: Denies: Fatigue, Polydipsia, Polyuria Gastrointestinal: Reports: Nausea. Denies: Abdominal pain, Diarrhea, Vomiting Genitourinary: Denies: Dysuria, Urgency Musculoskeletal: Denies: Arthralgia, Back pain, Myalgia, Neck pain Skin: Denies: Bruising, Change in color, Rash Neurological: Reports: Headache. Denies: Numbness, Tremors, Vertigo, Weakness Psychiatric: Denies: Anxiety Hematological/Lymphatic: Denies: Easy bleeding, Easy bruising Past Medical History - SOCIAL HISTORY Smoking Status: Never smoker Alcohol Use: Rare Drug Use: Occasional Drug Use Detail:: Marijuana - RESPIRATORY Hx Respiratory Disorders: Yes Hx Bronchitis: Yes (2015) Hx Sleep Apnea: Yes Hx of CPAP: No (PT IS SUPPOSED TO WEAR ONE) - CARDIOVASCULAR Hx Cardio Disorders: Yes Hx Edema: Yes - NEURO Hx Neuro Disorders: Yes Hx Headaches: Yes Hx of Migraines: Yes Hx Neuropathy: Yes (BLE) Hx Seizures: Yes (high fever related as a child none since 7yrs old) - GI Hx GI Disorders: Yes Hx Abdominal Pain: Yes - Hx Genitourinary Disorders: Yes Comment:: PCOS, endometriosis in abd cavity - ENDOCRINE Hx Endocrine Disorders: Yes Hx Diabetes: Yes Hx Thyroid Disease: No - MUSCULOSKELETAL Hx Musculoskeletal Disorders: Yes Comment:: Bulging discs, herniated disk, spinal stenosis, 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 [place] - PSYCH Hx Psych Problems: Yes Hx Anxiety: Yes (panic attacks) Hx Behavior Problems: Yes (bipolar) - HEMATOLOGY/ONCOLOGY Hx Hematology/Oncology Disorders: No Family Medical History Any Significant Family History?: No Hx Cancer: Father, Mother, Grandparents *Cancer Comment: lung, colon, prostate, melanoma Hx Diabetes: Father, Mother, Grandparents Hx Heart Disease: Father, Mother Physical Exam - General General Appearance: Alert, Oriented x3, Cooperative, No acute distress Limitations: No limitations - Head Head exam: Atraumatic, Normal inspection - Eye Eye exam: Normal appearance, PERRL, EOMI. negative: Conjunctival injection, Scleral icterus - ENT ENT exam: Normal exam, Mucous membranes moist, Normal orophraynx Ear exam: Normal external inspection Nasal Exam: Normal inspection Mouth exam: Normal external inspection - Neck Neck exam: Normal inspection, Full ROM. negative: Tenderness - Respiratory Respiratory exam: Normal lung sounds bilaterally. negative: Respiratory distress, Rhonchi, Stridor, Wheezes - Cardiovascular Cardiovascular Exam: Regular rate, Normal rhythm, Normal heart sounds Peripheral Pulses: 2+: Radial (R), Radial (L) - GI/Abdominal GI/Abdominal exam: Soft. negative: Tenderness - Rectal Rectal exam: Deferred - exam: Deferred - Extremities Extremities exam: Normal inspection - Back Back exam: Reports: Normal inspection - Neurological Neurological exam: Alert, CN II-XII intact, Normal gait, Oriented X3, Other (No ataxia, normal speech and voice, no PND). negative: Abnormal gait, Altered - Psychiatric Psychiatric exam: Normal affect, Normal mood. negative: Agitated, Anxious - Skin Skin exam: Dry, Intact, Normal color, Warm Course Vital Signs 07/23/19 15:58 Temperature 99.4 F Pulse Rate 117 H Respiratory 18 Rate Blood Pressure 108/77 Pulse Ox 97 - Reevaluation(s) Reevaluation #1: 07/23/19 17:59 The labs were reviewed Glucose is 256 07/23/19 18:39 After the Ofirmev the patient is doing much better The nausea and headache are well controlled DC home to followup with her PCP Medical Decision Making - Lab Data Result diagrams: 07/23/19 17:05 Disposition Disposition: Discharge Clinical Impression: Migraine Qualifiers: Migraine type: unspecified Status migrainosus presence: without status migrainosus Intractability: not intractable Qualified Code(s): G43.909 - Migraine, unspecified, not intractable, without status migrainosus Disposition: Home, Self-Care Condition: (1) Good Instructions: Migraine Headache (ED) Additional Instructions: Call your doctor for the next available follow up appointment Review this ER visit and the tests performed with your family doctor Return to the ER for a recheck if worse, any new concerns or questions Forms: Patient Portal Access Time of Disposition: 18:41 Quality - Quality Measures Quality Measures: N/A, Headache (All Ages) - Headache: Neuroimaging Quality Measure: Measure #419: Overuse of Neuroimaging ICD10 Codes Entered: Yes Neurological Exam: Patient had a normal neurological exam. [G9535] Headache: Use of Neuroimaging: < CTA, CT, MRA or MRI was NOT ordered > [G9534] - Blood Pressure Screening Does Patient Have Any of the Following: No Blood Pressure Classification: Normal BP Reading Systolic Measurement: 108 Diastolic Measurement: 77 Screening for High Blood Pressure: < Normal BP, F/U Not Required > [G8783]
[2019-07-23 17:17] LABS: URINE APPEARANCE CLEAR; URINE BILIRUBIN NEGATIVE (NEGATIVE); URINE BLOOD NEGATIVE (NEGATIVE); URINE COLOR YELLOW; URINE KETONE NEGATIVE (NEGATIVE); URINE LEUKOCYTE ESTERASE NEGATIVE (NEGATIVE); URINE NITRITE NEGATIVE (NEGATIVE); URINE PROTEIN NEGATIVE (NEGATIVE); URINE UROBILINOGEN 0.2 E.U./dL (0.20 - 1.00)
[2019-07-23 17:18] LABS: URINE GLUCOSE (UA) >=1000 mg/dL (NEGATIVE)
[2019-07-23 17:19] LABS: HCG,QUALITATIVE URINE NEGATIVE (NEGATIVE)
[2019-07-23 17:46] LABS: BLOOD UREA NITROGEN 10 mg/dL (6-20)
[2019-07-23 17:47] LABS: CREATININE 0.5 mg/dL (0.5-0.9); EST GLOMERULAR FILTRATION RATE > 60 mL/min
[2019-07-23 17:49] LABS: GLUCOSE,RANDOM 256 mg/dL (74-109)
[2019-07-23] MEDS ORDERED: ACETAMINOPHEN 1,000 MG/100 ML BTL IVPB ONE (18:12)
[2019-07-23] MEDS ORDERED: 0.9 % SODIUM CHLORIDE 1,000 ML BAG IV ONE (18:12)
== END 2019-07-23 18:49 | disposition home or self-care (01) ==
LOC: ER 15:50
DX: G43.909 Migraine, unspecified, not intractable, without status migrainosus (principal); R11.0 Nausea; H53.149 Visual discomfort, unspecified; E11.9 Type 2 diabetes mellitus without complications; Z79.4 Long term (current) use of insulin
CPT/HCPCS: 80048; 81003; 81025; 96365; 96375; 99284; J1200; J1885; J2765; J7030

== ENCOUNTER 2019-09-27 23:27 | Emergency (ER) | payer MEDICARE, OTHER ==
--- NOTE | 2019-09-27 23:49 | Emergency Department Record ---
History of Present Illness - General Chief complaint: Lower Extremity Pain Stated complaint: LEG COLD, SWELLING, POST SURGICAL Time Seen by Provider: 09/27/19 23:43 Source: Patient Mode of Arrival: Wheelchair Limitations: No limitations - History of Present Illness Initial comments: 39 yo female presents to ED for evaluation of coolness and swelling to the left lower extremity following a gastrocnemius recession procedure 9 days ago. Patient reports the procedure was preformed due to recurrent pressure ulcers to the soles of the feet bilaterally, procedure was performed by Dr. Millard at [facility]. Patient reports symptoms have been present for several hours, denies numbness, tingling, or pain to the distal foot/toes. MD Complaint: Other -: Hour(s) Location: Left History of Same: No Consistency: Constant Improves with: Nothing Worsens with: Nothing Associated Symptoms: Denies other symptoms - Related Data Previous Rx's Medication Instructions Recorded Ondansetron [Zofran Odt] 4 mg PO Q8H #15 tab.rapdis 05/01/19 Allergies Allergy/AdvReac Type Severity Reaction Status Date / Time cephalexin monohydrate Allergy Intermediate throat Unverified 09/06/19 11:35 [From Keflex] swelling doxycycline Allergy Intermediate VOMITING Unverified 09/06/19 11:35 fluoxetine HCl [From Prozac] Allergy Intermediate HYPERSENSIT Unverified 09/06/19 11:35 IVITY Sulfa (Sulfonamide Allergy Intermediate HIVES Unverified 09/06/19 11:35 Antibiotics) sulfamethoxazole Allergy Intermediate HIVES Unverified 09/06/19 11:35 [From Bactrim] sumatriptan succinate Allergy Intermediate TACHYCARDIA Unverified 09/06/19 11:35 [From Imitrex] trimethoprim [From Bactrim] Allergy Intermediate HIVES Unverified 09/06/19 11:35 topiramate [From Topamax] AdvReac DIZZINESS Unverified 09/06/19 11:35 Arredondo powder Allergy takes Uncoded 07/23/19 16:23 breath away Imitrex (oral only) AdvReac Intermediate TACHYCARDIA Uncoded 07/23/19 16:23 SILK TAPE AdvReac Mild RASH Uncoded 07/23/19 16:23 Review of Systems Constitutional: Denies: Chills, Fever, Malaise, Night sweats Eyes: Denies: Eye discharge, Eye pain ENT: Denies: Congestion, Ear pain, Epistaxis Respiratory: Denies: Cough, Dyspnea Cardiovascular: Denies: Chest pain, Dyspnea on exertion Endocrine: Denies: Fatigue, Heat or cold intolerance Gastrointestinal: Denies: Abdominal pain, Nausea, Vomiting Genitourinary: Denies: Incontinence, Retention Musculoskeletal: Denies: Arthralgia, Back pain Skin: Denies: Bruising, Change in color Neurological: Denies: Abnormal gait, Confusion, Headache, Seizure Psychiatric: Denies: Anxiety Hematological/Lymphatic: Denies: Anemia, Blood Clots Past Medical History - SOCIAL HISTORY Smoking Status: Never smoker Alcohol Use: None Drug Use: None - RESPIRATORY Hx Respiratory Disorders: Yes Hx Bronchitis: Yes (2015) Hx Sleep Apnea: Yes Hx of CPAP: No (PT IS SUPPOSED TO WEAR ONE) - CARDIOVASCULAR Hx Cardio Disorders: Yes Hx Edema: Yes - NEURO Hx Neuro Disorders: Yes Hx Headaches: Yes Hx of Migraines: Yes Hx Neuropathy: Yes (BLE) Hx Seizures: Yes (high fever related as a child none since 7yrs old) - GI Hx GI Disorders: Yes Hx Abdominal Pain: Yes - Hx Genitourinary Disorders: Yes Comment:: PCOS, endometriosis in abd cavity - ENDOCRINE Hx Endocrine Disorders: Yes Hx Diabetes: Yes Hx Thyroid Disease: No - MUSCULOSKELETAL Hx Musculoskeletal Disorders: Yes Comment:: Bulging discs, herniated disk, spinal stenosis, 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 [place] - PSYCH Hx Psych Problems: Yes Hx Anxiety: Yes (panic attacks) Hx Behavior Problems: Yes (bipolar) - HEMATOLOGY/ONCOLOGY Hx Hematology/Oncology Disorders: No Family Medical History Any Significant Family History?: Yes Hx Cancer: Father, Mother, Grandparents *Cancer Comment: lung, colon, prostate, melanoma Hx Diabetes: Father, Mother, Grandparents Hx Heart Disease: Father, Mother Physical Exam - General General Appearance: Alert, Oriented x3, Cooperative, No acute distress Limitations: No limitations - Head Head exam: Atraumatic, Normocephalic, Normal inspection Head exam detail: negative: Abrasion, Contusion, Marcelino's sign, General tenderness, Hematoma, Laceration - Eye Eye exam: Normal appearance. negative: Conjunctival injection, Periorbital swelling, Periorbital tenderness, Scleral icterus - ENT Ear exam: negative: Auricular hematoma, Auricular trauma Nasal Exam: negative: Active bleeding, Discharge, Dried blood, Foreign body Mouth exam: negative: Drooling, Laceration, Muffled voice, Tongue elevation - Neck Neck exam: Normal inspection. negative: Meningismus, Tenderness - Respiratory Respiratory exam: Normal lung sounds bilaterally. negative: Rales, Respiratory distress, Rhonchi, Stridor - Cardiovascular Cardiovascular Exam: Regular rate, Normal rhythm, Normal heart sounds Peripheral Pulses: 1+: Dorsalis Pedis (R), Dorsalis Pedis (L) - GI/Abdominal GI/Abdominal exam: Soft. negative: Rebound, Rigid, Tenderness - Rectal Rectal exam: Deferred - exam: Deferred - Extremities Extremities exam: Calf tenderness, Pedal edema, Other (Incision site to the right meidal calf appears clean, dry, intact without evidence for infection. Left foot is minimally more cool than the right foot.). negative: Tenderness - Back Back exam: Denies: CVA tenderness (R), CVA tenderness (L) - Neurological Neurological exam: Alert, Oriented X3 - Psychiatric Psychiatric exam: Normal affect, Normal mood - Skin Skin exam: Normal color. negative: Abrasion Type of lesion: negative: abrasion Course - Reevaluation(s) Reevaluation #1: 09/27/19 23:49 Arterial doppler examination of the left foot demonstrates the presence of a dorsalis pedis pulse on examination. Will initiate transfer for doppler examination of the lower extremity to exclude DVT resulting in edema, coolness to the foot distally. Disposition Disposition: Transfer Clinical Impression: Swelling of lower extremity, Post-op pain Disposition: Acute Care Hospital Transfer Transfer To: [facility] Reason For Transfer: Doppler examination Accepting Physician: Елена Time Discussed w/Accepting Physician: 23:49 Forms: Patient Portal Access Time of Disposition: 23:55 Quality - Quality Measures Quality Measures: N/A - Blood Pressure Screening Does Patient Have Any of the Following: No Blood Pressure Classification: Hypertensive Reading Systolic Measurement: 141 Diastolic Measurement: 102 Screening for High Blood Pressure: < First Hypertensive BP, F/U Documented > [G8950] First Hypertensive Follow-up Interventions: Referral to alternative/primary care provider.
== END 2019-09-28 00:12 | disposition short-term general hospital (02) ==
LOC: ER 23:27
DX: G89.18 Other acute postprocedural pain (principal); M79.661 Pain in right lower leg; R22.43 Localized swelling, mass and lump, lower limb, bilateral
CPT/HCPCS: 99285

== ENCOUNTER 2019-11-05 20:50 | Emergency (ER) | payer MEDICARE, OTHER ==
--- NOTE | 2019-11-05 21:39 | Emergency Department Record ---
History of Present Illness - General Chief Complaint: Headache Migraine Stated Complaint: MIGRAINE Time Seen by Provider: 11/05/19 21:33 Source: Patient Mode of Arrival: Ambulatory Limitations: No limitations - History of Present Illness Initial Comments: 39 yo female presents to ED for evaluation of headache symptoms that began 2 days ago, reports that her Botox is "wearing off". Patient also reports that she takes reglan, toradol, and benadryl for her migraine headache symptoms at home but is out of her Toradol. Patient reports similar symptoms with previous headache episodes. Patient denies fevers, chills, neck stiffness, nausea, or vomiting symptoms. MD Complaint: "Migraine" Onset/Timin -: Days(s) Onset Description: Gradual Location: Diffuse Severity: Moderate Quality: Throbbing Consistency: Constant Improves With: Nothing Worsens With: None - Related Data Previous Rx's Medication Instructions Recorded Ondansetron [Zofran Odt] 4 mg PO Q8H #15 tab.rapdis 05/01/19 Allergies Allergy/AdvReac Type Severity Reaction Status Date / Time cephalexin monohydrate Allergy Intermediate throat Verified 11/05/19 21:29 [From Keflex] swelling doxycycline Allergy Intermediate VOMITING Verified 11/05/19 21:29 fluoxetine HCl [From Prozac] Allergy Intermediate HYPERSENSIT Verified 11/05/19 21:29 IVITY Sulfa (Sulfonamide Allergy Intermediate HIVES Verified 11/05/19 21:29 Antibiotics) sulfamethoxazole Allergy Intermediate HIVES Verified 11/05/19 21:29 [From Bactrim] sumatriptan succinate Allergy Intermediate TACHYCARDIA Verified 11/05/19 21:29 [From Imitrex] trimethoprim [From Bactrim] Allergy Intermediate HIVES Verified 11/05/19 21:29 topiramate [From Topamax] AdvReac DIZZINESS Verified 11/05/19 21:29 Arredondo powder Allergy takes Uncoded 11/05/19 21:29 breath away Imitrex (oral only) AdvReac Intermediate TACHYCARDIA Uncoded 11/05/19 21:29 SILK TAPE AdvReac Mild RASH Uncoded 11/05/19 21:29 Review of Systems Constitutional: Denies: Chills, Fever, Malaise, Night sweats Eyes: Denies: Eye discharge, Eye pain ENT: Denies: Congestion, Ear pain, Epistaxis Respiratory: Denies: Cough, Dyspnea Cardiovascular: Denies: Chest pain, Dyspnea on exertion Endocrine: Denies: Fatigue, Heat or cold intolerance Gastrointestinal: Denies: Abdominal pain, Nausea, Vomiting Genitourinary: Denies: Incontinence, Retention Musculoskeletal: Denies: Arthralgia, Back pain Skin: Denies: Bruising, Change in color, Change in hair/nails Neurological: Reports: Headache. Denies: Abnormal gait, Confusion, Seizure Psychiatric: Denies: Anxiety Hematological/Lymphatic: Denies: Anemia, Blood Clots Past Medical History - SOCIAL HISTORY Drug Use: Occasional - RESPIRATORY Hx Respiratory Disorders: Yes Hx Bronchitis: Yes (2014) Hx Sleep Apnea: Yes Hx of CPAP: No (PT IS SUPPOSED TO WEAR ONE) - CARDIOVASCULAR Hx Cardio Disorders: Yes Hx Edema: Yes - NEURO Hx Neuro Disorders: Yes Hx Headaches: Yes Hx of Migraines: Yes Hx Neuropathy: Yes (BLE) Hx Seizures: Yes (high fever related as a child none since 7yrs old) - GI Hx GI Disorders: Yes Hx Abdominal Pain: Yes - Hx Genitourinary Disorders: Yes Comment:: PCOS, endometriosis in abd cavity - ENDOCRINE Hx Endocrine Disorders: Yes Hx Diabetes: Yes Hx Thyroid Disease: No - MUSCULOSKELETAL Hx Musculoskeletal Disorders: Yes Comment:: Bulging discs, herniated disk, spinal stenosis, 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 [place] - PSYCH Hx Psych Problems: Yes Hx Anxiety: Yes (panic attacks) Hx Behavior Problems: Yes (bipolar) - HEMATOLOGY/ONCOLOGY Hx Hematology/Oncology Disorders: No Family Medical History Hx Cancer: Father, Mother, Grandparents *Cancer Comment: lung, colon, prostate, melanoma Hx Diabetes: Father, Mother, Grandparents Hx Heart Disease: Father, Mother Physical Exam - General General Appearance: Alert, Oriented x3, Cooperative, Mild distress Limitations: No limitations - Head Head exam: Atraumatic, Normocephalic, Normal inspection Head exam detail: negative: Abrasion, Contusion, Marcelino's sign, General tenderness, Hematoma, Laceration - Eye Eye exam: Normal appearance. negative: Conjunctival injection, Periorbital swelling, Periorbital tenderness, Scleral icterus - ENT Ear exam: negative: Auricular hematoma, Auricular trauma Nasal Exam: negative: Active bleeding, Discharge, Dried blood, Foreign body Mouth exam: negative: Drooling, Laceration, Muffled voice, Tongue elevation - Neck Neck exam: Normal inspection. negative: Meningismus, Tenderness - Respiratory Respiratory exam: Normal lung sounds bilaterally. negative: Rales, Respiratory distress, Rhonchi, Stridor - Cardiovascular Cardiovascular Exam: Regular rate, Normal rhythm, Normal heart sounds - GI/Abdominal GI/Abdominal exam: Soft. negative: Rebound, Rigid, Tenderness - Rectal Rectal exam: Deferred - exam: Deferred - Extremities Extremities exam: Normal inspection. negative: Pedal edema, Tenderness - Back Back exam: Denies: CVA tenderness (R), CVA tenderness (L) - Neurological Neurological exam: Alert, Normal gait, Oriented X3 - Psychiatric Psychiatric exam: Normal affect, Normal mood - Skin Skin exam: Normal color. negative: Abrasion Type of lesion: negative: abrasion Course - Reevaluation(s) Reevaluation #1: 11/05/19 22:33 Patient was reassessed, reports improvement in her headache symptoms. Patient appears stable for discharge at this time. Disposition Disposition: Discharge Clinical Impression: Acute headache Qualifiers: Headache type: unspecified Intractability: not intractable Qualified Code(s): R51 - Headache Disposition: Home, Self-Care Condition: (2) Stable Instructions: Migraine Headache (ED) Additional Instructions: Return to ED if your symptoms worsen or if you have any concerns. Follow-up with your family doctor in 3-5 days as directed. Forms: Patient Portal Access Time of Disposition: 22:34 Quality - Quality Measures Quality Measures: N/A, Headache (All Ages) - Headache: Neuroimaging Quality Measure: Measure #419: Overuse of Neuroimaging ICD10 Codes Entered: Yes Neurological Exam: Patient had a normal neurological exam. [G9535] Headache: Use of Neuroimaging: < CTA, CT, MRA or MRI was NOT ordered > [G9534] - Blood Pressure Screening Does Patient Have Any of the Following: No Blood Pressure Classification: Pre-Hypertensive BP Reading Systolic Measurement: 138 Diastolic Measurement: 77 Screening for High Blood Pressure: < Pre-Hypertensive BP, F/U Documented > [G8950] Pre-Hypertensive Follow-up Interventions: Referral to alternative/primary care provider.
[2019-11-05] MEDS ORDERED: DIPHENHYDRAMINE HCL 50 MG/ML VIAL IVP ONE (21:40)
[2019-11-05] MEDS ORDERED: METOCLOPRAMIDE HCL 10 MG/2 ML VIAL IVP ONE (21:40)
[2019-11-05] MEDS ORDERED: KETOROLAC 30 MG/ML VIAL IVP ONE (21:40)
[2019-11-05] MEDS ORDERED: 0.9 % SODIUM CHLORIDE 1000ML 1,000 ML IV SCH (21:45)
== END 2019-11-05 22:53 | disposition home or self-care (01) ==
LOC: ER 20:50
DX: G43.909 Migraine, unspecified, not intractable, without status migrainosus (principal)
CPT/HCPCS: 99284 ×2; 96374; 96375; J1885; J1200; J2765; J7030